=== PATIENT | female | born 1960 | race Caucasian/White ===

== ENCOUNTER → 2016-08-10 | Outpatient (CLI) | payer MEDICAID | LOC: SP 14:35 | PROVIDERS: ATTEND Physician Assistant | DX: M79.662 Pain in left lower leg (principal) | CPT/HCPCS: 93971 ==

== ENCOUNTER 2016-11-06 10:52 | Inpatient (IN) | payer MEDICAID ==
--- NOTE | 2016-11-06 11:33 | ER Document Report ---
ED Medical Screen (RME) - General Chief Complaint: Skin Problem Stated Complaint: SKIN PROBLEM Time Seen by Provider: 11/06/16 11:30 Mode of Arrival: Ambulatory Information source: Patient TRAVEL OUTSIDE OF THE [place] IN LAST 30 DAYS: No - HPI Onset: Other - 2 DAYS AGO Onset/Duration: Gradual Quality of pain: Burning, Dull Severity: Moderate Associated Symptoms: Chills, Sweating Exacerbated by: Denies Relieved by: Denies Similar symptoms previously: Yes - CELLULITIS, IN LOWER EXTREMITY Recently seen / treated by doctor: No - Related Data Allergies/Adverse Reactions: adhesive Allergy (Verified 11/06/16 10:55) Cephalosporins Allergy (Verified 11/06/16 10:55) Iodine and Iodide Containing Produc Allergy (Verified 11/06/16 10:55) Home Medications: Current Home Medications Nystatin/Triamcin [Nystatin-Triamcinolone Ointm] 15 gm TP BID 11/06/16 [History] Phentermine HCl 37.5 mg PO DAILY 11/06/16 [History] Past Medical History - General Information source: Patient - Social History Cigarette use (# per day): No Chew tobacco use (# tins/day): No Frequency of alcohol use: None Drug Abuse: None Lives with: Alone Family history: None - Past Medical History Cardiac Medical History: Reports: Hx Hypertension Denies: Hx Coronary Artery Disease, Hx Heart Attack Pulmonary Medical History: Reports: Hx Asthma, Hx Bronchitis Denies: Hx COPD, Hx Pneumonia Neurological Medical History: Denies: Hx Cerebrovascular Accident, Hx Seizures Renal/ Medical History: Denies: Hx Peritoneal Dialysis Musculoskeltal Medical History: Denies Hx Arthritis Skin Medical History: Reports Hx Cellulitis Psychiatric Medical History: Reports: Hx Depression Past Surgical History: Reports: Hx Section, Hx Cholecystectomy, Hx Orthopedic Surgery - foot, Hx Vascular Surgery - umbilical hernia - Immunizations Hx Diphtheria, Pertussis, Tetanus Vaccination: Yes Review of Systems - Review of Systems Constitutional: See HPI Skin: See HPI Physical Exam - Vital signs Vitals: Temp Pulse Resp BP Pulse Ox 98.5 F 126 H 20 144/60 H 95 11/06/16 10:54 11/06/16 10:54 11/06/16 10:54 11/06/16 10:54 11/06/16 10:54 Interpretation: Tachycardic. No: Tachypneic, Febrile Course - Vital Signs Vital signs: Temp Pulse Resp BP Pulse Ox 98.5 F 126 H 20 144/60 H 95 11/06/16 10:54 11/06/16 10:54 11/06/16 10:54 11/06/16 10:54 11/06/16 10:54
[2016-11-06 12:32] LABS: ABSOLUTE EOSINOPHILS # (AUTO) 0.1 10^3/uL (0.0-0.6); ABSOLUTE LYMPHOCYTES (AUTO) 1.9 10^3/uL (0.5-4.7); ABSOLUTE MONOCYTES (AUTO) 0.6 10^3/uL (0.1-1.4); ABSOLUTE NEUT (AUTO) 9.1 10^3/uL (1.7-8.2); BASOPHILS % (AUTO) 0.4 % (0-2); EOSINOPHILS % (AUTO) 1.1 % (0-6); HEMATOCRIT 38.3 % (36.0-47.0); HEMOGLOBIN 11.9 g/dL (12.0-15.5); HGB HCT DIFFERENCE -2.6; LYMPHOCYTES % (AUTO) 16.4 % (13-45); MEAN CORPUSCULAR HEMOGLOBIN 25.6 pg (27.0-33.4); MEAN CORPUSCULAR HGB CONC 30.9 g/dL (32.0-36.0); MEAN CORPUSCULAR VOLUME 83 fl (80-97); MONOCYTES % (AUTO) 4.9 % (3-13); RED BLOOD COUNT 4.64 10^6/uL (3.72-5.28); SEGMENTED NEUTROPHILS % (AUTO) 77.2 % (42-78); WHITE BLOOD COUNT 11.8 10^3/uL (4.0-10.5)
[2016-11-06 12:41] LABS: APPEARANCE,URINE CLOUDY; BILIRUBIN,URINE NEGATIVE (NEGATIVE); GLUCOSE, URINE NEGATIVE (NEGATIVE); KETONES,URINE NEGATIVE (NEGATIVE); LEUKOCYTE ESTERASE,URINE NEGATIVE (NEGATIVE); NITRITE,URINE NEGATIVE (NEGATIVE); PROTEIN,URINE 100 mg/dL (NEGATIVE); URINE SPECIFIC GRAVITY 1.028
[2016-11-06 12:55] LABS: ALANINE AMINOTRANSFERASE 25 U/L (9-52); ALBUMIN 3.5 g/dL (3.5-5.0); ALKALINE PHOSPHATASE 110 U/L (38-126); ANION GAP 11 (5-19); ASPARTATE AMINO TRANSFERASE 32 U/L (14-36); BILIRUBIN,DIRECT 0.4 mg/dL (0.0-0.4); BILIRUBIN,TOTAL 0.6 mg/dL (0.2-1.3); BLOOD UREA NITROGEN 12 mg/dL (7-20); CALCIUM 8.6 mg/dL (8.4-10.2); CARBON DIOXIDE 29 mmol/L (22-30); CHLORIDE 101 mmol/L (98-107); CREATININE RESULT 0.76 mg/dL (0.52-1.25); GLUCOSE 79 mg/dL (75-110); POTASSIUM 3.9 mmol/L (3.6-5.0); TOTAL PROTEIN 7.9 g/dL (6.3-8.2)
[2016-11-06] MEDS ORDERED: MORPHINE SULFATE 10 MG/ML INJ IV ONE (13:23)
[2016-11-06] MEDS ORDERED: VANCOMYCIN HCL INJ 1000 MG VIAL IV ONE (14:11)
--- NOTE | 2016-11-06 14:17 | ER Document Report ---
ED General - General Chief Complaint: Skin Problem Stated Complaint: SKIN PROBLEM Time Seen by Provider: 11/06/16 11:30 Mode of Arrival: Ambulatory Information source: Patient Notes: This is a 56-year-old female with a history of morbid obesity and VTE (on Coumadin), who presents to the emergency room with complaints of fever and chills for the past 2-3 days. Patient states that her abdominal wall started to get red, painful and warm last night. TRAVEL OUTSIDE OF THE [place] IN LAST 30 DAYS: No - HPI Onset: Last week Onset/Duration: Sudden Quality of pain: No pain Associated symptoms: Fever. denies: Chest pain, Shortness of breath Exacerbated by: Denies Relieved by: Denies Similar symptoms previously: No Recently seen / treated by doctor: Yes - Related Data Allergies/Adverse Reactions: adhesive Allergy (Verified 11/06/16 10:55) Cephalosporins Allergy (Verified 11/06/16 10:55) Iodine and Iodide Containing Produc Allergy (Verified 11/06/16 10:55) Home Medications: Current Home Medications Nystatin/Triamcin [Nystatin-Triamcinolone Ointm] 15 gm TP BID 11/06/16 [History] Phentermine HCl 37.5 mg PO DAILY 11/06/16 [History] Past Medical History - General Information source: Patient - Social History Smoking Status: Never Smoker Cigarette use (# per day): No Chew tobacco use (# tins/day): No Frequency of alcohol use: None Drug Abuse: None Lives with: Alone Family History: Reviewed & Not Pertinent Patient has suicidal ideation: No Patient has homicidal ideation: No - Past Medical History Cardiac Medical History: Reports: Hx Hypertension Denies: Hx Coronary Artery Disease, Hx Heart Attack Pulmonary Medical History: Reports: Hx Asthma, Hx Bronchitis Denies: Hx COPD, Hx Pneumonia Neurological Medical History: Denies: Hx Cerebrovascular Accident, Hx Seizures Renal/ Medical History: Denies: Hx Peritoneal Dialysis Musculoskeltal Medical History: Denies Hx Arthritis Skin Medical History: Reports Hx Cellulitis Psychiatric Medical History: Reports: Hx Depression Past Surgical History: Reports: Hx Section, Hx Cholecystectomy, Hx Orthopedic Surgery - foot, Hx Vascular Surgery - umbilical hernia - Immunizations Hx Diphtheria, Pertussis, Tetanus Vaccination: Yes Review of Systems - Review of Systems Constitutional: Chills, Fever EENT: No symptoms reported Cardiovascular: No symptoms reported Respiratory: No symptoms reported Gastrointestinal: No symptoms reported Genitourinary: No symptoms reported Female Genitourinary: No symptoms reported Musculoskeletal: No symptoms reported Skin: See HPI Hematologic/Lymphatic: No symptoms reported Neurological/Psychological: No symptoms reported Physical Exam - Vital signs Vitals: Temp Pulse Resp BP Pulse Ox 98.5 F 126 H 20 144/60 H 95 11/06/16 10:54 11/06/16 10:54 11/06/16 10:54 11/06/16 10:54 11/06/16 10:54 Notes: Physical exam: GENERAL: 56-year-old female, alert and oriented 3, no acute distress HEAD: Atraumatic, normocephalic. EYES: Pupils equal round and reactive to light, extraocular movements intact, sclera anicteric, conjunctiva are normal. ENT: TMs normal, nares patent, oropharynx clear without exudates. Moist mucous membranes. NECK: Normal range of motion, supple without lymphadenopathy or JVD. LUNGS: Breath sounds clear to auscultation bilaterally and equal. No wheezes rales or rhonchi. HEART: Regular rate and rhythm without murmurs, rubs or gallops. ABDOMEN: Soft, normoactive bowel sounds. Patient has a large abdominal wall ( morbid obesity). She does have marked erythema and warmth to the abdomen below the umbilicus on both sides. There is no palpable fluctuance and there is no drainage. EXTREMITIES: Normal range of motion, no pitting or edema. No clubbing or cyanosis. NEUROLOGICAL: Cranial nerves II through XII grossly intact. Normal speech, normal gait. PSYCH: Normal mood, normal affect. SKIN: Warm, Dry, normal turgor, no rashes or lesions noted. Course - Vital Signs Vital signs: Temp Pulse Resp BP Pulse Ox 98.3 F 107 H 18 127/81 H 93 11/06/16 23:32 11/06/16 23:32 11/06/16 23:32 11/06/16 23:32 11/06/16 23:32 - Laboratory Result Diagrams: 11/06/16 12:00 11/06/16 12:00 Laboratory results interpreted by me: 11/06/16 11/06/16 11/06/16 11:50 12:00 12:00 WBC 11.8 H Hgb 11.9 L MCH 25.6 L MCHC 30.9 L RDW 18.0 H Absolute Neutrophils 9.1 H PT 29.9 H Urine Protein 100 H Urine Blood MODERATE H Urine Urobilinogen 2.0 H Discharge - Discharge Clinical Impression: Abdominal wall cellulitis Condition: Stable Disposition: ADMITTED INPATIENT Admitting Provider: Hospitalist - Dr. Goyal Unit Admitted: Medical Floor
[2016-11-06] MEDS ORDERED: ACETAMINOPHEN 325 MG TABLET PO PRN (14:21)
[2016-11-06] MEDS ORDERED: ONDANSETRON HCL INJ/PF 4 MG/2 ML SDV IV PRN (14:21)
[2016-11-06] MEDS ORDERED: VANCOMYCIN HCL 0 MG in DEXTROSE 5%-WATER 250 ML IV NR (14:30)
[2016-11-06 14:45] LABS: PROTHROMBIN TIME 29.9 SEC (11.4-15.4)
--- NOTE | 2016-11-06 15:03 | PDOC H&P ---
History of Present Illness Admission Date/PCP: MARILY ALFONSO PA-C Patient complains of: Fever History of Present Illness: CARLYLE SINHA is a 56 year old female with morbid obesity presents with 24 hours of fever. When she went to bed last evening she felt like she was "getting the flu". She had no other symptoms at that time but when she woke up this morning she used a mirror to look at her abdominal pannus and noted that it was extremely red. She has had a history of right lower extremity cellulitis in the past. She is reportedly a diabetic prior records but states she does not take any medications for this. Past Medical History Cardiac Medical History: Denies: Coronary Artery Disease, Myocardial Infarction Pulmonary Medical History: Reports: Asthma, Bronchitis Denies: Chronic Obstructive Pulmonary Disease (COPD), Pneumonia Neurological Medical History: Denies: Seizures Endocrine Medical History: Reports: Diabetes Mellitus Type 2 - Diet controlled Musculoskeltal Medical History: Denies: Arthritis Psychiatric Medical History: Reports: Depression Hematology: Denies: Anemia Past Surgical History Past Surgical History: Reports: Section, Cholecystectomy, Orthopedic Surgery - foot, Vascular Surgery - umbilical hernia Social History Information Source: Patient Occupation: Works at [employer] Lives with: Alone Smoking Status: Never Smoker Frequency of Alcohol Use: None Hx Recreational Drug Use: No Hx Prescription Drug Abuse: No - Advance Directive Resuscitation Status: Full Code Family History Family History: None - Adopted Parental Family History Reviewed: Yes Children Family History Reviewed: Yes Sibling(s) Family History Reviewed.: Yes Medication/Allergy Home Medications: Loratadine [Claritin 10 mg Tablet] 10 mg PO DAILY 12/02/15 Warfarin Sodium 10 mg PO DAILY 12/02/15 Nystatin/Triamcin [Nystatin-Triamcinolone Ointm] 15 gm TP BID 11/06/16 Phentermine HCl 37.5 mg PO DAILY 11/06/16 Allergies/Adverse Reactions: adhesive Allergy (Verified 11/06/16 10:55) Cephalosporins Allergy (Verified 11/06/16 10:55) Iodine and Iodide Containing Produc Allergy (Verified 11/06/16 10:55) Review of Systems Constitutional: PRESENT: chills, fatigue, fever(s). ABSENT: headache(s), weight gain, weight loss Eyes: ABSENT: visual disturbances Ears: ABSENT: hearing changes Cardiovascular: ABSENT: chest pain, dyspnea on exertion, edema, orthropnea, palpitations Respiratory: ABSENT: cough, hemoptysis Gastrointestinal: PRESENT: abdominal pain. ABSENT: constipation, diarrhea, hematemesis, hematochezia, nausea, vomiting Genitourinary: ABSENT: dysuria, hematuria Musculoskeletal: ABSENT: joint swelling Integumentary: PRESENT: erythema. ABSENT: rash, wounds Neurological: ABSENT: abnormal gait, abnormal speech, confusion, dizziness, focal weakness, syncope Psychiatric: ABSENT: anxiety, depression, homidical ideation, suicidal ideation Endocrine: ABSENT: cold intolerance, heat intolerance, polydipsia, polyuria Hematologic/Lymphatic: ABSENT: easy bleeding, easy bruising Physical Exam Vital Signs: Temp Pulse Resp BP Pulse Ox 98.5 F 126 H 20 144/60 H 95 11/06/16 10:54 11/06/16 10:54 11/06/16 10:54 11/06/16 10:54 11/06/16 10:54 Intake & Output 11/05/16 11/06/16 11/07/16 06:59 06:59 06:59 Weight 189.9 kg PHYSICAL EXAM: GENERAL: Appears well, no acute distress HEENT: Normocephalic, no scleral icterus, conjunctiva clear, EOEM intact, PERRLA , moist mucous membranes NECK: trachea midline, no thyromegally RESPIRATORY: Clear to auscultation, no wheezes/rhonchi CARDIAC: Regular rate and rhythm, no murmur/sulma/rub ABDOMEN: Soft, no distension, no tenderness, no guarding, normal bowel sounds, negative Amezcua sign RECTAL: deferred : deferred EXTREMITIES: No edema, cyanosis, clubbing MUSCULOSKELETAL: No joint swelling or deformity VASCULAR: normal peripheral pulses NEUROLOGIC: Alert, oriented to person/place/time, normal speech, cranial nerves grossly intact, 5/5 strength in all extremities, tactile sensation intact in all extremities SKIN: Erythema/induration of abdominal pannus, no fluctuance noted PSYCHIATRIC: Normal mood, normal affect Results Laboratory Results: 11/06/16 12:00 11/06/16 12:00 11/06/16 11/06/16 11/06/16 11:50 12:00 12:00 WBC 11.8 H RBC 4.64 Hgb 11.9 L Hct 38.3 MCV 83 MCH 25.6 L MCHC 30.9 L RDW 18.0 H Plt Count 273 Seg Neutrophils % 77.2 Lymphocytes % 16.4 Monocytes % 4.9 Eosinophils % 1.1 Basophils % 0.4 Absolute Neutrophils 9.1 H Absolute Lymphocytes 1.9 Absolute Monocytes 0.6 Absolute Eosinophils 0.1 Absolute Basophils 0.0 Sodium 141.0 Potassium 3.9 Chloride 101 Carbon Dioxide 29 Anion Gap 11 BUN 12 Creatinine 0.76 Est GFR ( Amer) > 60 Est GFR (Non-Af Amer) > 60 Glucose 79 Calcium 8.6 Total Bilirubin 0.6 AST 32 ALT 25 Alkaline Phosphatase 110 Total Protein 7.9 Albumin 3.5 Urine Color CANDY Urine Appearance CLOUDY Urine pH 5.0 Ur Specific [place] 1.028 Urine Protein 100 H Urine Glucose (UA) NEGATIVE Urine Ketones NEGATIVE Urine Blood MODERATE H Urine Nitrite NEGATIVE Ur Leukocyte Esterase NEGATIVE Urine WBC (Auto) 10 Urine RBC (Auto) 23 Assessment & Plan - Diagnosis (1) Abdominal wall cellulitis Is this a current diagnosis for this admission?: YesPlan: Admit to the hospital. Continue IV vancomycin as initiated in the emergency department. Patient will likely be in the hospital for 2-3 days until she can transition to oral antibiotics and discharge home. (2) Diet-controlled diabetes mellitus Is this a current diagnosis for this admission?: YesPlan: Blood glucose normal. Hemoglobin A1c last year normal. (3) Morbid obesity Is this a current diagnosis for this admission?: Yes (4) History of DVT (deep vein thrombosis) Is this a current diagnosis for this admission?: YesPlan: Continue home dose of Coumadin 10 mg daily. Monitor PT/INR daily. - Time Time Spent: 50 to 70 Minutes Anticipated discharge: Home Within: within 72 hours
[2016-11-06] MEDS: OXYCODONE-ACETAMINOPHEN 5-325 MG TABLET PO PRN (22:13)
[2016-11-06] MEDS: LORATADINE 10 MG TABLET PO SCH (22:13)
[2016-11-06] MEDS: VANCOMYCIN HCL 1,250 MG in DEXTROSE 5%-WATER 250 ML IV SCH (22:13)
[2016-11-06] MEDS: WARFARIN SODIUM 5 MG TABLET PO SCH (22:13)
[2016-11-06] MEDS: NYSTATIN/TRIAMCIN OINTMENT 15 GM TP SCH (22:13)
[2016-11-07] MEDS: VANCOMYCIN HCL 1,250 MG in DEXTROSE 5%-WATER 250 ML IV SCH ×3 (06:05→21:42)
[2016-11-07] MEDS: OXYCODONE-ACETAMINOPHEN 5-325 MG TABLET PO PRN ×2 (06:16→21:42)
[2016-11-07 06:24] LABS: ABSOLUTE EOSINOPHILS # (AUTO) 0.3 10^3/uL (0.0-0.6); ABSOLUTE LYMPHOCYTES (AUTO) 1.5 10^3/uL (0.5-4.7); ABSOLUTE MONOCYTES (AUTO) 0.6 10^3/uL (0.1-1.4); ABSOLUTE NEUT (AUTO) 5.3 10^3/uL (1.7-8.2); BASOPHILS % (AUTO) 0.4 % (0-2); EOSINOPHILS % (AUTO) 3.4 % (0-6); HEMATOCRIT 33.7 % (36.0-47.0); HEMOGLOBIN 10.7 g/dL (12.0-15.5); HGB HCT DIFFERENCE -1.6; LYMPHOCYTES % (AUTO) 19.6 % (13-45); MEAN CORPUSCULAR HEMOGLOBIN 25.9 pg (27.0-33.4); MEAN CORPUSCULAR HGB CONC 31.7 g/dL (32.0-36.0); MEAN CORPUSCULAR VOLUME 82 fl (80-97); MONOCYTES % (AUTO) 8.2 % (3-13); RED BLOOD COUNT 4.13 10^6/uL (3.72-5.28); RED CELL DISTRIBUTION WIDTH 17.8 % (11.5-14.0); SEGMENTED NEUTROPHILS % (AUTO) 68.4 % (42-78); WHITE BLOOD COUNT 7.8 10^3/uL (4.0-10.5)
[2016-11-07 06:30] LABS: PROTHROMBIN TIME 33.5 SEC (11.4-15.4)
[2016-11-07 06:43] LABS: ANION GAP 8 (5-19); BLOOD UREA NITROGEN 15 mg/dL (7-20); CALCIUM 8.5 mg/dL (8.4-10.2); CARBON DIOXIDE 32 mmol/L (22-30); CHLORIDE 101 mmol/L (98-107); CREATININE RESULT 0.81 mg/dL (0.52-1.25); GLUCOSE 98 mg/dL (75-110); POTASSIUM 4.1 mmol/L (3.6-5.0); SODIUM 141.1 mmol/L (137-145)
[2016-11-07] MEDS: NYSTATIN/TRIAMCIN OINTMENT 15 GM TP SCH (09:13)
[2016-11-07] MEDS ORDERED: LORATADINE 10 MG TABLET PO SCH (10:00)
--- NOTE | 2016-11-07 11:06 | PDOC PROGRESS REPORT ---
Subjective Progress Note for:: 11/07/16 Subjective:: Patient is feeling subjectively better today in general. Abdominal discomfort has improved. She denies fevers or chills. Physical Exam Vital Signs: Temp Pulse Resp BP Pulse Ox 97.9 F 102 H 20 130/76 H 91 L 11/07/16 07:14 11/07/16 07:14 11/07/16 07:14 11/07/16 07:14 11/07/16 07:14 Intake & Output 11/06/16 11/07/16 11/08/16 06:59 06:59 06:59 Intake Total 670 Output Total 1200 Balance -530 Weight 188.3 kg GENERAL: No acute distress HEENT: Conjunctiva clear, nonicteric, moist mucous membranes, no JVD, midline trachea RESPIRATORY: Clear to auscultation bilaterally, no wheezes, no rhonchi CARDIAC: Regular rate and rhythm, no murmurs/gallops/rubs ABDOMEN: Soft, nondistended, nontender, positive bowel sounds, no rebound, no guarding EXTREMETIES: No edema, cyanosis, clubbing NEUROLOGIC: Alert, oriented to person/place/time, CN's grossly intact, no focal deficits SKIN: Erythema/induration of abdominal pannus slightly improved but still pretty extensive PSYCH: Normal mood, normal affect Results Laboratory Results: 11/07/16 05:53 11/07/16 05:53 11/06/16 11/07/16 11/07/16 15:00 05:53 05:53 WBC 7.8 RBC 4.13 Hgb 10.7 L Hct 33.7 L MCV 82 MCH 25.9 L MCHC 31.7 L RDW 17.8 H Plt Count 252 Seg Neutrophils % 68.4 Lymphocytes % 19.6 Monocytes % 8.2 Eosinophils % 3.4 Basophils % 0.4 Absolute Neutrophils 5.3 Absolute Lymphocytes 1.5 Absolute Monocytes 0.6 Absolute Eosinophils 0.3 Absolute Basophils 0.0 Sodium 141.1 Potassium 4.1 Chloride 101 Carbon Dioxide 32 H Anion Gap 8 BUN 15 Creatinine 0.81 Est GFR ( Amer) > 60 Est GFR (Non-Af Amer) > 60 Glucose 98 Lactic Acid 0.9 Calcium 8.5 Assessment & Plan - Diagnosis (1) Abdominal wall cellulitis Is this a current diagnosis for this admission?: YesPlan: Continue IV vancomycin until cellulitis clinically improved significantly. Abdominal wall cellulitis is to extensive to safely treat as an outpatient. Patient will likely be in the hospital for 2-3 days until she can transition to oral antibiotics and discharge home. (2) Diet-controlled diabetes mellitus Is this a current diagnosis for this admission?: YesPlan: Diet controlled. Hemoglobin A1c 6.1 (3) Morbid obesity Is this a current diagnosis for this admission?: Yes (4) History of DVT (deep vein thrombosis) Is this a current diagnosis for this admission?: YesPlan: Continue home dose of Coumadin 10 mg daily. Monitor PT/INR daily. - Time Time Spent with patient: 25-34 minutes Anticipated discharge: Home Within: within 72 hours
[2016-11-07] MEDS: NYSTATIN TOPICAL POWDER 15 GM TP SCH (17:59)
[2016-11-07] MEDS: LORATADINE 10 MG TABLET PO SCH (21:42)
[2016-11-07] MEDS: WARFARIN SODIUM 5 MG TABLET PO SCH (21:42)
[2016-11-08 06:45] LABS: ABSOLUTE EOSINOPHILS # (AUTO) 0.5 10^3/uL (0.0-0.6); ABSOLUTE LYMPHOCYTES (AUTO) 1.8 10^3/uL (0.5-4.7); ABSOLUTE MONOCYTES (AUTO) 0.6 10^3/uL (0.1-1.4); ABSOLUTE NEUT (AUTO) 4.5 10^3/uL (1.7-8.2); BASOPHILS % (AUTO) 0.5 % (0-2); EOSINOPHILS % (AUTO) 6.3 % (0-6); HEMATOCRIT 34.5 % (36.0-47.0); HGB HCT DIFFERENCE -1.5; LYMPHOCYTES % (AUTO) 24.2 % (13-45); MEAN CORPUSCULAR HEMOGLOBIN 26.1 pg (27.0-33.4); MEAN CORPUSCULAR HGB CONC 31.9 g/dL (32.0-36.0); MEAN CORPUSCULAR VOLUME 82 fl (80-97); MONOCYTES % (AUTO) 7.6 % (3-13); RED BLOOD COUNT 4.22 10^6/uL (3.72-5.28); RED CELL DISTRIBUTION WIDTH 17.9 % (11.5-14.0); SEGMENTED NEUTROPHILS % (AUTO) 61.4 % (42-78); WHITE BLOOD COUNT 7.3 10^3/uL (4.0-10.5)
[2016-11-08] MEDS: VANCOMYCIN HCL 1,250 MG in DEXTROSE 5%-WATER 250 ML IV SCH ×3 (06:45→23:30)
[2016-11-08] MEDS: OXYCODONE-ACETAMINOPHEN 5-325 MG TABLET PO PRN (06:50)
[2016-11-08 06:53] LABS: PROTHROMBIN TIME 34.4 SEC (11.4-15.4)
[2016-11-08 07:07] LABS: ANION GAP 7 (5-19); BLOOD UREA NITROGEN 15 mg/dL (7-20); CALCIUM 8.6 mg/dL (8.4-10.2); CARBON DIOXIDE 30 mmol/L (22-30); CHLORIDE 102 mmol/L (98-107); CREATININE RESULT 0.71 mg/dL (0.52-1.25); GLUCOSE 99 mg/dL (75-110); POTASSIUM 4.6 mmol/L (3.6-5.0); SODIUM 139.1 mmol/L (137-145)
--- NOTE | 2016-11-08 09:38 | PDOC PROGRESS REPORT ---
Subjective Progress Note for:: 11/08/16 Subjective:: Patient is feeling subjectively better today in general. She denies fevers or chills. Physical Exam Vital Signs: Temp Pulse Resp BP Pulse Ox 98.6 F 107 H 16 126/65 H 93 11/08/16 08:00 11/08/16 08:00 11/08/16 08:00 11/08/16 08:00 11/08/16 08:00 Intake & Output 11/07/16 11/08/16 11/09/16 06:59 06:59 06:59 Intake Total 670 2600 Output Total 1200 2400 Balance -530 200 Weight 188.3 kg 188.3 kg GENERAL: No acute distress HEENT: Conjunctiva clear, nonicteric, moist mucous membranes, no JVD, midline trachea RESPIRATORY: Clear to auscultation bilaterally, no wheezes, no rhonchi CARDIAC: Regular rate and rhythm, no murmurs/gallops/rubs ABDOMEN: Soft, nondistended, nontender, positive bowel sounds, no rebound, no guarding EXTREMETIES: No edema, cyanosis, clubbing NEUROLOGIC: Alert, oriented to person/place/time, CN's grossly intact, no focal deficits SKIN: Erythema/induration of abdominal pannus slightly improved but remains extensive PSYCH: Normal mood, normal affect Results Laboratory Results: 11/08/16 06:30 11/08/16 06:30 11/08/16 11/08/16 06:30 06:30 WBC 7.3 RBC 4.22 Hgb 11.0 L Hct 34.5 L MCV 82 MCH 26.1 L MCHC 31.9 L RDW 17.9 H Plt Count 265 Seg Neutrophils % 61.4 Lymphocytes % 24.2 Monocytes % 7.6 Eosinophils % 6.3 H Basophils % 0.5 Absolute Neutrophils 4.5 Absolute Lymphocytes 1.8 Absolute Monocytes 0.6 Absolute Eosinophils 0.5 Absolute Basophils 0.0 Sodium 139.1 Potassium 4.6 Chloride 102 Carbon Dioxide 30 Anion Gap 7 BUN 15 Creatinine 0.71 Est GFR ( Amer) > 60 Est GFR (Non-Af Amer) > 60 Glucose 99 Calcium 8.6 Assessment & Plan - Diagnosis (1) Abdominal wall cellulitis Is this a current diagnosis for this admission?: YesPlan: Continue IV vancomycin until cellulitis clinically improved significantly. Abdominal wall cellulitis is to extensive to safely treat as an outpatient. Patient can possibly discharge home on oral antibiotic tomorrow if improved. (2) Diet-controlled diabetes mellitus Is this a current diagnosis for this admission?: Yes (3) Morbid obesity Is this a current diagnosis for this admission?: Yes (4) History of DVT (deep vein thrombosis) Is this a current diagnosis for this admission?: YesPlan: Continue home dose of Coumadin 10 mg daily. Monitor PT/INR daily. - Time Time Spent with patient: 25-34 minutes Anticipated discharge: Home Within: within 24 hours
[2016-11-08] MEDS: NYSTATIN TOPICAL POWDER 15 GM TP SCH ×2 (10:10→17:00)
[2016-11-08] MEDS: WARFARIN SODIUM 5 MG TABLET PO SCH (21:13)
[2016-11-08] MEDS: LORATADINE 10 MG TABLET PO SCH (21:13)
[2016-11-09 05:38] LABS: PROTHROMBIN TIME 39.3 SEC (11.4-15.4)
[2016-11-09] MEDS: VANCOMYCIN HCL 1,250 MG in DEXTROSE 5%-WATER 250 ML IV SCH (07:05)
--- NOTE | 2016-11-09 09:11 | PDOC DISCHARGE SUMMARY ---
General - Admit/Disc Date/PCP Admission Date/Primary Care Provider: 11/06/16 14:21 MARILY ALFONSO PA-C Discharge Date: 11/09/16 - Discharge Diagnosis (1) Abdominal wall cellulitis Is this a current diagnosis for this admission?: Yes (2) Diet-controlled diabetes mellitus Is this a current diagnosis for this admission?: Yes (3) Morbid obesity Is this a current diagnosis for this admission?: Yes (4) History of DVT (deep vein thrombosis) Is this a current diagnosis for this admission?: Yes - Additional Information Resuscitation Status: Full Code Discharge Diet: Regular Discharge Activity: Activity As Tolerated Home Medications: Loratadine [Claritin 10 mg Tablet] 10 mg PO DAILY 12/02/15 Phentermine HCl 37.5 mg PO DAILY 11/06/16 Nystatin [Mycostatin Topical Powder 15 gm] 1 applic TP BID #1 bottle 11/09/16 Oxycodone HCl/Acetaminophen [Percocet 5-325 mg Tablet] 1 tab PO Q6HP PRN #10 tablet 11/09/16 Sulfamethoxazole/Trimethoprim [Bactrim Ds Tablet] 1 each PO BID #20 tablet 11/09 Warfarin Sodium [Coumadin 5 mg Tablet] 7.5 mg PO QHS #45 tablet 11/09/16 History of Present Illness Patient complains of: Fevers History of Present Illness: CARLYLE SINHA is a 56 year old female with morbid obesity presents with 24 hours of fever. When she went to bed last evening she felt like she was "getting the flu". She had no other symptoms at that time but when she woke up this morning she used a mirror to look at her abdominal pannus and noted that it was extremely red. She has had a history of right lower extremity cellulitis in the past. She is reportedly a diabetic prior records but states she does not take any medications for this. Hospital Course Hospital Course: Patient was admitted for abdominal wall cellulitis that was pretty extensive. She was placed on IV vancomycin and had improvement in cellulitis. White blood count was elevated on admission but normalized on IV antibiotic. Patient was afebrile at time of discharge. She will be transitioned to oral Bactrim at discharge. Patient is on chronic anticoagulation with Coumadin for history of DVT. She normally takes Coumadin 10 mg daily. Her INR has been increasing while on antibiotics and is 3.8 at time of discharge. She is advised to hold Coumadin for 2 days and then decrease Coumadin to 7.5 mg daily. Patient is advised to go to her primary care provider in 2-3 days for reevaluation of soft tissue infection and repeat PT/INR Physical Exam Vital Signs: Temp Pulse Resp BP Pulse Ox 98 F 109 H 21 H 122/43 L 92 11/09/16 04:00 11/09/16 04:00 11/09/16 04:00 11/09/16 04:00 11/09/16 04:00 Intake & Output 11/08/16 11/09/16 11/10/16 06:59 06:59 06:59 Intake Total 2600 1386 Output Total 2400 1000 Balance 200 386 Weight 188.3 kg 188.3 kg GENERAL: No acute distress HEENT: Conjunctiva clear, nonicteric, moist mucous membranes, no JVD, midline trachea RESPIRATORY: Clear to auscultation bilaterally, no wheezes, no rhonchi CARDIAC: Regular rate and rhythm, no murmurs/gallops/rubs ABDOMEN: Soft, nondistended, nontender, positive bowel sounds, no rebound, no guarding EXTREMETIES: No edema, cyanosis, clubbing NEUROLOGIC: Alert, oriented to person/place/time, CN's grossly intact, no focal deficits SKIN: Erythema/induration of abdominal pannus improved as compared to admission PSYCH: Normal mood, normal affect Results Laboratory Results: 11/08/16 06:30 11/08/16 06:30 Labs- Entire Visit 11/06/16 11/06/16 11/06/16 11:50 12:00 12:00 WBC 11.8 H RBC 4.64 Hgb 11.9 L Hct 38.3 MCV 83 MCH 25.6 L MCHC 30.9 L RDW 18.0 H Plt Count 273 Seg Neutrophils % 77.2 Lymphocytes % 16.4 Monocytes % 4.9 Eosinophils % 1.1 Basophils % 0.4 Absolute Neutrophils 9.1 H Absolute Lymphocytes 1.9 Absolute Monocytes 0.6 Absolute Eosinophils 0.1 Absolute Basophils 0.0 PT INR Sodium 141.0 Potassium 3.9 Chloride 101 Carbon Dioxide 29 Anion Gap 11 BUN 12 Creatinine 0.76 Est GFR ( Amer) > 60 Est GFR (Non-Af Amer) > 60 Glucose 79 Hemoglobin A1c % Lactic Acid Calcium 8.6 Total Bilirubin 0.6 Direct Bilirubin 0.4 Indirect Bilirubin Not Reportable Neonat Total Bilirubin Not Reportable AST 32 ALT 25 Alkaline Phosphatase 110 Total Protein 7.9 Albumin 3.5 Urine Color CANDY Urine Appearance CLOUDY Urine pH 5.0 Ur Specific [place] 1.028 Urine Protein 100 H Urine Glucose (UA) NEGATIVE Urine Ketones NEGATIVE Urine Blood MODERATE H Urine Nitrite NEGATIVE Urine Bilirubin NEGATIVE Urine Urobilinogen 2.0 H Ur Leukocyte Esterase NEGATIVE Urine WBC (Auto) 10 Urine RBC (Auto) 23 Urine Bacteria (Auto) TRACE Squamous Epi Cells Auto 14 Urine Mucus (Auto) OCC Urine Ascorbic Acid NEGATIVE Time Trough Drawn Vancomycin Trough 11/06/16 11/06/16 11/07/16 12:00 15:00 05:53 WBC 7.8 RBC 4.13 Hgb 10.7 L Hct 33.7 L MCV 82 MCH 25.9 L MCHC 31.7 L RDW 17.8 H Plt Count 252 Seg Neutrophils % 68.4 Lymphocytes % 19.6 Monocytes % 8.2 Eosinophils % 3.4 Basophils % 0.4 Absolute Neutrophils 5.3 Absolute Lymphocytes 1.5 Absolute Monocytes 0.6 Absolute Eosinophils 0.3 Absolute Basophils 0.0 PT 29.9 H INR 2.69 Sodium Potassium Chloride Carbon Dioxide Anion Gap BUN Creatinine Est GFR ( Amer) Est GFR (Non-Af Amer) Glucose Hemoglobin A1c % Lactic Acid 0.9 Calcium Total Bilirubin Direct Bilirubin Indirect Bilirubin Neonat Total Bilirubin AST ALT Alkaline Phosphatase Total Protein Albumin Urine Color Urine Appearance Urine pH Ur Specific [place] Urine Protein Urine Glucose (UA) Urine Ketones Urine Blood Urine Nitrite Urine Bilirubin Urine Urobilinogen Ur Leukocyte Esterase Urine WBC (Auto) Urine RBC (Auto) Urine Bacteria (Auto) Squamous Epi Cells Auto Urine Mucus (Auto) Urine Ascorbic Acid Time Trough Drawn Vancomycin Trough 11/07/16 11/07/16 11/07/16 05:53 05:53 05:53 WBC RBC Hgb Hct MCV MCH MCHC RDW Plt Count Seg Neutrophils % Lymphocytes % Monocytes % Eosinophils % Basophils % Absolute Neutrophils Absolute Lymphocytes Absolute Monocytes Absolute Eosinophils Absolute Basophils PT 33.5 H INR 3.11 Sodium 141.1 Potassium 4.1 Chloride 101 Carbon Dioxide 32 H Anion Gap 8 BUN 15 Creatinine 0.81 Est GFR ( Amer) > 60 Est GFR (Non-Af Amer) > 60 Glucose 98 Hemoglobin A1c % 6.1 H Lactic Acid Calcium 8.5 Total Bilirubin Direct Bilirubin Indirect Bilirubin Neonat Total Bilirubin AST ALT Alkaline Phosphatase Total Protein Albumin Urine Color Urine Appearance Urine pH Ur Specific [place] Urine Protein Urine Glucose (UA) Urine Ketones Urine Blood Urine Nitrite Urine Bilirubin Urine Urobilinogen Ur Leukocyte Esterase Urine WBC (Auto) Urine RBC (Auto) Urine Bacteria (Auto) Squamous Epi Cells Auto Urine Mucus (Auto) Urine Ascorbic Acid Time Trough Drawn Vancomycin Trough 11/08/16 11/08/16 11/08/16 06:30 06:30 06:30 WBC 7.3 RBC 4.22 Hgb 11.0 L Hct 34.5 L MCV 82 MCH 26.1 L MCHC 31.9 L RDW 17.9 H Plt Count 265 Seg Neutrophils % 61.4 Lymphocytes % 24.2 Monocytes % 7.6 Eosinophils % 6.3 H Basophils % 0.5 Absolute Neutrophils 4.5 Absolute Lymphocytes 1.8 Absolute Monocytes 0.6 Absolute Eosinophils 0.5 Absolute Basophils 0.0 PT INR Sodium 139.1 Potassium 4.6 Chloride 102 Carbon Dioxide 30 Anion Gap 7 BUN 15 Creatinine 0.71 Est GFR ( Amer) > 60 Est GFR (Non-Af Amer) > 60 Glucose 99 Hemoglobin A1c % Lactic Acid Calcium 8.6 Total Bilirubin Direct Bilirubin Indirect Bilirubin Neonat Total Bilirubin AST ALT Alkaline Phosphatase Total Protein Albumin Urine Color Urine Appearance Urine pH Ur Specific [place] Urine Protein Urine Glucose (UA) Urine Ketones Urine Blood Urine Nitrite Urine Bilirubin Urine Urobilinogen Ur Leukocyte Esterase Urine WBC (Auto) Urine RBC (Auto) Urine Bacteria (Auto) Squamous Epi Cells Auto Urine Mucus (Auto) Urine Ascorbic Acid Time Trough Drawn 0630 Vancomycin Trough 13.2 11/08/16 11/09/16 06:30 04:18 WBC RBC Hgb Hct MCV MCH MCHC RDW Plt Count Seg Neutrophils % Lymphocytes % Monocytes % Eosinophils % Basophils % Absolute Neutrophils Absolute Lymphocytes Absolute Monocytes Absolute Eosinophils Absolute Basophils PT 34.4 H 39.3 H INR 3.22 3.82 Sodium Potassium Chloride Carbon Dioxide Anion Gap BUN Creatinine Est GFR ( Amer) Est GFR (Non-Af Amer) Glucose Hemoglobin A1c % Lactic Acid Calcium Total Bilirubin Direct Bilirubin Indirect Bilirubin Neonat Total Bilirubin AST ALT Alkaline Phosphatase Total Protein Albumin Urine Color Urine Appearance Urine pH Ur Specific [place] Urine Protein Urine Glucose (UA) Urine Ketones Urine Blood Urine Nitrite Urine Bilirubin Urine Urobilinogen Ur Leukocyte Esterase Urine WBC (Auto) Urine RBC (Auto) Urine Bacteria (Auto) Squamous Epi Cells Auto Urine Mucus (Auto) Urine Ascorbic Acid Time Trough Drawn Vancomycin Trough Qualifiers PATEINT BEING DISCHARGED WITH ANY OF THE FOLLOWING DIAGNOSIS?: No Plan Time Spent: Less than 30 Minutes
--- NOTE | 2016-11-09 10:37 | Physician Advisory Note ---
Physician Advisor ProgressNote .: Pursuant to the plan for [facility], I have reviewed the medical record for this patient. Physician Advisor Statement: Status review: 56yo morbidly obese 56yo on chronic coumadin due to VTE, along w /HTN, asthma, previous cellulitis, DM-2 diet controlled, umbil hernia, depression presented 7/28 AM to ED after 2-3 days of fever/chills and then developing extensive abd wall redness/pain/heat. HR 126, RR20-22, BP 144/60, WBC 11.8, Hgb 11.9, INR 2.69 before abx, (+) induration/erythema/warmth without fluctuance/drainage. Typically, cellulitis with no prior outpt tx is most appropriate for Outpt Obs rather than Inpatient to start, changing to Inpatient if not improved enough for d/c the next day. However, attending documented in H&P that he did not expect sufficient improvement for safe d/c in less than 2 midnights of care in this particular case and therefore ordered Inpatient directly. Although leukocytosis resolved by the next day, and pt began to feel better as soon as the next day compared to on arrival, attending continued to stress the ongoing extensiveness of the cellulitis. She had nearly met SIRS criteria on arrival, and had reported systemic symptoms of fevers/chills as well. Her BMI is 69, and her abdominal size documented to be extensive, so the area involved, "below the umbilicus bilaterally" per ED physician, seen under pannus by pt using mirror, although not quantified r.e. # inches/cm, was likely tremendous given the descriptions. Clearly, there was concern for possible MRSA as cause, given the rapidity with which the cellulitis developed and the abx chosen, which further increases the need for care in not sending pt home until significantly much better, since she would have to go home on a different antibiotic than vancomycin. (If she started to fail outpt Bactrim if she was changed to this in 1 day, then she would likely be right back just as bad off as she was initially, very quickly - attending needed to be certain she was "out of the guerrero" enough to be safe to not only change abx but send home without ongoing constant monitoring.) Patient remained tachycardic, persistently 90s-100s, throughout stay of 3 nights /4 days, so she was not clearly hemodynamically stable. Additionally, she was already nicely therapeutic on her warfarin on arrival, and her INR showed consistent climb each day afterwards on the IV abx, putting her at increasing risk for excessive bleeding. An additional issue is likely underlying obesity hypoventilation syndrome, given her persistently low 90s O2 sats on RA and her BMI. Furthermore, even had she been made Obs initially, given her ongoing findings not yet improving enough for safe d/c after 1 night of IV abx, she would have been appropriate to make Inpatient the next day, 11/07. In fact, she required 4 nights of hospital care & monitoring before attending considered her sufficiently improved to safely discharge. Appropriate for Inpatient status. CK
[2016-11-09 11:20] VITALS: BP 122/43
[2016-11-09] MEDS ORDERED: ONDANSETRON HCL INJ/PF 4 MG/2 ML SDV IV PRN (12:20)
== END 2016-11-09 14:29 | disposition home or self-care (01) | DRG 603 ==
LOC: ER 10:52 → EH 14:21 → 4S 16:10 → 4N 11-07 16:17
PROVIDERS: ADMIT Family Medicine; ATTEND Family Medicine
DX: L03.311 Cellulitis of abdominal wall (principal); Z68.44 Body mass index [BMI] 60.0-69.9, adult; E66.01 Morbid (severe) obesity due to excess calories; E65 Localized adiposity; J45.909 Unspecified asthma, uncomplicated; E11.9 Type 2 diabetes mellitus without complications; I10 Essential (primary) hypertension; F32.9 Major depressive disorder, single episode, unspecified; Z86.718 Personal history of other venous thrombosis and embolism; Z90.49 Acquired absence of other specified parts of digestive tract; Z79.02 Long term (current) use of antithrombotics/antiplatelets; Z79.899 Other long term (current) drug therapy; Z88.8 Allergy status to other drugs, medicaments and biological substances; Z88.3 Allergy status to other anti-infective agents
CPT/HCPCS: 36415; 80048; 80053; 80202; 81001; 83036; 83605; 85025; 85610; 87040; 99284; J3370; J3490; J7060

== ENCOUNTER 2016-11-12 16:36 | Emergency (ER) | payer MEDICAID ==
--- NOTE | 2016-11-12 18:11 | ER Document Report ---
ED Medical Screen (RME) - General Chief Complaint: Skin Problem Stated Complaint: SKIN PROBLEM/ON STOMACH AND LEG Time Seen by Provider: 11/12/16 16:45 Mode of Arrival: Ambulatory Information source: Patient TRAVEL OUTSIDE OF THE [place] IN LAST 30 DAYS: No - HPI Patient complains to provider of: Cellulitis to abdominal wall and left lower extremity Onset: Last week Notes: 11/12/16 18:10 Patient is a 56-year-old female who presents to the emergency room complaining of cellulitis to her lower abdominal wall and left lower extremity is been going on for the past few weeks, she was admitted to this hospital on 11/09/2016 , and discharged several days later, she had a follow-up with her who sent her to the emergency room with the indication that she may need to be placed back on IV antibiotics - Related Data Allergies/Adverse Reactions: adhesive Allergy (Verified 11/12/16 16:40) Cephalosporins Allergy (Verified 11/12/16 16:40) Iodine and Iodide Containing Produc Allergy (Verified 11/12/16 16:40) Past Medical History - Social History Chew tobacco use (# tins/day): No Frequency of alcohol use: None Drug Abuse: None Family history: None - Past Medical History Cardiac Medical History: Reports: Hx Hypertension Denies: Hx Coronary Artery Disease, Hx Heart Attack Pulmonary Medical History: Reports: Hx Asthma, Hx Bronchitis Denies: Hx COPD, Hx Pneumonia Neurological Medical History: Denies: Hx Cerebrovascular Accident, Hx Seizures Endocrine Medical History: Reports: Hx Diabetes Mellitus Type 2 - Diet controlled Renal/ Medical History: Denies: Hx Peritoneal Dialysis Musculoskeltal Medical History: Denies Hx Arthritis Skin Medical History: Reports Hx Cellulitis Psychiatric Medical History: Reports: Hx Depression Past Surgical History: Reports: Hx Section, Hx Cholecystectomy, Hx Orthopedic Surgery - foot, Hx Vascular Surgery - umbilical hernia - Immunizations Hx Diphtheria, Pertussis, Tetanus Vaccination: Yes Physical Exam - Vital signs Vitals: Temp Pulse Resp BP Pulse Ox 98.8 F 115 H 22 H 168/89 H 93 11/12/16 16:40 11/12/16 16:40 11/12/16 16:40 11/12/16 16:40 11/12/16 16:40 Course - Vital Signs Vital signs: Temp Pulse Resp BP Pulse Ox 98.8 F 115 H 22 H 168/89 H 93 11/12/16 16:40 11/12/16 16:40 11/12/16 16:40 11/12/16 16:40 11/12/16 16:40
[2016-11-12 18:44] LABS: ABSOLUTE BASOPHILS # (AUTO) 0.1 10^3/uL (0.0-0.2); ABSOLUTE EOSINOPHILS # (AUTO) 0.5 10^3/uL (0.0-0.6); ABSOLUTE LYMPHOCYTES (AUTO) 2.4 10^3/uL (0.5-4.7); ABSOLUTE MONOCYTES (AUTO) 0.5 10^3/uL (0.1-1.4); ABSOLUTE NEUT (AUTO) 5.9 10^3/uL (1.7-8.2); BASOPHILS % (AUTO) 0.6 % (0-2); EOSINOPHILS % (AUTO) 5.7 % (0-6); HEMATOCRIT 36.3 % (36.0-47.0); HEMOGLOBIN 11.6 g/dL (12.0-15.5); HGB HCT DIFFERENCE -1.5; LYMPHOCYTES % (AUTO) 25.5 % (13-45); MEAN CORPUSCULAR HEMOGLOBIN 25.7 pg (27.0-33.4); MEAN CORPUSCULAR HGB CONC 31.8 g/dL (32.0-36.0); MEAN CORPUSCULAR VOLUME 81 fl (80-97); RED BLOOD COUNT 4.49 10^6/uL (3.72-5.28); RED CELL DISTRIBUTION WIDTH 17.7 % (11.5-14.0); SEGMENTED NEUTROPHILS % (AUTO) 63.2 % (42-78); WHITE BLOOD COUNT 9.4 10^3/uL (4.0-10.5)
[2016-11-12 19:02] LABS: ANION GAP 12 (5-19); BLOOD UREA NITROGEN 17 mg/dL (7-20); CALCIUM 8.9 mg/dL (8.4-10.2); CARBON DIOXIDE 31 mmol/L (22-30); CHLORIDE 99 mmol/L (98-107); CREATININE RESULT 0.97 mg/dL (0.52-1.25); GLUCOSE 96 mg/dL (75-110); POTASSIUM 4.6 mmol/L (3.6-5.0); SODIUM 141.9 mmol/L (137-145)
--- NOTE | 2016-11-12 20:43 | ER Document Report ---
ED Skin Rash/Insect Bite/Abscs - General Chief Complaint: Skin Problem Stated Complaint: SKIN PROBLEM/ON STOMACH AND LEG Time Seen by Provider: 11/12/16 16:45 Mode of Arrival: Ambulatory Notes: Patient is a 56-year-old female that comes emergency department for chief complaint of cellulitis to her lower abdominal wall and on her left lower leg. She was admitted on 11/06/2016, discharged on 11/09/2016, she states that she specifically requested to go home when she started having improvement. She states that at home she has started to develop the cellulitis on her left leg which is new. Patient has had intermittent cellulitis for years now. She denies fever or chills, nausea or vomiting. She states she has been compliant with Bactrim. She is not a diabetic. She states her tetanus is not UTD within 5 years. Only other PMH is hernia repair, cholecystetcomy, orthopedic surgery. TRAVEL OUTSIDE OF THE [place] IN LAST 30 DAYS: No - Related Data Allergies/Adverse Reactions: adhesive Allergy (Verified 11/12/16 16:40) Cephalosporins Allergy (Verified 11/12/16 16:40) Iodine and Iodide Containing Produc Allergy (Verified 11/12/16 16:40) Past Medical History - General Information source: Patient - Social History Smoking Status: Never Smoker Chew tobacco use (# tins/day): No Frequency of alcohol use: None Drug Abuse: None Lives with: Alone Family History: Reviewed & Not Pertinent - Past Medical History Cardiac Medical History: Reports: Hx Hypertension Denies: Hx Coronary Artery Disease, Hx Heart Attack Pulmonary Medical History: Reports: Hx Asthma, Hx Bronchitis Denies: Hx COPD, Hx Pneumonia Neurological Medical History: Denies: Hx Cerebrovascular Accident, Hx Seizures Endocrine Medical History: Reports: Hx Diabetes Mellitus Type 2 - Diet controlled Renal/ Medical History: Denies: Hx Peritoneal Dialysis Musculoskeltal Medical History: Denies Hx Arthritis Skin Medical History: Reports Hx Cellulitis Psychiatric Medical History: Reports: Hx Depression Past Surgical History: Reports: Hx Section, Hx Cholecystectomy, Hx Orthopedic Surgery - foot, Hx Vascular Surgery - umbilical hernia - Immunizations Hx Diphtheria, Pertussis, Tetanus Vaccination: Yes Review of Systems - Review of Systems Constitutional: No symptoms reported EENT: No symptoms reported Cardiovascular: No symptoms reported Respiratory: No symptoms reported Gastrointestinal: No symptoms reported Genitourinary: No symptoms reported Female Genitourinary: No symptoms reported Musculoskeletal: No symptoms reported Skin: See HPI Hematologic/Lymphatic: No symptoms reported Neurological/Psychological: No symptoms reported Physical Exam - Vital signs Vitals: Temp Pulse Resp BP Pulse Ox 98.8 F 115 H 22 H 168/89 H 93 11/12/16 16:40 11/12/16 16:40 11/12/16 16:40 11/12/16 16:40 11/12/16 16:40 Interpretation: Normal - General General appearance: Appears well, Alert In distress: None - HEENT Head: Normocephalic, Atraumatic Eyes: Normal Pupils: PERRL - Respiratory Respiratory status: No respiratory distress Chest status: Nontender Breath sounds: Normal Chest palpation: Normal - Cardiovascular Rhythm: Regular Heart sounds: Normal auscultation Murmur: No - Abdominal Inspection: Other - Lower abdomen with mild warmth and some erythema. No induration, fluctuance, or open wounds. No significant tenderness over the area. There are multiple areas of excoriations and scabs. Distension: No distension Bowel sounds: Normal Tenderness: Nontender Organomegaly: No organomegaly - Back Back: Normal, Nontender - Extremities General upper extremity: Other - Left anterior lower leg with mild warmth and erythema, no induration, fluctuance. There are scattered scabs over the lower extremity skin. No other abnormality noted of the lower extremity. General lower extremity: Normal inspection, Nontender, Normal color, Normal ROM , Normal temperature, Normal weight bearing. No: Beth's sign - Neurological Neuro grossly intact: Yes Cognition: Normal Orientation: AAOx4 [place] Coma Scale Eye Opening: Spontaneous Max Coma Scale Verbal: Oriented [place] Coma Scale Motor: Obeys Commands Max Coma Scale Total: 15 Speech: Normal Motor strength normal: LUE, RUE, LLE, RLE Sensory: Normal - Psychological Associated symptoms: Normal affect, Normal mood - Skin Skin Temperature: Warm Skin Moisture: Dry Skin Color: Normal Course - Re-evaluation Re-evalutation: Patient is a morbidly obese female with some warmth and erythema to the lower abdomen and also to the distal left anterior leg, there are multiple sites of excoriations and multiple picked areas with scabs in the areas of cellulitis. Patient admits that she scratches these areas all the time. She states she does not understand why she used to be able to scratch these and it would heal but now it will not. Areas that are not scratched do not show cellulitis. Patient afebrile, relaxed, talkative, well-appearing. No leukocytosis, no tachycardia on repeat of vital signs. I did discuss patient with hospitalist, Dr. Prescott. He states he does not believe patient meets admission criteria at this time, he recommends patient have altered regimen with primary care follow- up and return precautions. I discussed this with patient, she states she would be comfortable being at home. Patient will be given doxycycline in addition to her back, I recommended elevation of the foot, reexamination within 2 days, and return precautions if anything worsens in any way including spreading redness, fever, etc. Patient states understanding and agreement. - Vital Signs Vital signs: Temp Pulse Resp BP Pulse Ox 97.9 F 95 19 142/83 H 93 11/12/16 22:10 11/12/16 22:10 11/12/16 22:10 11/12/16 22:10 11/12/16 22:10 - Laboratory Result Diagrams: 11/12/16 18:30 11/12/16 18:30 Laboratory results interpreted by me: 11/12/16 11/12/16 11/12/16 18:30 18:30 18:30 Hgb 11.6 L MCH 25.7 L MCHC 31.8 L RDW 17.7 H PT 23.9 H Carbon Dioxide 31 H Discharge - Discharge Clinical Impression: Cellulitis Qualifiers: Site of cellulitis: unspecified site Qualified Code(s): L03.90 - Cellulitis, unspecified Condition: Stable Disposition: HOME, SELF-CARE Additional Instructions: Take the doxycycline antibiotic along with your Bactrim. Stop scratching, apply topical antibiotic to any areas of open skin which were previously scratched. Follow-up with your provider within the next 2 days for a recheck. Return immediately to the emergency department for any concerning or worsening symptoms including spreading redness, fever, or any other concerning symptoms. Prescriptions: Doxycycline Hyclate 100 mg PO BID #14 capsule Forms: Return to Work
[2016-11-12 21:19] LABS: PROTHROMBIN TIME 23.9 SEC (11.4-15.4)
[2016-11-12] MEDS ORDERED: VANCOMYCIN HCL INJ 1000 MG VIAL IV ONE (21:51)
[2016-11-12] MEDS ORDERED: DOXYCYCLINE HYCLATE 100 MG TABLET PO ONE (21:57)
[2016-11-12 22:16] VITALS: BP 142/83
== END 2016-11-12 22:16 | disposition home or self-care (01) ==
LOC: ER 16:36
DX: L03.90 Cellulitis, unspecified (principal); L98.9 Disorder of the skin and subcutaneous tissue, unspecified; R10.30 Lower abdominal pain, unspecified
CPT/HCPCS: 99283; 36415; 87040; 85025; 85610; 80048; J3490

== ENCOUNTER → 2017-01-22 | Outpatient (CLI) | payer MEDICAID ==
[2017-01-22 17:59] LABS: PROTHROMBIN TIME 30.5 SEC (11.4-15.4)
== END ==
LOC: OD 16:42
PROVIDERS: ATTEND Physician Assistant
DX: Z86.711 Personal history of pulmonary embolism (principal)
CPT/HCPCS: 36415; 85610

== ENCOUNTER 2017-01-29 20:23 | Emergency (ER) | payer MEDICAID ==
--- NOTE | 2017-01-29 21:29 | ER Document Report ---
ED Extremity Problem, Lower - General Chief Complaint: Wound Infection Stated Complaint: RIGHT ANKLE PAIN, FEVER Time Seen by Provider: 01/29/17 21:13 Notes: Patient is a 56-year-old female comes emergency department for chief complaint of spreading redness and drainage from her right lower extremity, she states that she had no injury but there appears to be an ulcer and there are multiple weeping areas from the leg she states that she has had cellulitis of the right lower extremity in the past, she states over the past 2 days she has been feeling like she has been running fevers as well. She denies a history of diabetes, she does have a history of DVT, she is on Coumadin for this, she states that a couple of days ago she was therapeutic. She states she is also taking doxycycline antibiotic already, has been doing so for over 2 weeks. She denies any other symptoms including shortness of breath, nausea or vomiting. TRAVEL OUTSIDE OF THE [place] IN LAST 30 DAYS: No - Related Data Allergies/Adverse Reactions: adhesive Allergy (Verified 11/12/16 16:40) Cephalosporins Allergy (Verified 11/12/16 16:40) Iodine and Iodide Containing Produc Allergy (Verified 11/12/16 16:40) Past Medical History - General Information source: Patient - Social History Smoking Status: Never Smoker Frequency of alcohol use: None Drug Abuse: None Lives with: Family Family History: Reviewed & Not Pertinent - Past Medical History Cardiac Medical History: Reports: Hx Hypertension Denies: Hx Coronary Artery Disease, Hx Heart Attack Pulmonary Medical History: Reports: Hx Asthma, Hx Bronchitis Denies: Hx COPD, Hx Pneumonia Neurological Medical History: Denies: Hx Cerebrovascular Accident, Hx Seizures Endocrine Medical History: Reports: Hx Diabetes Mellitus Type 2 - Diet controlled Renal/ Medical History: Denies: Hx Peritoneal Dialysis Musculoskeltal Medical History: Denies Hx Arthritis Skin Medical History: Reports Hx Cellulitis Psychiatric Medical History: Reports: Hx Depression Past Surgical History: Reports: Hx Section, Hx Cholecystectomy, Hx Orthopedic Surgery - foot, Hx Vascular Surgery - umbilical hernia - Immunizations Hx Diphtheria, Pertussis, Tetanus Vaccination: Yes Review of Systems - Review of Systems Constitutional: See HPI EENT: No symptoms reported Cardiovascular: No symptoms reported Respiratory: No symptoms reported Gastrointestinal: No symptoms reported Genitourinary: No symptoms reported Female Genitourinary: No symptoms reported Musculoskeletal: See HPI Skin: See HPI Hematologic/Lymphatic: No symptoms reported Neurological/Psychological: No symptoms reported Physical Exam - Vital signs Vitals: Temp Pulse Resp BP Pulse Ox 98.2 F 106 H 16 151/91 H 96 01/29/17 20:55 01/29/17 20:55 01/29/17 20:55 01/29/17 20:55 01/29/17 20:55 Interpretation: Normal - General General appearance: Appears well In distress: None - Patient is alert, smiling, talkative, well-appearing, morbidly obese - HEENT Head: Normocephalic, Atraumatic Eyes: Normal Conjunctiva: Normal Extraocular movements intact: Yes Eyelashes: Normal Pupils: PERRL Nasal: Normal Mouth/Lips: Normal Mucous membranes: Normal Pharynx: Normal Neck: Normal - Respiratory Respiratory status: No respiratory distress Chest status: Nontender Breath sounds: Normal. No: Decreased air movement, Wheezing Chest palpation: Normal - Cardiovascular Rhythm: Regular. No: Tachycardia - No tachycardia on my exam Heart sounds: Normal auscultation, S1 appreciated, S2 appreciated Murmur: No - Abdominal Inspection: Normal Distension: No distension Bowel sounds: Normal Tenderness: Nontender. No: Tender, Guarding Organomegaly: No organomegaly - Back Back: Normal, Nontender. No: Tender - Extremities General upper extremity: Normal inspection, Nontender, Normal color, Normal ROM , Normal temperature General lower extremity: Other - Bilateral lower extremity edema, right lower extremity with a small oval-shaped opening over the lateral distal leg, no purulent drainage, there is surrounding erythema extending down to the dorsal foot and up towards below the knee, there is weeping fluid from a couple of areas which is clear, there is no induration or fluctuance, good distal pulse and sensation, normal range of motion of the ankle and knee, normal lower extremity exam otherwise. - Neurological Neuro grossly intact: Yes Cognition: Normal Orientation: AAOx4 [place] Coma Scale Eye Opening: Spontaneous Max Coma Scale Verbal: Oriented Max Coma Scale Motor: Obeys Commands [place] Coma Scale Total: 15 Speech: Normal Motor strength normal: LUE, RUE, LLE, RLE Sensory: Normal - Psychological Associated symptoms: Normal affect, Normal mood - Skin Skin Temperature: Warm Skin Moisture: Dry Skin Color: Normal Course - Re-evaluation Re-evalutation: Patient afebrile, no tachycardia on repeat check, well-appearing, no fever, no leukocytosis, no purulent drainage. There is evidence of lower extremity cellulitis which patient has had many times. She actually is on clindamycin instead of doxycycline as originally reported. Patient is not a diabetic, has no evidence of sepsis, exam consistent with recurrent lower extremity cellulitis. Discussed with Dr. Armstrong, recommends outpatient management with better MRSA/ staph coverage. Borders of erythema marked. Patient will be taken off the clindamycin, placed on Augmentin and Bactrim after discussion with patient, discussed wound care, follow-up, return precautions in detail, patient states understanding and agreement. - Vital Signs Vital signs: Temp Pulse Resp BP Pulse Ox 98.6 F 99 18 141/81 H 98 01/29/17 22:21 01/29/17 22:21 01/29/17 22:21 01/29/17 22:21 01/29/17 22:21 - Laboratory Result Diagrams: 01/29/17 21:30 01/29/17 21:30 Laboratory results interpreted by me: 01/29/17 01/29/17 01/29/17 21:30 21:30 21:30 Hgb 11.0 L Hct 33.4 L MCH 26.9 L RDW 16.3 H PT 33.6 H Carbon Dioxide 31 H AST 45 H Discharge - Discharge Clinical Impression: Cellulitis of right lower extremity Condition: Stable Disposition: HOME, SELF-CARE Additional Instructions: Your examination shows lymphedema (fluid buildup) and cellulitis of the lower extremity, recommendation is to elevate your leg, stop taking the clindamycin, take the Bactrim and Augmentin antibiotics as prescribed, follow-up with your primary care provider, and return if he develop any concerning or worsening symptoms including increasing spreading of redness, discolored drainage, fever of 100.4 or greater, or any other concerning symptoms. Prescriptions: Amox Tr/Potassium Clavulanate [Augmentin 875-125 Tablet] 1 tab PO BID 7 Days tablet Sulfamethoxazole/Trimethoprim [Bactrim Ds Tablet] 1 each PO BID #14 tablet Forms: Return to Work Referrals: MARILY ALFONSO PA-C [Primary Care Provider] - Follow up as needed
[2017-01-29 21:46] LABS: ABSOLUTE BASOPHILS # (AUTO) 0.1 10^3/uL (0.0-0.2); ABSOLUTE EOSINOPHILS # (AUTO) 0.3 10^3/uL (0.0-0.6); ABSOLUTE LYMPHOCYTES (AUTO) 2.7 10^3/uL (0.5-4.7); ABSOLUTE MONOCYTES (AUTO) 0.5 10^3/uL (0.1-1.4); BASOPHILS % (AUTO) 0.7 % (0-2); EOSINOPHILS % (AUTO) 3.5 % (0-6); HEMATOCRIT 33.4 % (36.0-47.0); HGB HCT DIFFERENCE -0.4; MEAN CORPUSCULAR HEMOGLOBIN 26.9 pg (27.0-33.4); MEAN CORPUSCULAR HGB CONC 32.9 g/dL (32.0-36.0); MEAN CORPUSCULAR VOLUME 82 fl (80-97); MONOCYTES % (AUTO) 7.2 % (3-13); RED BLOOD COUNT 4.07 10^6/uL (3.72-5.28); RED CELL DISTRIBUTION WIDTH 16.3 % (11.5-14.0); SEGMENTED NEUTROPHILS % (AUTO) 52.6 % (42-78); WHITE BLOOD COUNT 7.6 10^3/uL (4.0-10.5)
[2017-01-29 21:55] LABS: PROTHROMBIN TIME 33.6 SEC (11.4-15.4)
[2017-01-29 22:02] LABS: ALANINE AMINOTRANSFERASE 38 U/L (9-52); ALBUMIN 3.7 g/dL (3.5-5.0); ALKALINE PHOSPHATASE 104 U/L (38-126); ANION GAP 12 (5-19); ASPARTATE AMINO TRANSFERASE 45 U/L (14-36); BILIRUBIN,DIRECT 0.4 mg/dL (0.0-0.4); BILIRUBIN,TOTAL 0.5 mg/dL (0.2-1.3); BLOOD UREA NITROGEN 20 mg/dL (7-20); CALCIUM 8.7 mg/dL (8.4-10.2); CARBON DIOXIDE 31 mmol/L (22-30); CHLORIDE 100 mmol/L (98-107); CREATININE RESULT 0.94 mg/dL (0.52-1.25); GLUCOSE 105 mg/dL (75-110); POTASSIUM 4.3 mmol/L (3.6-5.0); SODIUM 143.4 mmol/L (137-145); TOTAL PROTEIN 7.9 g/dL (6.3-8.2)
[2017-01-29 22:40] VITALS: BP 141/81
[2017-01-29] MEDS ORDERED: AMOXICILLIN TR/POT CLAVULANATE 500-125 MG TAB PO ONE (23:19)
[2017-01-29] MEDS ORDERED: SULFAMETHOXAZOLE/TRIMETHOPRIM 800-160 MG TABLET PO ONE (23:19)
[2017-01-29] MEDS ORDERED: HYDROCODONE/ACETAMINOPHEN 5-325 MG 6 TAB/DSPK PO PRN (23:20)
== END 2017-01-29 23:55 | disposition home or self-care (01) ==
LOC: ER 20:23
DX: L03.115 Cellulitis of right lower limb (principal); R60.0 Localized edema; I10 Essential (primary) hypertension; J45.909 Unspecified asthma, uncomplicated; E66.01 Morbid (severe) obesity due to excess calories; Z68.44 Body mass index [BMI] 60.0-69.9, adult; I82.409 Acute embolism and thrombosis of unspecified deep veins of unspecified lower extremity; Z79.01 Long term (current) use of anticoagulants; Z91.048 Other nonmedicinal substance allergy status; Z88.1 Allergy status to other antibiotic agents; Z88.3 Allergy status to other anti-infective agents
CPT/HCPCS: 99283; 36415; 85025; 85610; 80053; J3490 ×2

== ENCOUNTER → 2017-03-24 | Outpatient (CLI) | payer MEDICAID ==
[2017-03-24 18:01] LABS: PROTHROMBIN TIME 26.3 SEC (11.4-15.4)
== END ==
LOC: OD 16:36
PROVIDERS: ATTEND Physician Assistant
DX: Z86.711 Personal history of pulmonary embolism (principal)
CPT/HCPCS: 36415; 85610

== ENCOUNTER 2017-05-28 13:48 | Emergency (ER) | payer MEDICAID ==
[2017-05-28 17:13] LABS: ABSOLUTE EOSINOPHILS # (AUTO) 0.3 10^3/uL (0.0-0.6); ABSOLUTE LYMPHOCYTES (AUTO) 1.2 10^3/uL (0.5-4.7); ABSOLUTE MONOCYTES (AUTO) 0.4 10^3/uL (0.1-1.4); ABSOLUTE NEUT (AUTO) 3.4 10^3/uL (1.7-8.2); BASOPHILS % (AUTO) 0.8 % (0-2); EOSINOPHILS % (AUTO) 6.1 % (0-6); HEMATOCRIT 31.1 % (36.0-47.0); HEMOGLOBIN 9.7 g/dL (12.0-15.5); LYMPHOCYTES % (AUTO) 22.7 % (13-45); MEAN CORPUSCULAR HEMOGLOBIN 25.1 pg (27.0-33.4); MEAN CORPUSCULAR HGB CONC 31.3 g/dL (32.0-36.0); MEAN CORPUSCULAR VOLUME 80 fl (80-97); MONOCYTES % (AUTO) 7.9 % (3-13); PLATELET COUNT 323 10^3/uL (150-450); RED BLOOD COUNT 3.87 10^6/uL (3.72-5.28); RED CELL DISTRIBUTION WIDTH 16.6 % (11.5-14.0); SEGMENTED NEUTROPHILS % (AUTO) 62.5 % (42-78); TOTAL CELLS COUNTED % (AUTO) 100 %; WHITE BLOOD COUNT 5.5 10^3/uL (4.0-10.5)
[2017-05-28 17:20] LABS: APPEARANCE,URINE SLIGHTLY-CLOUDY; BILIRUBIN,URINE NEGATIVE (NEGATIVE); COLOR,URINE YELLOW; GLUCOSE, URINE NEGATIVE (NEGATIVE); KETONES,URINE NEGATIVE (NEGATIVE); LEUKOCYTE ESTERASE,URINE NEGATIVE (NEGATIVE); NITRITE,URINE NEGATIVE (NEGATIVE); PROTEIN,URINE NEGATIVE (NEGATIVE); URINE SPECIFIC GRAVITY 1.008; UROBILINOGEN,URINE NEGATIVE mg/dL (<2.0)
[2017-05-28 17:40] LABS: ALANINE AMINOTRANSFERASE 29 U/L (9-52); ALBUMIN 3.4 g/dL (3.5-5.0); ALKALINE PHOSPHATASE 80 U/L (38-126); ANION GAP 7 (5-19); ASPARTATE AMINO TRANSFERASE 21 U/L (14-36); BILIRUBIN,DIRECT 0.4 mg/dL (0.0-0.4); BILIRUBIN,TOTAL 0.5 mg/dL (0.2-1.3); BLOOD UREA NITROGEN 12 mg/dL (7-20); CALCIUM 9.3 mg/dL (8.4-10.2); CARBON DIOXIDE 34 mmol/L (22-30); CHLORIDE 99 mmol/L (98-107); GLUCOSE 88 mg/dL (75-110); POTASSIUM 4.3 mmol/L (3.6-5.0); SODIUM 140.2 mmol/L (137-145); TOTAL PROTEIN 7.3 g/dL (6.3-8.2)
--- NOTE | 2017-05-28 18:03 | ER Document Report ---
ED Skin Rash/Insect Bite/Abscs - General Chief Complaint: Skin Problem Stated Complaint: SKIN CONCERN Time Seen by Provider: 05/28/17 15:40 Mode of Arrival: Medic Information source: Patient Notes: Patient is a 57-year-old female who presents to the ER today for cellulitis to her abdomen/pannus. Patient states that she has been on clindamycin for 2 weeks and just started Bactrim 2 days ago by her primary care provider. Patient states that she came into the ER today for the same issue, and states that it is all over her abdomen. She denies any fevers or chills, nausea, vomiting, diarrhea. TRAVEL OUTSIDE OF THE [place] IN LAST 30 DAYS: No - Related Data Allergies/Adverse Reactions: adhesive Allergy (Verified 05/28/17 13:50) Cephalosporins Allergy (Verified 05/28/17 13:50) Iodine and Iodide Containing Produc Allergy (Verified 05/28/17 13:50) sulfamethoxazole [From Bactrim] Allergy (Verified 05/28/17 13:50) trimethoprim [From Bactrim] Allergy (Verified 05/28/17 13:50) Past Medical History - General Information source: Patient - Social History Smoking Status: Never Smoker Chew tobacco use (# tins/day): No Frequency of alcohol use: None Drug Abuse: None Family History: Hypertension Patient has suicidal ideation: No Patient has homicidal ideation: No - Past Medical History Cardiac Medical History: Reports: Hx Hypertension Denies: Hx Coronary Artery Disease, Hx Heart Attack Pulmonary Medical History: Reports: Hx Asthma, Hx Bronchitis Denies: Hx COPD, Hx Pneumonia Neurological Medical History: Denies: Hx Cerebrovascular Accident, Hx Seizures Endocrine Medical History: Reports: Hx Diabetes Mellitus Type 2 - Diet controlled Renal/ Medical History: Denies: Hx Peritoneal Dialysis Musculoskeltal Medical History: Denies Hx Arthritis Skin Medical History: Reports Hx Cellulitis Psychiatric Medical History: Reports: Hx Depression Past Surgical History: Reports: Hx Section, Hx Cholecystectomy, Hx Orthopedic Surgery - foot, Hx Vascular Surgery - umbilical hernia - Immunizations Hx Diphtheria, Pertussis, Tetanus Vaccination: Yes Review of Systems - Review of Systems Constitutional: No symptoms reported EENT: No symptoms reported Cardiovascular: No symptoms reported Respiratory: No symptoms reported Gastrointestinal: No symptoms reported Genitourinary: No symptoms reported Female Genitourinary: No symptoms reported Musculoskeletal: No symptoms reported Skin: See HPI Hematologic/Lymphatic: No symptoms reported Neurological/Psychological: No symptoms reported Physical Exam - Vital signs Vitals: Temp Pulse Resp BP Pulse Ox 99.5 F 109 H 18 122/61 90 L 05/28/17 13:55 05/28/17 13:55 05/28/17 13:55 05/28/17 13:55 05/28/17 13:55 - Notes Notes: PHYSICAL EXAMINATION: GENERAL: Morbidly obese, but in no acute distress. HEAD: Atraumatic, normocephalic. EYES: Pupils equal round and reactive to light, extraocular movements intact, sclera anicteric, conjunctiva are normal. NECK: Normal range of motion, supple without lymphadenopathy LUNGS: CTAB and equal. No wheezes rales or rhonchi. HEART: Regular rate and rhythm without murmurs ABDOMEN: Large pannus, soft, no tenderness. No guarding, no rebound BACK: no vertebral tenderness, normal ROM GI/: no CVA tenderness EXTREMITIES: Normal range of motion, no pitting edema. No cyanosis. NEUROLOGICAL: Cranial nerves grossly intact. Normal sensory/motor exams. PSYCH: Normal mood, normal affect. SKIN: Warm, Dry, normal turgor, minimal erythema to lower pannus Course - Re-evaluation Re-evalutation: 05/28/17 18:08 It is difficult to appreciate any erythema to the pannus, possibly see some very minimal erythema, patient got started on Bactrim 2 days ago and her white count today is completely normal. I advised that she continue the Bactrim and follow up with her primary care provider. She is afebrile with normal vital signs today. - Vital Signs Vital signs: Temp Pulse Resp BP Pulse Ox 99.5 F 109 H 18 122/61 90 L 05/28/17 13:55 05/28/17 13:55 05/28/17 13:55 05/28/17 13:55 05/28/17 13:55 - Laboratory Result Diagrams: 05/28/17 16:54 05/28/17 16:54 Laboratory results interpreted by me: 05/28/17 05/28/17 05/28/17 16:54 16:54 16:54 Hgb 9.7 L Hct 31.1 L MCH 25.1 L MCHC 31.3 L RDW 16.6 H Eosinophils % 6.1 H Carbon Dioxide 34 H Albumin 3.4 L Urine Blood SMALL H Discharge - Discharge Clinical Impression: Abdominal wall cellulitis Condition: Stable Disposition: HOME, SELF-CARE Additional Instructions: Return immediately for any new or worsening symptoms. Follow up with primary care provider, call tomorrow to make followup appointment. Referrals: MARILY ALFONSO PA-C [Primary Care Provider] - Follow up as needed
[2017-05-28 18:31] VITALS: BP 136/68
== END 2017-05-28 18:29 | disposition home or self-care (01) ==
LOC: ER 13:48
DX: L03.311 Cellulitis of abdominal wall (principal)
CPT/HCPCS: 36415; 80053; 81001; 85025; 99283

== ENCOUNTER 2017-07-06 13:27 | Inpatient (IN) | payer MEDICAID ==
[2017-07-06] MEDS ORDERED: VANCOMYCIN HCL INJ 1000 MG VIAL IV ONE (14:22)
--- NOTE | 2017-07-06 14:24 | ER Document Report ---
ED Medical Screen (RME) - General Chief Complaint: Leg Pain Stated Complaint: LEG PAIN Time Seen by Provider: 07/06/17 14:17 Notes: RME DISCLOSURE I have seen this patient as part of a Rapid Medical Evaluation and, if applicable, placed any initially appropriate orders. The patient will be seen and fully evaluated, including a full history and physical exam, by a provider ( in Main ED or Fast Track) when a room becomes available. 57-year-old female PMH chronic leg wound here with complaints of worsening cellulitis and increasing size of her right leg wound over the past 1 week. She has been taking to outpatient antibiotics which have not prevented the increase and worsening of symptoms. She states her wound clinic doctor would like her to be admitted for IV antibiotics. EXAM Tachycardic TRAVEL OUTSIDE OF THE [place] IN LAST 30 DAYS: No - Related Data Allergies/Adverse Reactions: adhesive Allergy (Verified 07/06/17 13:29) Cephalosporins Allergy (Verified 07/06/17 13:29) Iodine and Iodide Containing Produc Allergy (Verified 07/06/17 13:29) sulfamethoxazole [From Bactrim] Allergy (Verified 07/06/17 13:29) trimethoprim [From Bactrim] Allergy (Verified 07/06/17 13:29) Past Medical History - Social History Family history: None - Past Medical History Cardiac Medical History: Reports: Hx Hypertension Denies: Hx Coronary Artery Disease, Hx Heart Attack Pulmonary Medical History: Reports: Hx Asthma, Hx Bronchitis Denies: Hx COPD, Hx Pneumonia Neurological Medical History: Denies: Hx Cerebrovascular Accident, Hx Seizures Endocrine Medical History: Reports: Hx Diabetes Mellitus Type 2 - Diet controlled Renal/ Medical History: Denies: Hx Peritoneal Dialysis Musculoskeltal Medical History: Denies Hx Arthritis Skin Medical History: Reports Hx Cellulitis Psychiatric Medical History: Reports: Hx Depression Past Surgical History: Reports: Hx Section, Hx Cholecystectomy, Hx Orthopedic Surgery - foot, Hx Vascular Surgery - umbilical hernia - Immunizations Hx Diphtheria, Pertussis, Tetanus Vaccination: Yes History of Influenza Vaccine for 01/2017 - 06/2017 Season: Refused Physical Exam - Vital signs Vitals: Temp Pulse Resp BP Pulse Ox 98.3 F 117 H 26 H 157/81 H 94 07/06/17 13:35 07/06/17 13:35 07/06/17 13:35 07/06/17 13:35 07/06/17 13:35 Course - Vital Signs Vital signs: Temp Pulse Resp BP Pulse Ox 98.3 F 117 H 26 H 157/81 H 94 07/06/17 13:35 07/06/17 13:35 07/06/17 13:35 07/06/17 13:35 07/06/17 13:35
[2017-07-06 14:56] LABS: ABSOLUTE BASOPHILS # (AUTO) 0.1 10^3/uL (0.0-0.2); ABSOLUTE EOSINOPHILS # (AUTO) 0.3 10^3/uL (0.0-0.6); ABSOLUTE LYMPHOCYTES (AUTO) 1.8 10^3/uL (0.5-4.7); ABSOLUTE MONOCYTES (AUTO) 0.5 10^3/uL (0.1-1.4); ABSOLUTE NEUT (AUTO) 6.3 10^3/uL (1.7-8.2); BASOPHILS % (AUTO) 0.7 % (0-2); EOSINOPHILS % (AUTO) 3.1 % (0-6); HEMATOCRIT 32.4 % (36.0-47.0); HEMOGLOBIN 10.2 g/dL (12.0-15.5); LYMPHOCYTES % (AUTO) 19.8 % (13-45); MEAN CORPUSCULAR HEMOGLOBIN 24.9 pg (27.0-33.4); MEAN CORPUSCULAR HGB CONC 31.3 g/dL (32.0-36.0); MEAN CORPUSCULAR VOLUME 79 fl (80-97); MONOCYTES % (AUTO) 5.3 % (3-13); PLATELET COUNT 326 10^3/uL (150-450); RED BLOOD COUNT 4.09 10^6/uL (3.72-5.28); SEGMENTED NEUTROPHILS % (AUTO) 71.1 % (42-78); TOTAL CELLS COUNTED % (AUTO) 100 %; WHITE BLOOD COUNT 8.8 10^3/uL (4.0-10.5)
[2017-07-06 15:13] LABS: ANION GAP 5 (5-19); BLOOD UREA NITROGEN 14 mg/dL (7-20); CARBON DIOXIDE 38 mmol/L (22-30); CHLORIDE 100 mmol/L (98-107); GLUCOSE 85 mg/dL (75-110); POTASSIUM 4.4 mmol/L (3.6-5.0); SODIUM 143.1 mmol/L (137-145)
--- NOTE | 2017-07-06 15:18 | RADIOLOGY REPORT (SQ) ---
EXAM DESCRIPTION: TIBIA FIBULA RIGHT COMPLETED DATE/TIME: 07/06/2017 3:03 pm REASON FOR STUDY: R distal leg wound; eval gas or osteo findings COMPARISON: CT right leg 02/03/2017 NUMBER OF VIEWS: Two views. TECHNIQUE: Two radiographic images acquired of the right tibia and fibula to include the knee and an kle in at least one projection. LIMITATIONS: None. FINDINGS: MINERALIZATION: Normal. BONES: No acute fracture or obvious bony destructive changes seen. Arthritic changes seen at the kne e. SOFT TISSUES: Diffuse soft tissue swelling, with scattered calcification concerning for venous stasis . The soft tissue irregularity laterally of the distal leg concerning for ulceration. No other soft tissue air. OTHER: No other significant finding. IMPRESSION: No acute bony changes. Diffuse soft tissue swelling with scattered calcification concerning for venous stasis. TECHNICAL DOCUMENTATION: JOB ID: [id number] [employer]- All Rights Reserved Reading location - IP/workstation name: [facility]
[2017-07-06 15:32] LABS: ERYTHROCYTE SEDIMENTATION RATE 72 mm/hr (0-30)
--- NOTE | 2017-07-06 16:41 | ER Document Report ---
ED Extremity Problem, Lower - General Mode of Arrival: Wheelchair Information source: Patient TRAVEL OUTSIDE OF THE [place] IN LAST 30 DAYS: No <DEN COTTON - Last Filed: 07/06/17 18:13> <AYALA PAIGE - Last Filed: 07/12/17 07:03> - General Chief Complaint: Leg Pain Stated Complaint: LEG PAIN Time Seen by Provider: 07/06/17 14:17 Notes: Patient is a morbidly obese 57-year-old female that presents to the emergency department today with complaints of a wound to her right lower extremity. This wound is chronic in nature and has been present since January 2017. Patient states she has been followed by wound care for the last month and they advised her to come here for IV antibiotics today after measuring the surrounding erythema and having concern for the distance it has spread. Patient states she is mildly nauseated but denies any fevers, chills, cough, congestion, or vomiting. Patient denies a history of diabetes. (DEN COTTON) - Related Data Allergies/Adverse Reactions: adhesive Allergy (Verified 07/06/17 13:29) Cephalosporins Allergy (Verified 07/06/17 13:29) Iodine and Iodide Containing Produc Allergy (Verified 07/06/17 13:29) sulfamethoxazole [From Bactrim] Allergy (Verified 07/06/17 13:29) trimethoprim [From Bactrim] Allergy (Verified 07/06/17 13:29) Past Medical History - General Information source: Patient - Social History Smoking Status: Never Smoker Cigarette use (# per day): No Chew tobacco use (# tins/day): No Frequency of alcohol use: None Drug Abuse: None Lives with: Family Family History: Reviewed & Not Pertinent, Hypertension Patient has suicidal ideation: No Patient has homicidal ideation: No - Past Medical History Cardiac Medical History: Reports: Hx Hypertension Pulmonary Medical History: Reports: Hx Asthma, Hx Bronchitis Endocrine Medical History: Reports: Hx Diabetes Mellitus Type 2 - Diet controlled Skin Medical History: Reports Hx Cellulitis Psychiatric Medical History: Reports: Hx Depression Past Surgical History: Reports: Hx Section, Hx Cholecystectomy, Hx Orthopedic Surgery - foot, Hx Vascular Surgery - umbilical hernia - Immunizations Hx Diphtheria, Pertussis, Tetanus Vaccination: Yes <DEN COTTON - Last Filed: 07/06/17 18:13> Review of Systems - Review of Systems Constitutional: denies: Chills, Fever EENT: denies: Nose congestion Cardiovascular: No symptoms reported Respiratory: denies: Cough Gastrointestinal: See HPI, Nausea. denies: Vomiting Genitourinary: No symptoms reported Female Genitourinary: No symptoms reported Musculoskeletal: No symptoms reported Skin: See HPI, Other - RLE wound Hematologic/Lymphatic: No symptoms reported Neurological/Psychological: No symptoms reported -: Yes All other systems reviewed and negative <DEN COTTON - Last Filed: 07/06/17 18:13> Physical Exam <DEN COTTON - Last Filed: 07/06/17 18:13> <AYALA PAIGE - Last Filed: 07/12/17 07:03> - Vital signs Vitals: Temp Pulse Resp BP Pulse Ox 98.3 F 117 H 26 H 157/81 H 94 07/06/17 13:35 07/06/17 13:35 07/06/17 13:35 07/06/17 13:35 07/06/17 13:35 - Notes Notes: Physical Exam: General: Alert, morbidly obese. HEENT: Normocephalic. Atraumatic. PERRL. Extraocular movements intact. Oropharynx clear. Neck: Supple. Non-tender. Respiratory: No respiratory distress. Clear and equal breath sounds bilaterally. Cardiovascular: Regular rate and rhythm. Abdominal: Morbidly obese. Non-tender. No distension. Normal Bowel Sounds. Back: Non-tender. No deformity or step off. Extremities: Moves all four extremities. Upper extremities: Normal inspection. Normal ROM. Lower extremities: See skin exam. 1+ pitting edema bilaterally. Normal ROM. Neurological: Normal cognition. AAOx4. Normal speech. Psychological: Normal affect. Normal Mood. Skin: Stasis dermatitis to bilateral lower extremities. Large wound to right lower extremity with multiple centralized ulcerations with surrounding erythema consistent with cellulitis, area is hot to the touch. 2+ dorsalis pedis pulses. (DEN COTTON) Course - Laboratory Result Diagrams: 07/06/17 14:35 07/06/17 14:35 <DEN COTTON - Last Filed: 07/06/17 18:13> - Laboratory Result Diagrams: 07/10/17 06:39 07/10/17 06:39 <AYALA PAIGE - Last Filed: 07/12/17 07:03> - Re-evaluation Re-evalutation: 07/06/17 16:56 Called placed to hospitalist Lynne, waiting for call back. 07/06/17 17:01 Dr. Pink accepted admission (DEN COTTON) 07/06/17 17:43 Patient admitted by hospitalist wound and blood cultures drawn and vancomycin provided. (AYALA PAIGE) - Vital Signs Vital signs: Temp Pulse Resp BP Pulse Ox 98.1 F 97 20 122/79 90 L 07/12/17 03:58 07/12/17 03:58 07/12/17 03:58 07/12/17 05:20 07/12/17 03:58 - Laboratory Laboratory results interpreted by me: 07/06/17 07/06/17 07/06/17 14:35 14:35 14:35 Hgb 10.2 L Hct 32.4 L MCV 79 L MCH 24.9 L MCHC 31.3 L RDW 17.0 H ESR 72 H PT 16.0 H Carbon Dioxide 38 H Discharge <DEN COTTON - Last Filed: 07/06/17 18:13> - Discharge Admitting Provider: Lynne Unit Admitted: Medical Floor <AYALA PAIGE - Last Filed: 07/12/17 07:03> - Discharge Clinical Impression: Cellulitis Qualifiers: Site of cellulitis: extremity Site of cellulitis of extremity: lower extremity Laterality: right Qualified Code(s): L03.115 - Cellulitis of right lower limb Condition: Good Disposition: ADMITTED INPATIENT Scribe Attestation: 07/12/17 07:03 I personally performed the services described in the documentation, reviewed and edited the documentation which was dictated to the scribe in my presence, and it accurately records my words and actions. (AYALA PAIGE) Scribe Documentation - Scribe Written by Hilario:: Hilario Rivas, 07/06/2017 182 acting as scribe for :: Jonh <DEN COTTON - Last Filed: 07/06/17 18:13>
[2017-07-06] MEDS ORDERED: PROCHLORPERAZINE EDISYLATE INJ 10 MG/2 ML VIAL IV ONE (17:30)
[2017-07-06] MEDS ORDERED: OXYCODONE-ACETAMINOPHEN 5-325 MG TABLET PO ONE (17:31)
[2017-07-06] MEDS ORDERED: HYDROXYZINE PAMOATE 25 MG CAPSULE PO PRN (17:39)
[2017-07-06] MEDS ORDERED: MORPHINE SULFATE 10 MG/ML INJ IV ONE (17:55)
[2017-07-06] MEDS ORDERED: (PENDING PHARMACY ID) (Ammonium Lactate 1 APPLIC) TP SCH (18:00)
[2017-07-06] MEDS ORDERED: PIPERACILLIN/TAZOBACTAM 4.5 GM VIAL IV SCH (18:30)
--- NOTE | 2017-07-06 18:48 | PDOC H&P ---
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 She presented to the ER due to worsening pain, erythema and discharge of her R leg wounds despite oral outpatient antibiotics and wound care at the wound clinic. X-ray of the tibial and fibular showed diffuse soft tissue swelling with scattered calcification concerning for venous stasis no acute bony changes. The patient is complaining of a lot of right lower extremity pain. 2 mg of IV morphine was ordered by me and given in the ER. Past Medical History Cardiac Medical History: Reports: Hypertension Denies: Coronary Artery Disease, Myocardial Infarction Pulmonary Medical History: Reports: Asthma, Bronchitis Denies: Chronic Obstructive Pulmonary Disease (COPD), Pneumonia Neurological Medical History: Denies: Seizures Endocrine Medical History: Reports: None, Diabetes Mellitus Type 2 - Diet controlled Musculoskeltal Medical History: Denies: Arthritis Psychiatric Medical History: Reports: Depression Hematology: Denies: Anemia Past Surgical History Past Surgical History: Reports: Section, Cholecystectomy, Orthopedic Surgery - foot, Vascular Surgery - umbilical hernia Social History Information Source: Patient Smoking Status: Never Smoker Frequency of Alcohol Use: None Hx Recreational Drug Use: No Drugs: None Hx Prescription Drug Abuse: No Family History Family History: Hypertension Parental Family History Reviewed: Yes Children Family History Reviewed: Yes Sibling(s) Family History Reviewed.: Yes Medication/Allergy Home Medications: Ammonium Lactate [Lac-Hydrin 12% Lotion 225Gm/Bottle] 1 applic TP BID 02/02/17 Loratadine [Claritin 10 mg Tablet] 10 mg PO DAILY 02/02/17 Mupirocin [Bactroban 2% Ointment 22 gm] 1 applic TP BID 02/02/17 Nystatin [Mycostatin Topical Powder 15 gm] 1 applic TP BID 02/02/17 Hydroxyzine Pamoate [Vistaril 25 mg Capsule] 25 mg PO Q6HP PRN 30 Days #30 capsule 02/10/17 Warfarin Sodium [Coumadin 4 mg Tablet] 4 mg PO QHS #0 02/10/17 Allergies/Adverse Reactions: adhesive Allergy (Verified 07/06/17 13:29) Cephalosporins Allergy (Verified 07/06/17 13:29) Iodine and Iodide Containing Produc Allergy (Verified 07/06/17 13:29) sulfamethoxazole [From Bactrim] Allergy (Verified 07/06/17 13:29) trimethoprim [From Bactrim] Allergy (Verified 07/06/17 13:29) Review of Systems Constitutional: ABSENT: chills, fever(s) Nose, Mouth, and Throat: ABSENT: sore throat Respiratory: ABSENT: dyspnea Gastrointestinal: ABSENT: diarrhea, heartburn Genitourinary: ABSENT: dysuria Musculoskeletal: PRESENT: as per HPI Integumentary: PRESENT: other Neurological: ABSENT: focal weakness Psychiatric: ABSENT: depression Endocrine: ABSENT: heat intolerance Physical Exam Vital Signs: Temp Pulse Resp BP Pulse Ox 98.3 F 117 H 26 H 157/81 H 94 07/06/17 13:35 07/06/17 13:35 07/06/17 13:35 07/06/17 13:35 07/06/17 13:35 Intake & Output 07/05/17 07/06/17 07/07/17 06:59 06:59 06:59 Weight 198.7 kg General appearance: PRESENT: mild distress, morbidly obese Eye exam: PRESENT: EOMI Ear exam: PRESENT: normal external ear exam Respiratory exam: PRESENT: clear to auscultation tony, symmetrical, unlabored Cardiovascular exam: PRESENT: RRR GI/Abdominal exam: PRESENT: normal bowel sounds, soft Rectal exam: PRESENT: deferred Additional comments: Right lower leg erythema with an area of ulceration 5 cm x 3 cm with slough and purulence in the base. No fluctuance palpated. Results Laboratory Results: 07/06/17 14:35 07/06/17 14:35 07/06/17 07/06/17 14:35 14:35 WBC 8.8 RBC 4.09 Hgb 10.2 L Hct 32.4 L MCV 79 L MCH 24.9 L MCHC 31.3 L RDW 17.0 H Plt Count 326 Seg Neutrophils % 71.1 Lymphocytes % 19.8 Monocytes % 5.3 Eosinophils % 3.1 Basophils % 0.7 Absolute Neutrophils 6.3 Absolute Lymphocytes 1.8 Absolute Monocytes 0.5 Absolute Eosinophils 0.3 Absolute Basophils 0.1 Sodium 143.1 Potassium 4.4 Chloride 100 Carbon Dioxide 38 H Anion Gap 5 BUN 14 Creatinine 0.74 Est GFR ( Amer) > 60 Est GFR (Non-Af Amer) > 60 Glucose 85 Calcium 9.0 Impressions: Tibia/Fibula X-Ray 07/06/17 14:21 IMPRESSION: No acute bony changes. Diffuse soft tissue swelling with scattered calcification concerning for venous stasis. Assessment & Plan - Diagnosis (1) Cellulitis of right lower extremity Is this a current diagnosis for this admission?: Yes Plan: Started on clindamycin and Zosyn. Wound and blood cultures obtained. Analgesics as needed for pain. (2) History of DVT (deep vein thrombosis) Is this a current diagnosis for this admission?: No Plan: Continue Coumadin. Monitor INR. (3) Morbid obesity Is this a current diagnosis for this admission?: Yes - Time Time Spent: 50 to 70 Minutes - Inpatient Certification Medical Necessity: Failure to Improve With Outpatient Therapy, Need for Pain Control, Need for IV Antibiotics
[2017-07-06] MEDS ORDERED: INFLUENZA ADLT QUAD (36MOS+) 2017-18 VAC 0.5 ML SYR IM PRN (20:28)
[2017-07-06] MEDS ORDERED: PIPERACILLIN SODIUM/TAZOBACTAM 4.5 GM in NORMAL SALINE 100 ML IV SCH (21:00)
[2017-07-06] MEDS ORDERED: WARFARIN SODIUM 4 MG TABLET PO SCH (22:00)
[2017-07-06] MEDS ORDERED: CLINDAMYCIN 600 MG/D5W RTU 600 MG/50 ML RTUPB IV SCH (22:00)
[2017-07-06] MEDS: PIPERACILLIN SODIUM/TAZOBACTAM 4.5 GM in NORMAL SALINE 100 ML IV SCH (22:00)
[2017-07-06] MEDS ORDERED: MUPIROCIN 2% OINTMENT 22 GM TP SCH (22:00)
[2017-07-06] MEDS ORDERED: (PENDING PHARMACY ID) (Warfarin Sodium 4 MG) PO SCH (22:00)
[2017-07-06] MEDS: LACTOBACILLUS ACIDOPHILUS 250 MG TAB PO SCH (22:37)
[2017-07-06] MEDS: MORPHINE SULFATE 10 MG/ML INJ IV PRN (22:38)
[2017-07-06] MEDS: WARFARIN SODIUM 4 MG TABLET PO SCH (22:39)
[2017-07-06] MEDS ORDERED: COLLAGENASE CLOSTRIDIUM HIST. OINT 30 GM TP ONE (23:00)
[2017-07-06] MEDS ORDERED: CLINDAMYCIN 600 MG/D5W RTU 600 MG/50 ML RTUPB IV ONE (23:00)
[2017-07-06] MEDS ORDERED: COLLAGENASE CLOSTRIDIUM HIST. OINT 30 GM ONE (23:16)
[2017-07-07] MEDS: OXYCODONE-ACETAMINOPHEN 5-325 MG TABLET PO PRN ×3 (01:01→20:41)
[2017-07-07] MEDS: HEPARIN SOD (PORCINE) 5,000 UNIT/ML 1 ML SYRINGE SUBCUT SCH ×4 (01:58→22:16)
[2017-07-07] MEDS: AMMONIUM LACTATE 12% LOTION 225GM BOTTLE TP SCH ×3 (01:58→22:16)
[2017-07-07] MEDS: PIPERACILLIN SODIUM/TAZOBACTAM 4.5 GM in NORMAL SALINE 100 ML IV SCH ×4 (03:10→20:33)
[2017-07-07] MEDS: HYDROXYZINE PAMOATE 25 MG CAPSULE PO PRN ×2 (03:25→20:33)
[2017-07-07] MEDS: CLINDAMYCIN 600 MG/D5W RTU 600 MG/50 ML RTUPB IV SCH ×3 (05:40→22:10)
[2017-07-07] MEDS: MORPHINE SULFATE 10 MG/ML INJ IV PRN ×2 (05:48→16:30)
[2017-07-07 06:50] LABS: INTERNATIONAL RATION (INR) 1.21; PROTHROMBIN TIME 16.1 SEC (11.4-15.4)
[2017-07-07 07:03] LABS: ALANINE AMINOTRANSFERASE 72 U/L (9-52); ALBUMIN 3.2 g/dL (3.5-5.0); ALKALINE PHOSPHATASE 100 U/L (38-126); ANION GAP 5 (5-19); ASPARTATE AMINO TRANSFERASE 139 U/L (14-36); BILIRUBIN,DIRECT 0.5 mg/dL (0.0-0.4); BILIRUBIN,TOTAL 0.9 mg/dL (0.2-1.3); BLOOD UREA NITROGEN 13 mg/dL (7-20); CARBON DIOXIDE 36 mmol/L (22-30); CHLORIDE 99 mmol/L (98-107); GLUCOSE 106 mg/dL (75-110); POTASSIUM 4.5 mmol/L (3.6-5.0); SODIUM 139.6 mmol/L (137-145); TOTAL PROTEIN 6.9 g/dL (6.3-8.2)
[2017-07-07] MEDS ORDERED: ENOXAPARIN SODIUM INJ 40 MG/0.4 ML DISP.SYRIN SUBCUT SCH (10:00)
[2017-07-07] MEDS ORDERED: COLLAGENASE CLOSTRIDIUM HIST. OINT 30 GM TP SCH (10:00)
[2017-07-07] MEDS: LACTOBACILLUS ACIDOPHILUS 250 MG TAB PO SCH ×2 (10:11→22:10)
[2017-07-07] MEDS: LORATADINE 10 MG TABLET PO SCH (10:11)
--- NOTE | 2017-07-07 13:39 | RADIOLOGY REPORT (SQ) ---
EXAM DESCRIPTION: VENOUS UNILATERAL LOWER COMPLETED DATE/TIME: 07/07/2017 1:28 pm REASON FOR STUDY: pain and swelling of Right leg COMPARISON: None. TECHNIQUE: Dynamic and static velázquez scale and color images acquired of the right leg venous system. S elected spectral images acquired with additional compression and augmentation maneuvers. The contrala teral common femoral vein and saphenofemoral junction were also imaged. Images stored on PACS. LIMITATIONS: Body habitus. FINDINGS: COMMON FEMORAL: Normal phasicity, compression and augmentation. No visualized echogenic ma terial on velázquez scale. No defects on color images. FEMORAL: Normal compression and augmentation. No visualized echogenic material on velázquez scale. No defe cts on color images. POPLITEAL: Normal compression, augmentation. No visualized echogenic material on velázquez scale. No defec ts on color images. CALF VESSELS: Normal compression, augmentation. No visualized echogenic material on velázquez scale. No de fects on color images. GSV and SSV: Normal compression, augmentation. No visualized echogenic material on velázquez scale. No def ects on color images. ANY DEEP VENOUS INSUFFICIENCY: Not evaluated. ANY EVIDENCE OF POPLITEAL CYST: No. OTHER: No other significant finding. CONTRALATERAL COMMON FEMORAL VEIN AND SAPHENOFEMORAL JUNCTION: Normal phasicity, compression and augmentation. No visualized echogenic material on velázquez scale. No de fects on color images. IMPRESSION: NO EVIDENCE DVT OR SVT IN THE RIGHT LEG. TECHNICAL DOCUMENTATION: JOB ID: [id number] [employer]- All Rights Reserved Reading location - IP/workstation name: [email or web address]
--- NOTE | 2017-07-07 14:34 | EKG REPORT ---
SEVERITY:- BORDERLINE ECG - SINUS RHYTHM BORDERLINE PROLONGED QT INTERVAL : Confirmed by: Ervin Rubio MD 07-Jul-2017 14:34:23
[2017-07-07] MEDS: COLLAGENASE CLOSTRIDIUM HIST. OINT 30 GM TP SCH ×2 (15:49→20:08)
--- NOTE | 2017-07-07 16:05 | PDOC PROGRESS REPORT ---
Subjective Progress Note for:: 07/07/17 Subjective:: Feels better today. R leg is still swollen, but less red. Venous Doppler right lower extremity was negative for DVT. Reason For Visit: CELLULITIS FAILED OUTPATIENT ANTIBIOTICS Physical Exam Vital Signs: Temp Pulse Resp BP Pulse Ox 97.8 F 95 19 132/68 H 90 L 07/07/17 11:05 07/07/17 11:05 07/07/17 11:05 07/07/17 11:05 07/07/17 11:05 Intake & Output 07/06/17 07/07/17 07/08/17 06:59 06:59 06:59 Intake Total 300 Balance 300 Weight 198.7 kg 198.7 kg General appearance: PRESENT: no acute distress, morbidly obese Mouth exam: PRESENT: moist Neck exam: ABSENT: tracheal deviation Respiratory exam: PRESENT: clear to auscultation tony, symmetrical, unlabored. ABSENT: wheezes Cardiovascular exam: PRESENT: RRR GI/Abdominal exam: PRESENT: soft Additional comments: Right lower leg erythema improved, ulceration 5 cm x 3 cm with slough and purulence in the base. Results Laboratory Results: 07/07/17 06:23 07/07/17 07/07/17 06:23 06:23 Sodium 139.6 Potassium 4.5 Chloride 99 Carbon Dioxide 36 H Anion Gap 5 BUN 13 Creatinine 0.74 Est GFR ( Amer) > 60 Est GFR (Non-Af Amer) > 60 Glucose 106 Calcium 9.0 Magnesium 1.8 Total Bilirubin 0.9 AST 139 H ALT 72 H Alkaline Phosphatase 100 Total Protein 6.9 Albumin 3.2 L TSH 2.03 Impressions: Tibia/Fibula X-Ray 07/06/17 14:21 IMPRESSION: No acute bony changes. Diffuse soft tissue swelling with scattered calcification concerning for venous stasis. Venous Doppler Study 07/07/17 00:00 IMPRESSION: NO EVIDENCE DVT OR SVT IN THE RIGHT LEG. Assessment & Plan - Diagnosis (1) Cellulitis of right lower extremity Is this a current diagnosis for this admission?: Yes Plan: Day 2 clindamycin and Zosyn. Follow-up on wound and blood cultures. Analgesics as needed for pain. Continue wound care. (2) History of DVT (deep vein thrombosis) Is this a current diagnosis for this admission?: No Plan: Continue Coumadin. Monitor INR. (3) Morbid obesity Is this a current diagnosis for this admission?: Yes - Time Time Spent with patient: 25-34 minutes
[2017-07-07] MEDS: WARFARIN SODIUM 4 MG TABLET PO SCH (22:10)
[2017-07-08] MEDS: MORPHINE SULFATE 10 MG/ML INJ IV PRN ×3 (02:09→22:57)
[2017-07-08] MEDS: PIPERACILLIN SODIUM/TAZOBACTAM 4.5 GM in NORMAL SALINE 100 ML IV SCH ×2 (02:09→10:16)
[2017-07-08] MEDS: HYDROXYZINE PAMOATE 25 MG CAPSULE PO PRN ×3 (04:24→23:05)
[2017-07-08] MEDS: OXYCODONE-ACETAMINOPHEN 5-325 MG TABLET PO PRN ×2 (04:24→19:28)
[2017-07-08] MEDS: CLINDAMYCIN 600 MG/D5W RTU 600 MG/50 ML RTUPB IV SCH (05:59)
[2017-07-08] MEDS: HEPARIN SOD (PORCINE) 5,000 UNIT/ML 1 ML SYRINGE SUBCUT SCH ×3 (06:03→22:36)
[2017-07-08] MEDS: LORATADINE 10 MG TABLET PO SCH (10:15)
[2017-07-08] MEDS: LACTOBACILLUS ACIDOPHILUS 250 MG TAB PO SCH ×2 (10:15→22:35)
[2017-07-08] MEDS: AMMONIUM LACTATE 12% LOTION 225GM BOTTLE TP SCH ×2 (10:17→22:36)
--- NOTE | 2017-07-08 11:32 | PDOC PROGRESS REPORT ---
Subjective Progress Note for:: 07/08/17 Subjective:: Is requesting to shower. Continues to have R lower extremity swelling and discomfort. Venous Doppler was negative for DVT. Reason For Visit: CELLULITIS FAILED OUTPATIENT ANTIBIOTICS Physical Exam Vital Signs: Temp Pulse Resp BP Pulse Ox 98.1 F 95 18 139/77 H 85 L 07/08/17 08:32 07/08/17 08:32 07/08/17 08:32 07/08/17 08:32 07/08/17 08:32 Intake & Output 07/07/17 07/08/17 07/09/17 06:59 06:59 06:59 Intake Total 300 1126 Balance 300 1126 Weight 198.7 kg 198 kg General appearance: PRESENT: no acute distress, morbidly obese Eye exam: ABSENT: periorbital swelling Ear exam: PRESENT: normal external ear exam Mouth exam: PRESENT: moist, neck supple Neck exam: ABSENT: tracheal deviation Respiratory exam: PRESENT: symmetrical, unlabored Cardiovascular exam: PRESENT: RRR GI/Abdominal exam: PRESENT: normal bowel sounds, soft. ABSENT: tenderness Rectal exam: PRESENT: deferred Additional comments: Right leg ulceration with surrounding erythema, the erythema has improved. There is a lot of slough in the base of the wound. Results Laboratory Results: 07/07/17 06:23 Impressions: Tibia/Fibula X-Ray 07/06/17 14:21 IMPRESSION: No acute bony changes. Diffuse soft tissue swelling with scattered calcification concerning for venous stasis. Venous Doppler Study 07/07/17 00:00 IMPRESSION: NO EVIDENCE DVT OR SVT IN THE RIGHT LEG. Assessment & Plan - Diagnosis (1) Cellulitis of right lower extremity Is this a current diagnosis for this admission?: Yes Plan: Day 3 of antibiotics. We will switch to Vanco and meropenem. Wound culture growing E. coli and staph. Sensitivities for staph aureus pending. Analgesics as needed for pain. Continue wound care. Surgical consult for possible debridement. (2) History of DVT (deep vein thrombosis) Is this a current diagnosis for this admission?: No (3) Morbid obesity Is this a current diagnosis for this admission?: Yes
[2017-07-08] MEDS ORDERED: VANCOMYCIN HCL 0 MG in DEXTROSE 5%-WATER 250 ML IV NR (11:45)
[2017-07-08] MEDS ORDERED: MEROPENEM 1 GM in NORMAL SALINE 50 ML IV SCH (14:00)
[2017-07-08] MEDS: MEROPENEM 1 GM in NORMAL SALINE 100 ML IV SCH ×2 (14:46→22:36)
[2017-07-08] MEDS: COLLAGENASE CLOSTRIDIUM HIST. OINT 30 GM TP SCH ×3 (14:53→18:03)
--- NOTE | 2017-07-08 16:21 | PDOC CONSULTATION ---
Consultation Consult Date: 07/08/17 Consult reason:: ulcers right lower leg with cellulitis History of Present Illness Admission Date/PCP: 07/06/17 17:58 MARILY ALFONSO PA-C Patient complains of: Pains right lower leg History of Present Illness: Claims started to have ulcerations right lower leg in . She is being followed at the wound care center q Wednesday. She tried Unna Boot for 2 months but claims she is allergic to it and therefore stopped. SHE WAS SENT TO THE [facility] for antibiotic tx according to the patient. She was advised leg elevation but she claims she is not able to do it because of dyspnea whenlying flat and elevating legs. She just had a venous US which showed normal findings and no DVT/SVT Past Medical History Cardiac Medical History: Reports: Hypertension Denies: Coronary Artery Disease, Myocardial Infarction Pulmonary Medical History: Reports: Asthma, Bronchitis Denies: Chronic Obstructive Pulmonary Disease (COPD), Pneumonia Neurological Medical History: Denies: Seizures Endocrine Medical History: Reports: None, Diabetes Mellitus Type 2 - Diet controlled Musculoskeltal Medical History: Denies: Arthritis Psychiatric Medical History: Reports: Depression - from time to time pt stated Hematology: Denies: Anemia Past Surgical History Past Surgical History: Reports: Section, Cholecystectomy, Orthopedic Surgery - foot, Vascular Surgery - umbilical hernia Social History Lives with: Family Smoking Status: Never Smoker Frequency of Alcohol Use: None Hx Recreational Drug Use: No Drugs: None Hx Prescription Drug Abuse: No - Advance Directive Resuscitation Status: Full Code Family History Family History: Hypertension Parental Family History Reviewed: Yes Children Family History Reviewed: No Sibling(s) Family History Reviewed.: No Medication/Allergy Home Medications: Ammonium Lactate [Lac-Hydrin 12% Lotion 225Gm/Bottle] 1 applic TP BID 02/02/17 Loratadine [Claritin 10 mg Tablet] 10 mg PO DAILY 02/02/17 Nystatin [Mycostatin Topical Powder 15 gm] 1 applic TP BID 02/02/17 Hydroxyzine Pamoate [Vistaril 25 mg Capsule] 25 mg PO Q6HP PRN 07/06/17 Oxycodone HCl/Acetaminophen [Percocet 5-325 mg Tablet] 1 tab PO Q6HP PRN Warfarin Sodium [Coumadin 4 mg Tablet] 8 mg PO QHS 07/06/17 Collagenase Clostridium Hist. [Santyl Ointment 30 gm] 1 applic TOP DAILY Allergies/Adverse Reactions: adhesive Allergy (Verified 07/06/17 13:29) Cephalosporins Allergy (Verified 07/06/17 13:29) Iodine and Iodide Containing Produc Allergy (Verified 07/06/17 13:29) sulfamethoxazole [From Bactrim] Allergy (Verified 07/06/17 13:29) trimethoprim [From Bactrim] Allergy (Verified 07/06/17 13:29) Review of Systems Constitutional: PRESENT: other - Denies chills/fever Eyes: PRESENT: other - no visual/hearing problems Respiratory: PRESENT: other - no cough Gastrointestinal: PRESENT: other - no N/V Genitourinary: PRESENT: other - no dysuria Musculoskeletal: PRESENT: other - no joint swelling Neurological: PRESENT: other - no seizures Psychiatric: PRESENT: depression Endocrine: PRESENT: other - no polyuria Physical Exam Vital Signs: Temp Pulse Resp BP Pulse Ox 98.5 F 74 17 109/79 90 L 07/08/17 12:08 07/08/17 12:08 07/08/17 12:08 07/08/17 12:08 07/08/17 12:08 Intake & Output 07/07/17 07/08/17 07/09/17 06:59 06:59 06:59 Intake Total 300 1126 480 Balance 300 1126 480 Weight 198.7 kg 198 kg General appearance: PRESENT: mild distress, morbidly obese Head exam: PRESENT: atraumatic Eye exam: PRESENT: conjunctiva pink Mouth exam: PRESENT: moist Neck exam: PRESENT: full ROM Respiratory exam: PRESENT: clear to auscultation tony Cardiovascular exam: PRESENT: RRR Pulses: PRESENT: normal radial pulses, normal dorsalis pedis pul - difficult to palpate ankle pulses partly because of edema GI/Abdominal exam: PRESENT: soft Rectal exam: PRESENT: deferred Extremities exam: PRESENT: calf tenderness - right lateral where the 2 ulcers are, pedal edema, +1 edema Musculoskeletal exam: PRESENT: tenderness - marked tenderness along the right lateral area where there is erythema and the 2 ulcers in the middle Neurological exam: PRESENT: alert, oriented to person, oriented to place, oriented to time, oriented to situation Psychiatric exam: PRESENT: anxious Skin exam: PRESENT: erythema, warm - along rt lateral lower leg Results Laboratory Results: 07/07/17 06:23 Impressions: Tibia/Fibula X-Ray 07/06/17 14:21 IMPRESSION: No acute bony changes. Diffuse soft tissue swelling with scattered calcification concerning for venous stasis. Venous Doppler Study 07/07/17 00:00 IMPRESSION: NO EVIDENCE DVT OR SVT IN THE RIGHT LEG. Assessment & Plan - Diagnosis (2) Cellulitis Qualifiers: Site of cellulitis: extremity Site of cellulitis of extremity: lower extremity Laterality: right Qualified Code(s): L03.115 - Cellulitis of right lower limb Is this a current diagnosis for this admission?: Yes (3) Cellulitis of right lower extremity Is this a current diagnosis for this admission?: Yes (4) Morbid obesity Is this a current diagnosis for this admission?: Yes - Time Time Spent: 30 to 50 Minutes - Inpatient Certification Medical Necessity: Failure to Improve With Outpatient Therapy, Significant Comorbidiites Make Outpatient Treatment Too Risky, Need for Pain Control, Need for IV Antibiotics, Risk of Complication if Not Cared For in Hospital - Plan Summary Plan Summary: Continue with Santyl dressings over ulcers Try leg elevation since pt unable to tolerate UNNA boot placement at this time. Hopefully after a few days. Continue IV antibiotic tx
--- NOTE | 2017-07-08 18:31 | Physician Advisory Note ---
Physician Advisor ProgressNote .: Pursuant to the plan for [facility], I have reviewed the medical record for this patient. Physician Advisor Statement: QUick note for chart reviewers - no indication of sepsis in this case. CK
[2017-07-08] MEDS: WARFARIN SODIUM 4 MG TABLET PO SCH (22:35)
[2017-07-09] MEDS: OXYCODONE-ACETAMINOPHEN 5-325 MG TABLET PO PRN ×3 (02:31→21:27)
[2017-07-09] MEDS: MEROPENEM 1 GM in NORMAL SALINE 100 ML IV SCH ×3 (05:18→21:29)
[2017-07-09] MEDS: HEPARIN SOD (PORCINE) 5,000 UNIT/ML 1 ML SYRINGE SUBCUT SCH ×3 (05:19→21:29)
[2017-07-09 07:10] LABS: INTERNATIONAL RATION (INR) 1.53; PROTHROMBIN TIME 19.3 SEC (11.4-15.4)
[2017-07-09] MEDS ORDERED: WARFARIN SODIUM 4 MG TABLET PO SCH (08:17)
[2017-07-09] MEDS: LACTOBACILLUS ACIDOPHILUS 250 MG TAB PO SCH ×2 (10:14→21:27)
[2017-07-09] MEDS: LORATADINE 10 MG TABLET PO SCH (10:14)
[2017-07-09] MEDS: AMMONIUM LACTATE 12% LOTION 225GM BOTTLE TP SCH ×2 (10:14→21:29)
[2017-07-09] MEDS: COLLAGENASE CLOSTRIDIUM HIST. OINT 30 GM TP SCH ×3 (10:14→18:33)
[2017-07-09] MEDS: MORPHINE SULFATE 10 MG/ML INJ IV PRN (14:28)
--- NOTE | 2017-07-09 14:57 | PDOC PROGRESS REPORT ---
Subjective Progress Note for:: 07/09/17 Subjective:: Right lower leg still with a lot of pains Reason For Visit: CELLULITIS FAILED OUTPATIENT ANTIBIOTICS Physical Exam Vital Signs: Temp Pulse Resp BP Pulse Ox 98.1 F 87 20 149/97 H 93 07/09/17 11:42 07/09/17 11:42 07/09/17 11:42 07/09/17 11:42 07/09/17 11:42 Intake & Output 07/08/17 07/09/17 07/10/17 06:59 06:59 06:59 Intake Total 1126 680 Balance 1126 680 Weight 198 kg 198.5 kg Exam: Right lower leg still swollen and tender. Redness appears to be decreasing Results Laboratory Results: 07/07/17 06:23 Impressions: Tibia/Fibula X-Ray 07/06/17 14:21 IMPRESSION: No acute bony changes. Diffuse soft tissue swelling with scattered calcification concerning for venous stasis. Venous Doppler Study 07/07/17 00:00 IMPRESSION: NO EVIDENCE DVT OR SVT IN THE RIGHT LEG. Assessment & Plan - Diagnosis (2) Cellulitis Qualifiers: Site of cellulitis: extremity Site of cellulitis of extremity: lower extremity Laterality: right Qualified Code(s): L03.115 - Cellulitis of right lower limb Is this a current diagnosis for this admission?: Yes (3) Cellulitis of right lower extremity Is this a current diagnosis for this admission?: Yes (4) Morbid obesity Is this a current diagnosis for this admission?: Yes - Time Time Spent with patient: 15-24 minutes - Inpatient Certification Medical Necessity: Need for Pain Control, Need for IV Antibiotics - Plan Summary Plan Summary: Not ready for Unna boot yet. Need to continue elevate right leg as much as she can. Very difficult because of morbid obesity Continue IV antibiotics. Will follow Wednesday and hopefully will be ready for Unna boot tx then.
--- NOTE | 2017-07-09 17:00 | PDOC PROGRESS REPORT ---
Subjective Progress Note for:: 07/09/17 Subjective:: Continues to have R lower extremity swelling, redness has improved Venous Doppler was negative for DVT. Surgical input appreciated. Plan for unna boot once swelling improves. day 2 of Meropenem. Reason For Visit: CELLULITIS FAILED OUTPATIENT ANTIBIOTICS Physical Exam Vital Signs: Temp Pulse Resp BP Pulse Ox 98.0 F 80 20 143/79 H 96 07/09/17 15:05 07/09/17 15:05 07/09/17 15:05 07/09/17 15:05 07/09/17 15:05 Intake & Output 07/08/17 07/09/17 07/10/17 06:59 06:59 06:59 Intake Total 1126 680 Balance 1126 680 Weight 198 kg 198.5 kg General appearance: PRESENT: morbidly obese Head exam: PRESENT: atraumatic, normocephalic Eye exam: PRESENT: EOMI, PERRLA Neck exam: ABSENT: tenderness, tracheal deviation Respiratory exam: PRESENT: clear to auscultation tony, symmetrical, unlabored Cardiovascular exam: PRESENT: RRR GI/Abdominal exam: PRESENT: normal bowel sounds, soft. ABSENT: tenderness - redness on R lower extremity improving, still swollen Results Laboratory Results: 07/07/17 06:23 Impressions: Tibia/Fibula X-Ray 07/06/17 14:21 IMPRESSION: No acute bony changes. Diffuse soft tissue swelling with scattered calcification concerning for venous stasis. Venous Doppler Study 07/07/17 00:00 IMPRESSION: NO EVIDENCE DVT OR SVT IN THE RIGHT LEG. Assessment & Plan - Diagnosis (1) Cellulitis of right lower extremity Is this a current diagnosis for this admission?: Yes Plan: Day 4 of antibiotics. Now on meropenem. Wound culture growing E. coli and staph. Analgesics as needed for pain. Continue wound care. Surgical consult appreciated. (2) History of DVT (deep vein thrombosis) Is this a current diagnosis for this admission?: No Plan: Continue Coumadin. Monitor INR. (3) Morbid obesity Is this a current diagnosis for this admission?: Yes - Time Time Spent with patient: 25-34 minutes
[2017-07-09] MEDS ORDERED: HYDROXYZINE PAMOATE 25 MG CAPSULE ONE (19:21)
[2017-07-09] MEDS: WARFARIN SODIUM 5 MG TABLET PO SCH (21:28)
[2017-07-10] MEDS: MORPHINE SULFATE 10 MG/ML INJ IV PRN (00:05)
[2017-07-10] MEDS: OXYCODONE-ACETAMINOPHEN 5-325 MG TABLET PO PRN ×3 (04:20→18:08)
[2017-07-10] MEDS: HEPARIN SOD (PORCINE) 5,000 UNIT/ML 1 ML SYRINGE SUBCUT SCH ×3 (05:05→21:22)
[2017-07-10] MEDS: MEROPENEM 1 GM in NORMAL SALINE 100 ML IV SCH ×3 (05:44→21:19)
[2017-07-10 06:59] LABS: HEMOGLOBIN 9.1 g/dL (12.0-15.5); MEAN CORPUSCULAR HEMOGLOBIN 24.4 pg (27.0-33.4); MEAN CORPUSCULAR HGB CONC 30.3 g/dL (32.0-36.0); MEAN CORPUSCULAR VOLUME 80 fl (80-97); PLATELET COUNT 277 10^3/uL (150-450); RED BLOOD COUNT 3.73 10^6/uL (3.72-5.28); RED CELL DISTRIBUTION WIDTH 16.7 % (11.5-14.0); WHITE BLOOD COUNT 6.5 10^3/uL (4.0-10.5)
[2017-07-10 07:06] LABS: INTERNATIONAL RATION (INR) 1.72; PROTHROMBIN TIME 21.2 SEC (11.4-15.4)
[2017-07-10 07:20] LABS: ALANINE AMINOTRANSFERASE 53 U/L (9-52); ALBUMIN 3.3 g/dL (3.5-5.0); ALKALINE PHOSPHATASE 84 U/L (38-126); ANION GAP 5 (5-19); ASPARTATE AMINO TRANSFERASE 40 U/L (14-36); BILIRUBIN,DIRECT 0.1 mg/dL (0.0-0.4); BILIRUBIN,TOTAL 0.1 mg/dL (0.2-1.3); BLOOD UREA NITROGEN 12 mg/dL (7-20); CALCIUM 8.8 mg/dL (8.4-10.2); CARBON DIOXIDE 37 mmol/L (22-30); CHLORIDE 99 mmol/L (98-107); GLUCOSE 88 mg/dL (75-110); POTASSIUM 4.6 mmol/L (3.6-5.0); SODIUM 140.8 mmol/L (137-145); TOTAL PROTEIN 7.1 g/dL (6.3-8.2)
[2017-07-10] MEDS: LORATADINE 10 MG TABLET PO SCH (09:51)
[2017-07-10] MEDS: COLLAGENASE CLOSTRIDIUM HIST. OINT 30 GM TP SCH ×3 (09:51→17:10)
[2017-07-10] MEDS: LACTOBACILLUS ACIDOPHILUS 250 MG TAB PO SCH ×2 (09:51→21:20)
[2017-07-10] MEDS: AMMONIUM LACTATE 12% LOTION 225GM BOTTLE TP SCH ×2 (09:52→21:21)
[2017-07-10] MEDS: HYDROXYZINE PAMOATE 25 MG CAPSULE PO PRN ×2 (12:35→18:07)
--- NOTE | 2017-07-10 13:38 | PDOC PROGRESS REPORT ---
Subjective Progress Note for:: 07/10/17 Subjective:: feels better- slowly improving. Venous Doppler was negative for DVT. Surgical input appreciated. Plan for unna boot once swelling improves. Day 3 of Meropenem. Reason For Visit: CELLULITIS FAILED OUTPATIENT ANTIBIOTICS Physical Exam Vital Signs: Temp Pulse Resp BP Pulse Ox 98.5 F 92 16 134/72 H 94 07/10/17 12:00 07/10/17 12:00 07/10/17 12:00 07/10/17 12:00 07/10/17 12:00 Intake & Output 07/09/17 07/10/17 07/11/17 06:59 06:59 06:59 Intake Total 680 Balance 680 Weight 198.5 kg 199.5 kg General appearance: PRESENT: morbidly obese Head exam: PRESENT: atraumatic, normocephalic Eye exam: PRESENT: conjunctiva pink, PERRLA. ABSENT: scleral icterus Mouth exam: PRESENT: moist, neck supple, tongue midline Neck exam: ABSENT: tracheal deviation Respiratory exam: PRESENT: clear to auscultation tony, symmetrical, unlabored Cardiovascular exam: PRESENT: RRR GI/Abdominal exam: PRESENT: normal bowel sounds, soft. ABSENT: tenderness Rectal exam: PRESENT: deferred Extremities exam: PRESENT: pedal edema. ABSENT: calf tenderness Neurological exam: PRESENT: alert, awake, oriented to person, oriented to place , oriented to time - R leg swelling and erythema- much improved. 3x5 cm ulcers with central slough present Results Laboratory Results: 07/10/17 06:39 07/10/17 06:39 07/10/17 07/10/17 06:39 06:39 WBC 6.5 RBC 3.73 Hgb 9.1 L Hct 30.0 L MCV 80 MCH 24.4 L MCHC 30.3 L RDW 16.7 H Plt Count 277 Sodium 140.8 Potassium 4.6 Chloride 99 Carbon Dioxide 37 H Anion Gap 5 BUN 12 Creatinine 0.76 Est GFR ( Amer) > 60 Est GFR (Non-Af Amer) > 60 Glucose 88 Calcium 8.8 Phosphorus 4.0 Magnesium 2.0 Total Bilirubin 0.1 L AST 40 H ALT 53 H Alkaline Phosphatase 84 Total Protein 7.1 Albumin 3.3 L Impressions: Tibia/Fibula X-Ray 07/06/17 14:21 IMPRESSION: No acute bony changes. Diffuse soft tissue swelling with scattered calcification concerning for venous stasis. Venous Doppler Study 07/07/17 00:00 IMPRESSION: NO EVIDENCE DVT OR SVT IN THE RIGHT LEG. Assessment & Plan - Diagnosis (1) Cellulitis of right lower extremity Is this a current diagnosis for this admission?: Yes Plan: Day 3 of meropenem. Wound culture growing E. coli and staph. Analgesics as needed for pain. Continue wound care. Surgical consult appreciated. (2) History of DVT (deep vein thrombosis) Is this a current diagnosis for this admission?: No Plan: Continue Coumadin. Monitor INR. (3) Morbid obesity Is this a current diagnosis for this admission?: Yes - Time Time Spent with patient: 25-34 minutes
[2017-07-10] MEDS: WARFARIN SODIUM 5 MG TABLET PO SCH (21:20)
[2017-07-11] MEDS: OXYCODONE-ACETAMINOPHEN 5-325 MG TABLET PO PRN ×3 (00:56→17:16)
[2017-07-11] MEDS: HYDROXYZINE PAMOATE 25 MG CAPSULE PO PRN ×2 (00:57→11:21)
[2017-07-11] MEDS: MORPHINE SULFATE 10 MG/ML INJ IV PRN ×2 (05:16→21:16)
[2017-07-11] MEDS: MEROPENEM 1 GM in NORMAL SALINE 100 ML IV SCH ×3 (05:18→21:16)
[2017-07-11] MEDS: HEPARIN SOD (PORCINE) 5,000 UNIT/ML 1 ML SYRINGE SUBCUT SCH ×3 (05:19→21:22)
[2017-07-11 07:35] LABS: PROTHROMBIN TIME 21.9 SEC (11.4-15.4)
[2017-07-11] MEDS: LACTOBACILLUS ACIDOPHILUS 250 MG TAB PO SCH ×2 (11:21→21:15)
[2017-07-11] MEDS: LORATADINE 10 MG TABLET PO SCH (11:21)
[2017-07-11] MEDS: COLLAGENASE CLOSTRIDIUM HIST. OINT 30 GM TP SCH ×2 (12:00→17:11)
[2017-07-11] MEDS: AMMONIUM LACTATE 12% LOTION 225GM BOTTLE TP SCH ×2 (13:04→21:22)
--- NOTE | 2017-07-11 14:14 | PDOC PROGRESS REPORT ---
Subjective Progress Note for:: 07/11/17 Subjective:: The patient reports she feels better- swelling and redness R leg improved. Mobility is limited due to morbid obesity Venous Doppler was negative for DVT. Surgical input appreciated. Plan for unna boot on Wednesday, on Wednesday once swelling improves. Day 4 of Meropenem. Wound cultures- ESBL E. coli and Staph aureus both sensitive. Reason For Visit: CELLULITIS FAILED OUTPATIENT ANTIBIOTICS Physical Exam Vital Signs: Temp Pulse Resp BP Pulse Ox 98.1 F 104 H 16 164/82 H 96 07/11/17 11:01 07/11/17 11:01 07/11/17 11:01 07/11/17 11:01 07/11/17 11:01 Intake & Output 07/10/17 07/11/17 07/12/17 06:59 06:59 06:59 Weight 199.5 kg 197 kg General appearance: PRESENT: no acute distress, morbidly obese Eye exam: PRESENT: EOMI. ABSENT: scleral icterus Mouth exam: PRESENT: moist Neck exam: ABSENT: tracheal deviation Respiratory exam: PRESENT: clear to auscultation tony, symmetrical, unlabored. ABSENT: wheezes Cardiovascular exam: PRESENT: RRR GI/Abdominal exam: PRESENT: normal bowel sounds, soft. ABSENT: tenderness Rectal exam: PRESENT: deferred Neurological exam: PRESENT: alert, awake, oriented to place, oriented to time - R leg ulcers and erythema and swelling- much improved. Psychiatric exam: PRESENT: normal mood Results Laboratory Results: 07/10/17 06:39 07/10/17 06:39 Impressions: Tibia/Fibula X-Ray 07/06/17 14:21 IMPRESSION: No acute bony changes. Diffuse soft tissue swelling with scattered calcification concerning for venous stasis. Venous Doppler Study 07/07/17 00:00 IMPRESSION: NO EVIDENCE DVT OR SVT IN THE RIGHT LEG. Assessment & Plan - Diagnosis (1) Cellulitis of right lower extremity Is this a current diagnosis for this admission?: Yes Plan: Day 4 of meropenem. Wound culture growing E. coli and staph. Analgesics as needed for pain. Continue wound care. Surgical consult appreciated. (2) History of DVT (deep vein thrombosis) Is this a current diagnosis for this admission?: No Plan: Continue Coumadin. Monitor INR. (3) Morbid obesity Is this a current diagnosis for this admission?: Yes - Time Time Spent with patient: 25-34 minutes
[2017-07-11] MEDS: WARFARIN SODIUM 5 MG TABLET PO SCH (21:15)
[2017-07-12] MEDS: OXYCODONE-ACETAMINOPHEN 5-325 MG TABLET PO PRN ×4 (00:01→21:49)
[2017-07-12] MEDS: MORPHINE SULFATE 10 MG/ML INJ IV PRN (04:11)
[2017-07-12] MEDS ORDERED: HYDROXYZINE PAMOATE 25 MG CAPSULE ONE (04:54)
[2017-07-12] MEDS: HYDROXYZINE PAMOATE 25 MG CAPSULE PO PRN ×3 (04:56→21:50)
[2017-07-12] MEDS: HEPARIN SOD (PORCINE) 5,000 UNIT/ML 1 ML SYRINGE SUBCUT SCH ×3 (05:03→21:52)
[2017-07-12] MEDS: MEROPENEM 1 GM in NORMAL SALINE 100 ML IV SCH ×3 (05:05→21:51)
[2017-07-12 07:25] LABS: INTERNATIONAL RATION (INR) 1.79; PROTHROMBIN TIME 21.8 SEC (11.4-15.4)
[2017-07-12] MEDS: LACTOBACILLUS ACIDOPHILUS 250 MG TAB PO SCH ×2 (09:58→21:50)
[2017-07-12] MEDS: COLLAGENASE CLOSTRIDIUM HIST. OINT 30 GM TP SCH ×3 (10:00→18:02)
[2017-07-12] MEDS: LORATADINE 10 MG TABLET PO SCH (10:02)
[2017-07-12] MEDS: AMMONIUM LACTATE 12% LOTION 225GM BOTTLE TP SCH ×2 (10:03→21:51)
[2017-07-12] MEDS ORDERED: NYSTATIN TOPICAL POWDER 15 GM TP PRN (12:28)
--- NOTE | 2017-07-12 13:10 | PDOC PROGRESS REPORT ---
Subjective Progress Note for:: 07/12/17 Subjective:: The patient reports she feels better- swelling and redness R leg improved. Mobility is limited due to morbid obesity Venous Doppler was negative for DVT. Surgical input appreciated. Plan for unna boot once swelling improves. Day 5 of Meropenem. Wound cultures- ESBL E. coli and Staph aureus both sensitive. Feels better. No complaints. Reason For Visit: CELLULITIS FAILED OUTPATIENT ANTIBIOTICS Physical Exam Vital Signs: Temp Pulse Resp BP Pulse Ox 97.8 F 96 18 124/60 94 07/12/17 11:24 07/12/17 11:24 07/12/17 11:24 07/12/17 11:24 07/12/17 11:24 Intake & Output 07/11/17 07/12/17 07/13/17 06:59 06:59 06:59 Weight 197 kg 199.8 kg General appearance: PRESENT: morbidly obese Head exam: PRESENT: normocephalic Eye exam: PRESENT: PERRLA. ABSENT: scleral icterus Mouth exam: PRESENT: moist, neck supple Respiratory exam: PRESENT: clear to auscultation tony, symmetrical, unlabored Cardiovascular exam: PRESENT: RRR GI/Abdominal exam: PRESENT: normal bowel sounds, soft. ABSENT: tenderness Rectal exam: PRESENT: deferred Neurological exam: PRESENT: alert, awake, oriented to person, oriented to place , oriented to time - Redness andswelling R leg- improved Results Laboratory Results: 07/10/17 06:39 07/10/17 06:39 Impressions: Tibia/Fibula X-Ray 07/06/17 14:21 IMPRESSION: No acute bony changes. Diffuse soft tissue swelling with scattered calcification concerning for venous stasis. Venous Doppler Study 07/07/17 00:00 IMPRESSION: NO EVIDENCE DVT OR SVT IN THE RIGHT LEG. Assessment & Plan - Diagnosis (1) Cellulitis of right lower extremity Is this a current diagnosis for this admission?: Yes Plan: Day 45of meropenem. Wound culture growing E. coli and staph. Analgesics as needed for pain. Continue wound care. Surgical consult appreciated. (2) History of DVT (deep vein thrombosis) Is this a current diagnosis for this admission?: No Plan: Continue Coumadin. Monitor INR. (3) Morbid obesity Is this a current diagnosis for this admission?: Yes - Time Time Spent with patient: 25-34 minutes
[2017-07-12] MEDS: WARFARIN SODIUM 5 MG TABLET PO SCH (21:50)
[2017-07-13] MEDS: OXYCODONE-ACETAMINOPHEN 5-325 MG TABLET PO PRN ×2 (03:47→14:17)
[2017-07-13] MEDS: MEROPENEM 1 GM in NORMAL SALINE 100 ML IV SCH ×3 (05:23→23:21)
[2017-07-13] MEDS: HEPARIN SOD (PORCINE) 5,000 UNIT/ML 1 ML SYRINGE SUBCUT SCH ×3 (05:24→23:45)
[2017-07-13] MEDS: LACTOBACILLUS ACIDOPHILUS 250 MG TAB PO SCH ×2 (09:17→23:20)
[2017-07-13] MEDS: LORATADINE 10 MG TABLET PO SCH (09:18)
[2017-07-13] MEDS: COLLAGENASE CLOSTRIDIUM HIST. OINT 30 GM TP SCH ×3 (09:18→17:55)
[2017-07-13] MEDS: AMMONIUM LACTATE 12% LOTION 225GM BOTTLE TP SCH ×2 (09:19→23:45)
--- NOTE | 2017-07-13 17:03 | PDOC PROGRESS REPORT ---
Subjective Progress Note for:: 07/13/17 Subjective:: Feeling okay today. Eager to go home. Reason For Visit: CELLULITIS FAILED OUTPATIENT ANTIBIOTICS CARLYLE SINHA is a 57 year old female with morbid obesity (BMI greater than 70) , History of DVT and pulmonary embolism on Coumadin, and chronic stasis dermatitis and lipodermatosclerosis of the right leg. She presented to the ER due to worsening pain, erythema and discharge of her R leg wounds despite oral outpatient antibiotics and wound care at the wound clinic. X-ray of the tibial and fibular showed diffuse soft tissue swelling with scattered calcification concerning for venous stasis no acute bony changes. She was started on IV clindamycin and Zosyn. Wound and blood cultures were obtained. Warfarin was continued. Due to lack of improvement, her antibiotics were switched to vancomycin and meropenem at day 3. At the same time, her wound cultures grew ESBL E. coli and MSSA. A surgery consultation was obtained , over the ulcers. With recommendations to continue Santyl dressings leg elevation was attempted because she was unable to tolerate a Unna boot at that time. She remained on IV antibiotics until July 14. Sensitivities of the organisms from her wound culture were available. She was started on Augmentin. July 13, her leg edema had improved enough in order for a Unna boot to be placed. Physical Exam Vital Signs: Temp Pulse Resp BP Pulse Ox 98.0 F 95 16 121/56 L 97 07/13/17 11:41 07/13/17 11:41 07/13/17 11:41 07/13/17 11:41 07/13/17 11:41 Intake & Output 07/12/17 07/13/17 07/14/17 06:59 06:59 06:59 Intake Total 1506 300 Balance 1506 300 Weight 199.8 kg 195.5 kg General appearance: PRESENT: no acute distress, morbidly obese Head exam: PRESENT: atraumatic, normocephalic Respiratory exam: PRESENT: clear to auscultation tony. ABSENT: rales, rhonchi, wheezes Musculoskeletal exam: PRESENT: other - Right lower leg: Wrapped Neurological exam: PRESENT: alert, awake, oriented to person, oriented to place , oriented to time, oriented to situation, CN II-XII grossly intact. ABSENT: motor sensory deficit Results Laboratory Results: 07/10/17 06:39 07/10/17 06:39 Impressions: Tibia/Fibula X-Ray 07/06/17 14:21 IMPRESSION: No acute bony changes. Diffuse soft tissue swelling with scattered calcification concerning for venous stasis. Venous Doppler Study 07/07/17 00:00 IMPRESSION: NO EVIDENCE DVT OR SVT IN THE RIGHT LEG. Assessment & Plan - Diagnosis (1) Nonhealing ulcers rt lower leg Is this a current diagnosis for this admission?: Yes Plan: Continue Unna boot. Discontinue meropenem after last dose today, and start Augmentin tomorrow July 14. (2) Cellulitis of right lower extremity Is this a current diagnosis for this admission?: Yes Plan: See above. (3) History of DVT (deep vein thrombosis) Is this a current diagnosis for this admission?: Yes Plan: Continue warfarin. Check PT/INR daily (4) Morbid obesity Is this a current diagnosis for this admission?: Yes - Time Time Spent with patient: 15-24 minutes Medications reviewed and adjusted accordingly: Yes Anticipated discharge: Home Within: within 48 hours - Inpatient Certification Based on my medical assessment, after consideration of the patient's comorbidities, presenting symptoms, or acuity I expect that the services needed warrant INPATIENT care.: Yes I certify that my determination is in accordance with my understanding of Medicare's requirements for reasonable and necessary INPATIENT services [42 CFR 412.3e].: Yes Medical Necessity: Significant Comorbidiites Make Outpatient Treatment Too Risky , Need for IV Antibiotics
[2017-07-13] MEDS: HYDROXYZINE PAMOATE 25 MG CAPSULE PO PRN (18:48)
[2017-07-13] MEDS: WARFARIN SODIUM 5 MG TABLET PO SCH (23:19)
--- NOTE | 2017-07-13 23:34 | PDOC PROGRESS REPORT ---
Subjective Progress Note for:: 07/13/17 Subjective:: less pains right lower leg Reason For Visit: CELLULITIS FAILED OUTPATIENT ANTIBIOTICS Physical Exam Vital Signs: Temp Pulse Resp BP Pulse Ox 98.2 F 101 H 18 140/77 H 90 L 07/13/17 20:01 07/13/17 20:01 07/13/17 20:01 07/13/17 20:01 07/13/17 20:01 Intake & Output 07/12/17 07/13/17 07/14/17 06:59 06:59 06:59 Intake Total 1506 300 Balance 1506 300 Weight 199.8 kg 195.5 kg Exam: Less edema and erythema right lower leg Results Laboratory Results: 07/10/17 06:39 07/10/17 06:39 Impressions: Tibia/Fibula X-Ray 07/06/17 14:21 IMPRESSION: No acute bony changes. Diffuse soft tissue swelling with scattered calcification concerning for venous stasis. Venous Doppler Study 07/07/17 00:00 IMPRESSION: NO EVIDENCE DVT OR SVT IN THE RIGHT LEG. Assessment & Plan - Diagnosis (1) Nonhealing ulcers rt lower leg Is this a current diagnosis for this admission?: Yes (2) Cellulitis Qualifiers: Site of cellulitis: extremity Site of cellulitis of extremity: lower extremity Laterality: right Qualified Code(s): L03.115 - Cellulitis of right lower limb Is this a current diagnosis for this admission?: Yes (3) Cellulitis of right lower extremity Is this a current diagnosis for this admission?: Yes (4) Morbid obesity Is this a current diagnosis for this admission?: Yes - Time Time Spent with patient: 15-24 minutes - Plan Summary Plan Summary: Pt requesring EDWARDO bandage dressings prior to Unna boot placement. Hopefully will allow us to place unna boot tomorrow.
[2017-07-14] MEDS: OXYCODONE-ACETAMINOPHEN 5-325 MG TABLET PO PRN ×4 (00:31→21:21)
[2017-07-14 07:42] LABS: INTERNATIONAL RATION (INR) 1.99; PROTHROMBIN TIME 23.7 SEC (11.4-15.4)
[2017-07-14] MEDS: HEPARIN SOD (PORCINE) 5,000 UNIT/ML 1 ML SYRINGE SUBCUT SCH ×3 (08:16→21:23)
--- NOTE | 2017-07-14 09:43 | PDOC PROGRESS REPORT ---
Subjective Progress Note for:: 07/14/17 Subjective:: CARLYLE SINHA is a 57 year old female with morbid obesity (BMI greater than 70) , History of DVT and pulmonary embolism on Coumadin, and chronic stasis dermatitis and lipodermatosclerosis of the right leg. She presented to the ER due to worsening pain, erythema and discharge of her R leg wounds despite oral outpatient antibiotics and wound care at the wound clinic. X-ray of the tibial and fibular showed diffuse soft tissue swelling with scattered calcification concerning for venous stasis no acute bony changes. She was started on IV clindamycin and Zosyn. Wound and blood cultures were obtained. Warfarin was continued. Due to lack of improvement, her antibiotics were switched to vancomycin and meropenem at day 3. At the same time, her wound cultures grew ESBL E. coli and MSSA. A surgery consultation was obtained , over the ulcers. With recommendations to continue Santyl dressings leg elevation was attempted because she was unable to tolerate a Unna boot at that time. She remained on IV antibiotics until July 14. Sensitivities of the organisms from her wound culture were available. She was started on Augmentin. July 13, her leg edema had improved enough in order for a Unna boot to be placed. 07/13 Feeling okay today. Eager to go home. 07/14 No problems overnight. Oral antibiotics started today. Reason For Visit: CELLULITIS FAILED OUTPATIENT ANTIBIOTICS Physical Exam Vital Signs: Temp Pulse Resp BP Pulse Ox 98.0 F 102 H 20 149/81 H 90 L 07/14/17 08:16 07/14/17 08:16 07/14/17 08:16 07/14/17 08:16 07/14/17 08:16 Intake & Output 07/13/17 07/14/17 07/15/17 06:59 06:59 06:59 Intake Total 1506 300 Balance 1506 300 Weight 195.5 kg 195.5 kg General appearance: PRESENT: no acute distress Head exam: PRESENT: atraumatic, normocephalic Eye exam: PRESENT: EOMI, PERRLA Respiratory exam: PRESENT: clear to auscultation tony. ABSENT: rales, rhonchi, wheezes Neurological exam: PRESENT: alert, awake, oriented to person, oriented to place , oriented to time, oriented to situation, CN II-XII grossly intact. ABSENT: motor sensory deficit Skin exam: PRESENT: other - three ulcerations over right lateral malleolus. with zone of erythema surround each. the largest is the size of a half-dollar, the other two about the size of a nickel Results Laboratory Results: 07/10/17 06:39 07/10/17 06:39 Impressions: Tibia/Fibula X-Ray 07/06/17 14:21 IMPRESSION: No acute bony changes. Diffuse soft tissue swelling with scattered calcification concerning for venous stasis. Venous Doppler Study 07/07/17 00:00 IMPRESSION: NO EVIDENCE DVT OR SVT IN THE RIGHT LEG. Assessment & Plan - Diagnosis (1) Nonhealing ulcers rt lower leg Is this a current diagnosis for this admission?: Yes Plan: Continue Unna boot. Start Augmentin today. (2) Cellulitis of right lower extremity Is this a current diagnosis for this admission?: Yes Plan: See above. (3) History of DVT (deep vein thrombosis) Is this a current diagnosis for this admission?: Yes Plan: Continue warfarin. Check PT/INR daily (4) Morbid obesity Is this a current diagnosis for this admission?: Yes - Time Time Spent with patient: 15-24 minutes Medications reviewed and adjusted accordingly: Yes Anticipated discharge: Home with Homehealth - Inpatient Certification Based on my medical assessment, after consideration of the patient's comorbidities, presenting symptoms, or acuity I expect that the services needed warrant INPATIENT care.: Yes I certify that my determination is in accordance with my understanding of Medicare's requirements for reasonable and necessary INPATIENT services [42 CFR 412.3e].: Yes Medical Necessity: Need for IV Antibiotics
[2017-07-14] MEDS: AMOXICILLIN TR/POT CLAVULANATE 500-125 MG TAB PO SCH ×3 (09:47→21:22)
[2017-07-14] MEDS: LORATADINE 10 MG TABLET PO SCH (09:47)
[2017-07-14] MEDS: LACTOBACILLUS ACIDOPHILUS 250 MG TAB PO SCH ×2 (09:48→21:21)
[2017-07-14] MEDS ORDERED: MORPHINE SULFATE 10 MG/ML INJ IV ONE (11:30)
[2017-07-14] MEDS: COLLAGENASE CLOSTRIDIUM HIST. OINT 30 GM TP SCH ×3 (12:15→17:09)
[2017-07-14] MEDS: AMMONIUM LACTATE 12% LOTION 225GM BOTTLE TP SCH ×2 (15:28→21:23)
--- NOTE | 2017-07-14 19:06 | PDOC PROGRESS REPORT ---
Subjective Progress Note for:: 07/14/17 Subjective:: Still with pains lright lower leg but continues to improve I was able to place an Unna boot. This should be changed daily until ulcers heal Arrange for daily visiting nurse to change Unna boot at home daily Arrange follow up with [facility] in 1-2 weeks May be placed on po antibiotics for another 5-7 days Reason For Visit: CELLULITIS FAILED OUTPATIENT ANTIBIOTICS Physical Exam Vital Signs: Temp Pulse Resp BP Pulse Ox 98.0 F 88 18 147/84 H 91 L 07/14/17 15:40 07/14/17 15:40 07/14/17 15:40 07/14/17 15:40 07/14/17 15:40 Intake & Output 07/13/17 07/14/17 07/15/17 06:59 06:59 06:59 Intake Total 9041 917 3406 Balance 1686 642 9462 Weight 195.5 kg 195.5 kg Results Laboratory Results: 07/10/17 06:39 07/10/17 06:39 Impressions: Tibia/Fibula X-Ray 07/06/17 14:21 IMPRESSION: No acute bony changes. Diffuse soft tissue swelling with scattered calcification concerning for venous stasis. Venous Doppler Study 07/07/17 00:00 IMPRESSION: NO EVIDENCE DVT OR SVT IN THE RIGHT LEG. Assessment & Plan - Diagnosis (1) Nonhealing ulcers rt lower leg Is this a current diagnosis for this admission?: Yes (2) Cellulitis Qualifiers: Site of cellulitis: extremity Site of cellulitis of extremity: lower extremity Laterality: right Qualified Code(s): L03.115 - Cellulitis of right lower limb Is this a current diagnosis for this admission?: Yes (3) Cellulitis of right lower extremity Is this a current diagnosis for this admission?: Yes (4) Morbid obesity Is this a current diagnosis for this admission?: Yes
[2017-07-14] MEDS: WARFARIN SODIUM 5 MG TABLET PO SCH (21:21)
[2017-07-14] MEDS: HYDROXYZINE PAMOATE 25 MG CAPSULE PO PRN (21:38)
[2017-07-15] MEDS: AMOXICILLIN TR/POT CLAVULANATE 500-125 MG TAB PO SCH (05:17)
[2017-07-15] MEDS: HEPARIN SOD (PORCINE) 5,000 UNIT/ML 1 ML SYRINGE SUBCUT SCH (05:18)
[2017-07-15 06:46] LABS: INTERNATIONAL RATION (INR) 2.12; PROTHROMBIN TIME 24.9 SEC (11.4-15.4)
[2017-07-15] MEDS: OXYCODONE-ACETAMINOPHEN 5-325 MG TABLET PO PRN (07:56)
[2017-07-15] MEDS: LACTOBACILLUS ACIDOPHILUS 250 MG TAB PO SCH (10:07)
[2017-07-15] MEDS: COLLAGENASE CLOSTRIDIUM HIST. OINT 30 GM TP SCH (10:07)
[2017-07-15] MEDS: LORATADINE 10 MG TABLET PO SCH (10:08)
[2017-07-15] MEDS: AMMONIUM LACTATE 12% LOTION 225GM BOTTLE TP SCH (10:08)
[2017-07-15 13:46] VITALS: BP 122/79
--- NOTE | 2017-07-15 14:10 | PDOC DISCHARGE SUMMARY ---
General - Admit/Disc Date/PCP Admission Date/Primary Care Provider: 07/06/17 17:58 MARILY ALFONSO PA-C Discharge Date: 07/15/17 - Discharge Diagnosis (1) Nonhealing ulcers rt lower leg Is this a current diagnosis for this admission?: Yes (2) Cellulitis of right lower extremity Is this a current diagnosis for this admission?: Yes (3) History of DVT (deep vein thrombosis) Is this a current diagnosis for this admission?: Yes (4) Morbid obesity Is this a current diagnosis for this admission?: Yes - Additional Information Resuscitation Status: Full Code Discharge Diet: As Tolerated Discharge Activity: Activity As Tolerated, Keep Legs Elevated Prescriptions: Amox Tr/Potassium Clavulanate [Augmentin "500" Tablet] 1 tab PO Q8 #21 tablet Lactobacillus Acidophilus [Bacid 250 mg Tablet] 500 mg PO Q12 #60 tab Home Medications: Ammonium Lactate [Lac-Hydrin 12% Lotion 225Gm/Bottle] 1 applic TP BID 02/02/17 Loratadine [Claritin 10 mg Tablet] 10 mg PO DAILY 02/02/17 Nystatin [Mycostatin Topical Powder 15 gm] 1 applic TP BID 02/02/17 Hydroxyzine Pamoate [Vistaril 25 mg Capsule] 25 mg PO Q6HP PRN 07/06/17 Oxycodone HCl/Acetaminophen [Percocet 5-325 mg Tablet] 1 tab PO Q6HP PRN Warfarin Sodium [Coumadin 4 mg Tablet] 8 mg PO QHS 07/06/17 Collagenase Clostridium Hist. [Santyl Ointment 30 gm] 1 applic TOP DAILY Amox Tr/Potassium Clavulanate [Augmentin "500" Tablet] 1 tab PO Q8 #21 tablet 07/15/17 Lactobacillus Acidophilus [Bacid 250 mg Tablet] 500 mg PO Q12 #60 tab 07/15/17 History of Present Illness History of Present Illness: CARLYLE SINHA is a 57 year old female with morbid obesity (BMI greater than 70) , History of DVT and pulmonary embolism on Coumadin, and chronic stasis dermatitis and lipodermatosclerosis of the right leg. She presented to the ER due to worsening pain, erythema and discharge of her R leg wounds despite oral outpatient antibiotics and wound care at the wound clinic. Hospital Course Hospital Course: X-ray of the tibial and fibular showed diffuse soft tissue swelling with scattered calcification concerning for venous stasis no acute bony changes. She was started on IV clindamycin and Zosyn. Wound and blood cultures were obtained. Warfarin was continued. Due to lack of improvement, her antibiotics were switched to vancomycin and meropenem at day 3. At the same time, her wound cultures grew ESBL E. coli and MSSA. A surgery consultation was obtained , over the ulcers. With recommendations to continue Santyl dressings leg elevation was attempted because she was unable to tolerate a Unna boot at that time. She remained on IV antibiotics until July 14. Sensitivities of the organisms from her wound culture were available. She was started on Augmentin. July 13, her leg edema had improved enough in order for a Unna boot to be placed. However, the zinc paste caused excruciating pain, so the boot was removed. Her leg was re-wrapped using EDWARDO bandage as before. Physical Exam Vital Signs: Temp Pulse Resp BP Pulse Ox 97.6 F 99 18 122/79 90 L 07/15/17 13:41 07/15/17 13:41 07/15/17 13:41 07/15/17 13:41 07/15/17 13:41 Intake & Output 07/14/17 07/15/17 07/16/17 06:59 06:59 06:59 Intake Total 300 1600 Balance 300 1600 Weight 195.5 kg 199.3 kg General appearance: PRESENT: morbidly obese Head exam: PRESENT: atraumatic, normocephalic Eye exam: PRESENT: EOMI, PERRLA Respiratory exam: PRESENT: clear to auscultation tony. ABSENT: rales, rhonchi, wheezes Cardiovascular exam: PRESENT: RRR. ABSENT: diastolic murmur, rubs, systolic murmur Musculoskeletal exam: PRESENT: ambulatory Neurological exam: PRESENT: alert, awake, oriented to person, oriented to place , oriented to time, oriented to situation, CN II-XII grossly intact. ABSENT: motor sensory deficit Psychiatric exam: PRESENT: appropriate affect, normal mood. ABSENT: homicidal ideation, suicidal ideation Skin exam: PRESENT: other - Right lower leg just above the lateral malleolus is erythematous. There are 3 ulcerations. The largest is about 2 cm. The other two are 1 cm each. Results Laboratory Results: 07/10/17 06:39 07/10/17 06:39 Impressions: Tibia/Fibula X-Ray 07/06/17 14:21 IMPRESSION: No acute bony changes. Diffuse soft tissue swelling with scattered calcification concerning for venous stasis. Venous Doppler Study 07/07/17 00:00 IMPRESSION: NO EVIDENCE DVT OR SVT IN THE RIGHT LEG. Qualifiers - * PATEINT BEING DISCHARGED WITH ANY OF THE FOLLOWING DIAGNOSIS?: No Plan Discharge Plan: Home health every other day for dressing change and leg wrap. Follow up with wound clinic next week July 23 Time Spent: Greater than 30 Minutes - 40 minutes
== END 2017-07-15 15:07 | disposition home or self-care (01) | DRG 603 ==
LOC: ER 13:27 → EH 17:58 → 2N 19:05
PROVIDERS: ADMIT Internal Medicine; ATTEND Internal Medicine
DX: L03.115 Cellulitis of right lower limb (principal); L97.819 Non-pressure chronic ulcer of other part of right lower leg with unspecified severity; Z68.45 Body mass index [BMI] 70 or greater, adult; I83.218 Varicose veins of right lower extremity with both ulcer of other part of lower extremity and inflammation; E66.01 Morbid (severe) obesity due to excess calories; I10 Essential (primary) hypertension; B96.20 Unspecified Escherichia coli [E. coli] as the cause of diseases classified elsewhere; B95.61 Methicillin susceptible Staphylococcus aureus infection as the cause of diseases classified elsewhere; Z86.711 Personal history of pulmonary embolism; Z86.718 Personal history of other venous thrombosis and embolism; Z79.01 Long term (current) use of anticoagulants
CPT/HCPCS: 36415; 80048; 80053; 83036; 83735; 84100; 84443; 85025; 85027; 85610; 85652; 87040; 87070; 87077; 87186; 87205; 93005; 93010; 93971; 96365; 96375; 99284; J0780; J2185; J2270; J2543; J3370; J3490

== ENCOUNTER → 2017-08-17 | Outpatient (CLI) | payer MEDICAID ==
--- NOTE | 2017-08-17 19:50 | XCELERA REPORT ---
[address] [address] Lower Extremity Arterial Evaluation Name: CARLYLE SINHA Age: 57 yrs Gender: Female : 1960 Patient Status: Outpatient Patient Location: Study Date: 08/17/2017 03:07 PM Procedure: A color flow and duplex scan of the lower extremity arteries was performed bilaterally with velocity and waveform anaylsis. Ankle brachial indicies performed. Reason For Study: ULCER Ordering Physician: LISE MCCOY Performed By: Nuno Barillas Measurements and Calculations Right Left S[employer]ING [employer]ACH[employer] PSV 139.7 119.4 cm/sec Prox PFA PSV -76.1 -40.1 cm/sec Prox SFA PSV 113.1 127.8 cm/sec Mid SFA PSV -125.7 -132.0 cm/sec Dist SFA PSV -92.2 -97.1 cm/sec Prox Pop A PSV 89.3 66.4 cm/sec Mid JOAN PSV 33.2 73.1 cm/sec Mid ICEBOX MAN PSV 0.22 cm/sec Ge Pedis PSV -111.7 -108.7 cm/sec Right Side Arterial Evaluation Normal velocity and triphasic waveforms noted from the Common Femoral artery to the Anterior Tibial artery. Technically unable to visualize the Posterior Tibial artery, due to body habitus. 0 % stenosis. Ankle Brachial index not obtained due to ulcer.. Left Side Arterial Evaluation Normal velocity and triphasic waveforms noted from the Common Femoral artery to the Anterior Tibial artery. Technically unable to visualize the Posterior Tibial artery, due to body habitus. 0 % stenosis. Ankle Brachial index 1.06.. Interpretation Summary No hemodynamically significant lesions in the bilateral lower extremities, on duplex imaging, at rest. Study slightly incomplete as noted. : LISE MCCOY > Lise Mccoy
== END ==
LOC: SP 14:41
PROVIDERS: ATTEND Surgery
DX: L97.212 Non-pressure chronic ulcer of right calf with fat layer exposed (principal)
CPT/HCPCS: 93922; 93925

== ENCOUNTER 2017-11-08 14:59 | Emergency (ER) | payer MEDICAID ==
[2017-11-08 15:11] VITALS: BP 140/79
--- NOTE | 2017-11-08 15:22 | ER Document Report ---
ED General - General Chief Complaint: Skin Problem Stated Complaint: RIGHT ANKLE PAIN Time Seen by Provider: 11/08/17 15:16 Notes: Chief complaint: Right leg wound History of complain:( obtained from----patient) 57 years old female from wound clinic presents today with pain over the right lower leg, and ran out of her antibiotic. No fever chills or other constitutional symptoms. Onset: As above long-standing Duration: Chronic Severity: Moderate Quality: Sharp Context: Chronic wound infection Exacerbating factor and relieving factors: Gently touch increases the pain REVIEW OF SYSTEMS: CONSTITUTIONAL : Denies fever, chills, or sweats. Denies recent illness. EENT: Denies eye, ear, throat, or mouth pain or symptoms. Denies nasal or sinus congestion or discharge. Denies throat, tongue, or mouth swelling or difficulty swallowing. CARDIOVASCULAR: Denies chest pain. Denies palpitations or racing or irregular heart beat. Denies ankle edema. RESPIRATORY: Denies cough, cold, or chest congestion. Denies shortness of breath, difficulty breathing, or wheezing. GASTROINTESTINAL: Denies distention. Denies nausea, vomiting, or diarrhea. Denies blood in vomitus, stools, or per rectum. Denies black, tarry stools. Denies constipation. GENITOURINARY: Denies difficulty urinating, painful urination, burning, frequency, blood in urine, or discharge. FEMALE GENITOURINARY: Denies vaginal bleeding, heavy or abnormal periods, irregular periods. Denies vaginal discharge or odor. MUSCULOSKELETAL: Denies back or neck pain or stiffness. Denies joint pain or swelling. SKIN: Denies rash, lesions or sores. HEMATOLOGIC : Denies easy bruising or bleeding. LYMPHATIC: Denies swollen, enlarged glands. NEUROLOGICAL: Denies confusion or altered mental status. Denies passing out or loss of consciousness. Denies dizziness or lightheadedness. Denies headache. Denies weakness or paralysis or loss of use of either side. Denies problems with gait or speech. Denies sensory loss, numbness, or tingling. Denies seizures. PSYCHIATRIC: Denies anxiety or stress. Denies depression, suicidal ideation, or homicidal ideation. ALL OTHER SYSTEMS REVIEWED AND NEGATIVE. PHYSICAL EXAMINATION: GENERAL: Well-appearing, well-nourished and in no acute distress. Morbid obesity HEAD: Atraumatic, normocephalic. EYES: Pupils equal round and reactive to light, extraocular movements intact, conjunctiva are normal. ENT: Nares patent, oropharynx clear without exudates. Moist mucous membranes. NECK: Normal range of motion, supple without lymphadenopathy LUNGS: Breath sounds clear to auscultation bilaterally and equal. No wheezes rales or rhonchi. HEART: Regular rate and rhythm without murmurs ABDOMEN: Soft, nontender, nondistended abdomen. No guarding, no rebound. No masses appreciated. Examination of genitals-deferred Musculoskeletal: Normal range of motion, no pitting or edema. No cyanosis. Chronic wound on the right lower lateral leg. NEUROLOGICAL: Cranial nerves grossly intact. Normal speech, normal gait. Normal sensory, motor exams PSYCH: Normal mood, normal affect. SKIN: Warm, Dry, normal turgor, no rashes or lesions noted. Dictation was performed using [employer] voice recognition software TRAVEL OUTSIDE OF THE [place] IN LAST 30 DAYS: No - HPI Notes: Dictated - Related Data Allergies/Adverse Reactions: adhesive Allergy (Verified 11/08/17 15:00) Cephalosporins Allergy (Verified 11/08/17 15:00) Iodine and Iodide Containing Produc Allergy (Verified 11/08/17 15:00) sulfamethoxazole [From Bactrim] Allergy (Verified 11/08/17 15:00) trimethoprim [From Bactrim] Allergy (Verified 11/08/17 15:00) Past Medical History - Social History Smoking Status: Never Smoker Cigarette use (# per day): No Chew tobacco use (# tins/day): No Smoking Education Provided: No Frequency of alcohol use: Rare Drug Abuse: None Lives with: Family Family History: Reviewed & Not Pertinent, Hypertension - Past Medical History Cardiac Medical History: Reports: Hx Hypertension Denies: Hx Coronary Artery Disease, Hx Heart Attack Pulmonary Medical History: Reports: Hx Asthma, Hx Bronchitis Denies: Hx COPD, Hx Pneumonia Neurological Medical History: Denies: Hx Cerebrovascular Accident, Hx Seizures Endocrine Medical History: Reports: Hx Diabetes Mellitus Type 2 - Diet controlled Renal/ Medical History: Denies: Hx Peritoneal Dialysis Musculoskeletal Medical History: Denies Hx Arthritis Skin Medical History: Reports Hx Cellulitis Psychiatric Medical History: Reports: Hx Depression - from time to time pt stated Past Surgical History: Reports: Hx Section, Hx Cholecystectomy, Hx Orthopedic Surgery - foot, Hx Vascular Surgery - umbilical hernia - Immunizations Hx Diphtheria, Pertussis, Tetanus Vaccination: Yes Review of Systems - Review of Systems Notes: Dictated Physical Exam - Vital signs Vitals: Temp Pulse Resp BP Pulse Ox 98.3 F 110 H 16 140/79 H 94 11/08/17 15:08 11/08/17 15:08 11/08/17 15:08 11/08/17 15:08 11/08/17 15:08 - Notes Notes: Dictated Course - Vital Signs Vital signs: Temp Pulse Resp BP Pulse Ox 98.3 F 110 H 16 140/79 H 94 11/08/17 15:08 11/08/17 15:08 11/08/17 15:08 11/08/17 15:08 11/08/17 15:08 Discharge - Discharge Clinical Impression: Cellulitis of right lower extremity, Wound check, abscess Condition: Fair Disposition: HOME, SELF-CARE Instructions: Wound Infection ([facility]) Prescriptions: Cephalexin [Keflex] 500 mg PO TID #45 capsule Clindamycin HCl 150 mg PO Q6 #40 capsule Hydrocodone/Acetaminophen [Lorcet Hd 10-325 mg Tablet] 1 each PO TID PRN #20 tablet PRN Reason: Referrals: MARILY ALFONSO PA-C [Primary Care Provider] - Follow up as needed
== END 2017-11-08 15:28 | disposition home or self-care (01) ==
LOC: ER 14:59
DX: L03.115 Cellulitis of right lower limb (principal); L02.91 Cutaneous abscess, unspecified; I10 Essential (primary) hypertension; J45.909 Unspecified asthma, uncomplicated; E66.01 Morbid (severe) obesity due to excess calories; Z68.44 Body mass index [BMI] 60.0-69.9, adult; Z91.048 Other nonmedicinal substance allergy status; Z88.1 Allergy status to other antibiotic agents
CPT/HCPCS: 99282

== ENCOUNTER 2017-11-15 13:30 | Inpatient (IN) | payer MEDICAID ==
[2017-11-15 15:59] LABS: ABSOLUTE BASOPHILS # (AUTO) 0.1 10^3/uL (0.0-0.2); ABSOLUTE EOSINOPHILS # (AUTO) 0.2 10^3/uL (0.0-0.6); ABSOLUTE LYMPHOCYTES (AUTO) 1.9 10^3/uL (0.5-4.7); ABSOLUTE MONOCYTES (AUTO) 0.4 10^3/uL (0.1-1.4); ABSOLUTE NEUT (AUTO) 3.5 10^3/uL (1.7-8.2); BASOPHILS % (AUTO) 0.8 % (0-2); EOSINOPHILS % (AUTO) 3.8 % (0-6); HEMATOCRIT 31.4 % (36.0-47.0); HEMOGLOBIN 9.6 g/dL (12.0-15.5); LYMPHOCYTES % (AUTO) 31.2 % (13-45); MEAN CORPUSCULAR HEMOGLOBIN 22.8 pg (27.0-33.4); MEAN CORPUSCULAR HGB CONC 30.6 g/dL (32.0-36.0); MEAN CORPUSCULAR VOLUME 75 fl (80-97); MONOCYTES % (AUTO) 7.4 % (3-13); PLATELET COUNT 366 10^3/uL (150-450); RED CELL DISTRIBUTION WIDTH 19.2 % (11.5-14.0); SEGMENTED NEUTROPHILS % (AUTO) 56.8 % (42-78); TOTAL CELLS COUNTED % (AUTO) 100 %; WHITE BLOOD COUNT 6.1 10^3/uL (4.0-10.5)
[2017-11-15] MEDS ORDERED: AMPICILLIN SODIUM/SULBACTAM NA 3 GM in NORMAL SALINE 100 ML IV ONE (16:00)
[2017-11-15] MEDS: OXYCODONE-ACETAMINOPHEN 5-325 MG TABLET PO PRN (16:09)
[2017-11-15] MEDS: DEXTROSE 5%-1/2 NORMAL SALINE 1,000 ML IV PRN (16:10)
[2017-11-15 16:19] LABS: INTERNATIONAL RATION (INR) 2.41; PROTHROMBIN TIME 27.3 SEC (11.4-15.4)
[2017-11-15 16:20] LABS: PARTIAL THROMBOPLASTIN TIME 48.4 SEC (23.5-35.8)
[2017-11-15 16:23] LABS: ALANINE AMINOTRANSFERASE 21 U/L (9-52); ALBUMIN 3.3 g/dL (3.5-5.0); ALKALINE PHOSPHATASE 81 U/L (38-126); ANION GAP 8 (5-19); ASPARTATE AMINO TRANSFERASE 29 U/L (14-36); BILIRUBIN,DIRECT 0.3 mg/dL (0.0-0.4); BILIRUBIN,TOTAL 0.4 mg/dL (0.2-1.3); BLOOD UREA NITROGEN 11 mg/dL (7-20); CALCIUM 8.5 mg/dL (8.4-10.2); CARBON DIOXIDE 34 mmol/L (22-30); CHLORIDE 103 mmol/L (98-107); GLUCOSE 79 mg/dL (75-110); POTASSIUM 4.3 mmol/L (3.6-5.0); SODIUM 144.5 mmol/L (137-145); TOTAL PROTEIN 7.7 g/dL (6.3-8.2)
[2017-11-15 16:55] LABS: APPEARANCE,URINE SLIGHTLY-CLOUDY; BILIRUBIN,URINE NEGATIVE (NEGATIVE); COLOR,URINE YELLOW; GLUCOSE, URINE NEGATIVE (NEGATIVE); KETONES,URINE NEGATIVE (NEGATIVE); LEUKOCYTE ESTERASE,URINE NEGATIVE (NEGATIVE); NITRITE,URINE NEGATIVE (NEGATIVE); PROTEIN,URINE 30 mg/dL (NEGATIVE); URINE SPECIFIC GRAVITY 1.027
[2017-11-15] MEDS ORDERED: HYDROCODONE/ACETAMINOPHEN 10-325 MG TABLET PO PRN (21:47)
[2017-11-15] MEDS ORDERED: TRAMADOL HCL 50 MG TABLET PO PRN (21:47)
[2017-11-15] MEDS: AMPICILLIN SODIUM/SULBACTAM NA 3 GM in NORMAL SALINE 100 ML IV SCH (22:45)
[2017-11-16] MEDS ORDERED: HYDROXYZINE PAMOATE 25 MG CAPSULE PO ONE (00:15)
[2017-11-16] MEDS: OXYCODONE-ACETAMINOPHEN 5-325 MG TABLET PO PRN ×4 (02:13→20:51)
[2017-11-16] MEDS: AMPICILLIN SODIUM/SULBACTAM NA 3 GM in NORMAL SALINE 100 ML IV SCH ×4 (02:20→20:52)
[2017-11-16] MEDS ORDERED: ENOXAPARIN SODIUM INJ 40 MG/0.4 ML DISP.SYRIN SUBCUT SCH (10:00)
[2017-11-16] MEDS: SERTRALINE HCL 50 MG TABLET PO SCH (10:17)
[2017-11-16] MEDS: LORATADINE 10 MG TABLET PO SCH (10:17)
[2017-11-16] MEDS: SILVER SULFADIAZINE 1% CREAM 50 GM TP SCH (10:23)
[2017-11-16] MEDS: NYSTATIN TOPICAL POWDER 15 GM TOP SCH ×2 (11:07→17:42)
--- NOTE | 2017-11-16 16:59 | PDOC PROGRESS REPORT ---
Subjective Progress Note for:: 11/16/17 Subjective:: The patient is resting comfortably. Dressings are freshly changed. Reason For Visit: CELLULITIS,VENOUS ULCER Follow-up of present presenting right leg cellulitis and open ulceration. Physical Exam Vital Signs: Temp Pulse Resp BP Pulse Ox 98.1 F 97 18 124/71 99 11/16/17 16:00 11/16/17 16:00 11/16/17 16:00 11/16/17 16:00 11/16/17 16:00 Intake & Output 11/15/17 11/16/17 11/17/17 06:59 06:59 06:59 Intake Total 1752 100 Output Total 450 Balance 1302 100 Weight 188.5 kg Additional comments: Constitutional: Well-developed well-nourished lady, morbidly obese body habitus. No apparent acute distress. Respiratory: Normal respiratory effort. Lower extremities show normal range of movement. Pulses present noted to the dorsalis pedis artery. Capillary refill normal. No cyanosis noted. No muscle wasting noted. Ulcer in right leg as described previously, covered currently, freshly dressed. Results Laboratory Results: 11/15/17 15:50 11/15/17 15:50 11/15/17 16:19 Urine Color YELLOW Urine Appearance SLIGHTLY-CLOUDY Urine pH 6.0 Ur Specific [place] 1.027 Urine Protein 30 H Urine Glucose (UA) NEGATIVE Urine Ketones NEGATIVE Urine Blood MODERATE H Urine Nitrite NEGATIVE Ur Leukocyte Esterase NEGATIVE Urine WBC (Auto) 10 Urine RBC (Auto) 92 Assessment & Plan - Plan Summary Plan Summary: The patient appears to be responding to IV antibiotic and in care wound management. Progress is such that anticipate discharge in 24-48 hours if the progress continues.
[2017-11-16] MEDS: WARFARIN SODIUM 4 MG TABLET PO SCH (17:39)
[2017-11-16] MEDS ORDERED: (PENDING PHARMACY ID) (Warfarin Sodium 8 MG) PO SCH (18:00)
[2017-11-16] MEDS: HYDROXYZINE PAMOATE 25 MG CAPSULE PO SCH (20:51)
[2017-11-17] MEDS: OXYCODONE-ACETAMINOPHEN 5-325 MG TABLET PO PRN ×2 (02:46→23:30)
[2017-11-17] MEDS: AMPICILLIN SODIUM/SULBACTAM NA 3 GM in NORMAL SALINE 100 ML IV SCH ×4 (02:47→20:09)
[2017-11-17] MEDS: SERTRALINE HCL 50 MG TABLET PO SCH (09:01)
[2017-11-17] MEDS: LORATADINE 10 MG TABLET PO SCH (09:01)
[2017-11-17] MEDS: DEXTROSE 5%-1/2 NORMAL SALINE 1,000 ML IV PRN (09:02)
[2017-11-17] MEDS: NYSTATIN TOPICAL POWDER 15 GM TOP SCH ×2 (11:15→18:35)
[2017-11-17] MEDS: SILVER SULFADIAZINE 1% CREAM 50 GM TP SCH (11:16)
[2017-11-17] MEDS: WARFARIN SODIUM 4 MG TABLET PO SCH (18:35)
[2017-11-17] MEDS: HYDROXYZINE PAMOATE 25 MG CAPSULE PO SCH (20:09)
[2017-11-18] MEDS: AMPICILLIN SODIUM/SULBACTAM NA 3 GM in NORMAL SALINE 100 ML IV SCH ×4 (03:14→21:41)
[2017-11-18] MEDS: LORATADINE 10 MG TABLET PO SCH (09:12)
[2017-11-18] MEDS: SERTRALINE HCL 50 MG TABLET PO SCH (09:12)
[2017-11-18] MEDS: OXYCODONE-ACETAMINOPHEN 5-325 MG TABLET PO PRN ×2 (09:12→16:55)
[2017-11-18] MEDS: SILVER SULFADIAZINE 1% CREAM 50 GM TP SCH (09:21)
[2017-11-18] MEDS: NYSTATIN TOPICAL POWDER 15 GM TOP SCH ×2 (09:22→18:05)
[2017-11-18] MEDS: WARFARIN SODIUM 4 MG TABLET PO SCH (18:04)
[2017-11-18] MEDS: HYDROXYZINE PAMOATE 25 MG CAPSULE PO SCH (21:42)
[2017-11-19] MEDS: DEXTROSE 5%-1/2 NORMAL SALINE 1,000 ML IV PRN (00:31)
[2017-11-19] MEDS: AMPICILLIN SODIUM/SULBACTAM NA 3 GM in NORMAL SALINE 100 ML IV SCH ×3 (02:59→16:25)
[2017-11-19] MEDS: SERTRALINE HCL 50 MG TABLET PO SCH (09:05)
[2017-11-19] MEDS: OXYCODONE-ACETAMINOPHEN 5-325 MG TABLET PO PRN ×2 (09:05→13:03)
[2017-11-19] MEDS: LORATADINE 10 MG TABLET PO SCH (09:05)
[2017-11-19] MEDS: NYSTATIN TOPICAL POWDER 15 GM TOP SCH (10:18)
[2017-11-19] MEDS: SILVER SULFADIAZINE 1% CREAM 50 GM TP SCH (13:03)
[2017-11-19 13:28] VITALS: BP 126/73
--- NOTE | 2017-11-21 15:07 | PDOC H&P ---
General Chief Complaint: This patient is well known to me. She has been treated in the wound clinic for right lower extremity venous stasis ulceration with cellulitis on numerous occasions. Advancement in healing of proved remarkably difficult partially because of her comorbidities, particularly morbid obesity makes it very difficult for her to care for her wounds. 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 - Current Medications/Allergies Home Medications: Hydrocodone/Acetaminophen [Hydrocodone-Acetamin 10-325 mg] 1 tab PO Q12HP PRN Hydroxyzine Pamoate [Vistaril 25 mg Capsule] 25 mg PO QPM 11/15/17 Loratadine [Claritin 10 mg Tablet] 10 mg PO DAILY 11/15/17 Nystatin [Mycostatin Topical Powder 15 gm] 1 applic TOP BID 11/15/17 Sertraline HCl [Zoloft 50 mg Tablet] 50 mg PO DAILY 11/15/17 Tramadol HCl [Ultram 50 mg Tablet] 50 mg PO DAILYP PRN 11/15/17 Warfarin Sodium [Coumadin 4 mg Tablet] 8 mg PO QPM 11/15/17 Allergies/Adverse Reactions: adhesive Allergy (Verified 11/08/17 15:00) Cephalosporins Allergy (Verified 11/08/17 15:00) Iodine and Iodide Containing Produc Allergy (Verified 11/08/17 15:00) sulfamethoxazole [From Bactrim] Allergy (Verified 11/08/17 15:00) trimethoprim [From Bactrim] Allergy (Verified 11/08/17 15:00) Past Medical History Cardiac Medical History: Reports: Hypertension Denies: Coronary Artery Disease, Myocardial Infarction Pulmonary Medical History: Reports: Asthma, Bronchitis Denies: Chronic Obstructive Pulmonary Disease (COPD), Pneumonia Neurological Medical History: Denies: Seizures Endocrine Medical History: Reports: Diabetes Mellitus Type 2 - Diet controlled Musculoskeltal Medical History: Denies: Arthritis Psychiatric Medical History: Reports: Depression Hematology: Denies: Anemia Past Surgical History Past Surgical History: Reports: Section, Cholecystectomy, Orthopedic Surgery - foot, Vascular Surgery - umbilical hernia Family History Family History: Reviewed & Not Pertinent, Hypertension Parental Family History Reviewed: No Children Family History Reviewed: No Sibling(s) Family History Reviewed.: No Social History Smoking Status: Never Smoker Frequency of Alcohol Use: None Hx Recreational Drug Use: No Drugs: None Hx Prescription Drug Abuse: No Physical Exam Vital Signs: Temp Pulse Resp BP Pulse Ox 98.5 F 97 18 109/73 99 11/15/17 13:41 11/15/17 13:41 11/15/17 13:41 11/15/17 13:41 11/15/17 13:41 Intake & Output 11/14/17 11/15/17 11/16/17 06:59 06:59 06:59 Weight 188.694 kg Additional comments: Constitutional: Well-developed well-nourished lady, severe morbidly obese body habitus. No apparent acute distress. Eyes: Mucous membranes pink and moist, pupils equal and reactive to light. Conjunctiva normal. Cornea normal. ENT: Hearing grossly normal. External pinna normal to inspection. Teeth intact. Tongue normal to inspection. Chest: Normal to inspection. Respiratory breath sounds are present bilaterally, normal. Normal respiratory effort. Skin: Thickened, fragile, ulcerated skin of the right leg, laterally. Abdomen: Soft, nontender. Liver and spleen are not palpably enlarged. Bowel sounds are normal. No hernia noted. Surgical scars absent. Psychiatric: Judgment, memory, insight seem normal. Mood is pleasant and appropriate. Extremities: Upper extremities show normal range of movement. Pulses present noted to the radial arteries. Capillary refill normal. No cyanosis noted. No muscle wasting noted. Lower extremities show normal range of movement. Pulses present noted to the dorsalis pedis artery. Capillary refill normal. No cyanosis noted. No muscle wasting noted.Thickened, fragile, ulcerated skin of the right leg, laterally. Impression/Plan Plan: The patient is admitted for IV antibiotic and more intensive wound care. The hope is to advance treatment of the wound sufficiently that he can be taken over as an outpatient. Also to get rid of the present cellulitis. The latter has failed oral antibiotic as an outpatient. An expectation of 2-3 days hospitalization.
--- NOTE | 2017-11-21 15:09 | PDOC PROGRESS REPORT ---
Subjective Progress Note for:: 11/17/17 Subjective:: The patient is resting comfortably. Still has quite a bit of pain and in the ulcer. Dressing changes and IV antibiotic continue. Reason For Visit: CELLULITIS,CECELIA ULCER Physical Exam Vital Signs: Temp Pulse Resp BP Pulse Ox 98.3 F 96 20 120/62 93 11/17/17 16:14 11/17/17 16:14 11/17/17 16:14 11/17/17 16:14 11/17/17 16:14 Intake & Output 11/16/17 11/17/17 11/18/17 06:59 06:59 06:59 Intake Total 1752 1720 580 Output Total 450 Balance 1302 1720 580 Weight 188.5 kg 187.9 kg Additional comments: Constitutional: Well-developed well-nourished lady, morbidly obese body habitus. No apparent acute distress. Eyes: Mucous membranes pink and moist, pupils equal and reactive to light. Conjunctiva normal. Cornea normal. ENT: Hearing grossly normal. External pinna normal to inspection. Teeth intact. Tongue normal to inspection. Respiratory: Normal respiratory effort. Skin: Right leg ulcers noted Psychiatric: Judgment, memory, insight seem normal. Mood is pleasant and appropriate. Extremities: Upper extremities show normal range of movement. Pulses present noted to the radial arteries. Capillary refill normal. No cyanosis noted. No muscle wasting noted. Lower extremities show normal range of movement. Pulses present noted to the dorsalis pedis artery. Capillary refill normal. No cyanosis noted. No muscle wasting noted. Erythema and exudate around chronic ulcers in the right leg, extending to the subcutaneous tissue. Results Laboratory Results: 11/15/17 15:50 11/15/17 15:50 Assessment & Plan - Plan Summary Plan Summary: Continued need for inpatient IV antibiotic and wound care continue. The hope is to achieve sufficient results to discharge the patient in 24-48 hours.
--- NOTE | 2017-11-21 15:14 | PDOC DISCHARGE SUMMARY ---
General - Admit/Disc Date/PCP Admission Date/Primary Care Provider: 11/15/17 13:30 SHARAN HUSSEIN The patient has been hospitalized since 15 November cellulitis of the right leg surrounding chronic ulceration. She has been treated with IV antibiotic and daily wound care. Discharge Date: 11/19/17 - Additional Information Discharge Diet: As Tolerated Discharge Activity: Activity As Tolerated Home Medications: Hydrocodone/Acetaminophen [Hydrocodone-Acetamin 10-325 mg] 1 tab PO Q12HP PRN Hydroxyzine Pamoate [Vistaril 25 mg Capsule] 25 mg PO QPM 11/15/17 Loratadine [Claritin 10 mg Tablet] 10 mg PO DAILY 11/15/17 Nystatin [Mycostatin Topical Powder 15 gm] 1 applic TOP BID 11/15/17 Sertraline HCl [Zoloft 50 mg Tablet] 50 mg PO DAILY 11/15/17 Tramadol HCl [Ultram 50 mg Tablet] 50 mg PO DAILYP PRN 11/15/17 Warfarin Sodium [Coumadin 4 mg Tablet] 8 mg PO QPM 11/15/17 History of Present Illness History of Present Illness: CARLYLE SINHA is a 57 year old female Hospital Course Hospital Course: The patient was admitted and placed on IV antibiotic as well as daily wound care cleaning and application of topical medication. She has improved with less pain and less erythema and less drainage from the wound. At this point the patient has achieved maximal hospital benefit and will be discharged. She is to follow-up in the wound clinic on 22 November. Subsequently on Wednesday. She is to continue established wound care with daily showers, application of Silvadene and gauze and use of compression stockings. Her medications are to continue as per medication reconciliation sheet. No new medications are added. Physical Exam Vital Signs: Temp Pulse Resp BP Pulse Ox 98.7 F 95 20 126/73 H 99 11/19/17 13:24 11/19/17 13:24 11/19/17 13:24 11/19/17 13:24 11/19/17 13:24 Additional comments: Constitutional: Well-developed well-nourished lady, morbidly obese body habitus. No apparent acute distress. Eyes: Mucous membranes pink and moist, pupils equal and reactive to light. Conjunctiva normal. Cornea normal. ENT: Hearing grossly normal. External pinna normal to inspection. Teeth intact. Tongue normal to inspection. Respiratory: Normal respiratory effort. Skin: Right leg ulcer, geographic about 10 x 8 cm aggregate. Less erythema and drainage than previously. Psychiatric: Judgment, memory, insight seem normal. Mood is pleasant and appropriate. Extremities: Upper extremities show normal range of movement. Pulses present noted to the radial arteries. Capillary refill normal. No cyanosis noted. No muscle wasting noted. Lower extremities show normal range of movement. Pulses present noted to the dorsalis pedis artery. Capillary refill normal. No cyanosis noted. No muscle wasting noted.Right leg ulcer, geographic about 10 x 8 cm aggregate. Less erythema and drainage than previously. Results Laboratory Results: 11/15/17 15:50 11/15/17 15:50 Qualifiers - * PATIENT BEING DISCHARGED WITH ANY OF THE FOLLOWING DIAGNOSIS: No VTE patient discharged on overlapping Therapy?: Yes
== END 2017-11-19 18:00 | disposition home or self-care (01) | DRG 603 ==
LOC: 5 13:30 → 2N 11-16 04:45
PROVIDERS: ADMIT Surgery; ATTEND Surgery
DX: L03.115 Cellulitis of right lower limb (principal); L97.919 Non-pressure chronic ulcer of unspecified part of right lower leg with unspecified severity; Z68.45 Body mass index [BMI] 70 or greater, adult; E11.622 Type 2 diabetes mellitus with other skin ulcer; I87.2 Venous insufficiency (chronic) (peripheral); I10 Essential (primary) hypertension; J45.909 Unspecified asthma, uncomplicated; F32.9 Major depressive disorder, single episode, unspecified; E66.01 Morbid (severe) obesity due to excess calories
CPT/HCPCS: 36415; 80048; 80076; 81001; 85025; 85610; 85730; 87070; 87077; 87186; 87205; J0295; J3490

== ENCOUNTER 2018-02-09 16:01 | Emergency (ER) | payer MEDICAID ==
[2018-02-09 16:14] VITALS: BP 117/69
--- NOTE | 2018-02-09 17:14 | ER Document Report ---
ED Extremity Problem, Lower - General Chief Complaint: Leg Pain Stated Complaint: RIGHT LEG PAIN Time Seen by Provider: 02/09/18 17:10 Mode of Arrival: Ambulatory Notes: Chief complaint: Right lower leg wound History of complain:( obtained from----patient) 61 years old female with obesity and global right leg wound which is chronic, taken care of wound clinic presents today with pain. Taking hydrocodone twice daily as well as Ultram. No fever chills or other constitutional symptoms. She had a appointment with wound clinic last Wednesday. Onset: As above Duration: Long-standing Severity: Mild to moderate Quality: Wound infection Context: As above Exacerbating factor and relieving factors: As above REVIEW OF SYSTEMS: CONSTITUTIONAL : Denies fever, chills, or sweats. Denies recent illness. EENT: Denies eye, ear, throat, or mouth pain or symptoms. Denies nasal or sinus congestion or discharge. Denies throat, tongue, or mouth swelling or difficulty swallowing. CARDIOVASCULAR: Denies chest pain. Denies palpitations or racing or irregular heart beat. Denies ankle edema. RESPIRATORY: Denies cough, cold, or chest congestion. Denies shortness of breath, difficulty breathing, or wheezing. GASTROINTESTINAL: Denies distention. Denies nausea, vomiting, or diarrhea. Denies blood in vomitus, stools, or per rectum. Denies black, tarry stools. Denies constipation. GENITOURINARY: Denies difficulty urinating, painful urination, burning, frequency, blood in urine, or discharge. FEMALE GENITOURINARY: Denies vaginal bleeding, heavy or abnormal periods, irregular periods. Denies vaginal discharge or odor. MUSCULOSKELETAL: Denies back or neck pain or stiffness. Denies joint pain or swelling. SKIN: Denies rash, lesions or sores. HEMATOLOGIC : Denies easy bruising or bleeding. LYMPHATIC: Denies swollen, enlarged glands. NEUROLOGICAL: Denies confusion or altered mental status. Denies passing out or loss of consciousness. Denies dizziness or lightheadedness. Denies headache. Denies weakness or paralysis or loss of use of either side. Denies problems with gait or speech. Denies sensory loss, numbness, or tingling. Denies seizures. PSYCHIATRIC: Denies anxiety or stress. Denies depression, suicidal ideation, or homicidal ideation. ALL OTHER SYSTEMS REVIEWED AND NEGATIVE. PHYSICAL EXAMINATION: GENERAL: Well-appearing, well-nourished and in no acute distress. Morbid obesity HEAD: Atraumatic, normocephalic. EYES: Pupils equal round and reactive to light, extraocular movements intact, conjunctiva are normal. ENT: Nares patent, oropharynx clear without exudates. Moist mucous membranes. NECK: Normal range of motion, supple without lymphadenopathy LUNGS: Breath sounds clear to auscultation bilaterally and equal. No wheezes rales or rhonchi. HEART: Regular rate and rhythm without murmurs ABDOMEN: Soft, nontender, nondistended abdomen. No guarding, no rebound. No masses appreciated. Examination of genitals-deferred Musculoskeletal: Right lower lateral part of the leg has a chronic old wound. No surrounding erythema is not warm or tender to touch. NEUROLOGICAL: Cranial nerves grossly intact. Normal speech, normal gait. Normal sensory, motor exams PSYCH: Normal mood, normal affect. SKIN: Warm, Dry, normal turgor, no rashes or lesions noted. Dictation was performed using [employer] voice recognition software TRAVEL OUTSIDE OF THE [place] IN LAST 30 DAYS: No - HPI Notes: Dictated - Related Data Allergies/Adverse Reactions: adhesive Allergy (Verified 02/09/18 17:02) Cephalosporins Allergy (Verified 02/09/18 17:02) Iodine and Iodide Containing Produc Allergy (Verified 02/09/18 17:02) sulfamethoxazole [From Bactrim] Allergy (Verified 02/09/18 17:02) trimethoprim [From Bactrim] Allergy (Verified 02/09/18 17:02) Past Medical History - Social History Smoking Status: Never Smoker Chew tobacco use (# tins/day): No Frequency of alcohol use: None Lives with: Family Family History: Reviewed & Not Pertinent, Hypertension Patient has suicidal ideation: No Patient has homicidal ideation: No - Past Medical History Cardiac Medical History: Reports: Hx Hypertension Denies: Hx Coronary Artery Disease, Hx Heart Attack Pulmonary Medical History: Reports: Hx Asthma, Hx Bronchitis Denies: Hx COPD, Hx Pneumonia Neurological Medical History: Denies: Hx Cerebrovascular Accident, Hx Seizures Endocrine Medical History: Reports: Hx Diabetes Mellitus Type 2 - Diet controlled Renal/ Medical History: Denies: Hx Peritoneal Dialysis Musculoskeletal Medical History: Denies Hx Arthritis Skin Medical History: Reports Hx Cellulitis Psychiatric Medical History: Reports: Hx Depression Past Surgical History: Reports: Hx Section, Hx Cholecystectomy, Hx Orthopedic Surgery - foot, Hx Vascular Surgery - umbilical hernia - Immunizations Hx Diphtheria, Pertussis, Tetanus Vaccination: Yes Review of Systems - Review of Systems Notes: Dictated Physical Exam - Vital signs Vitals: Temp Pulse Resp BP Pulse Ox 98.1 F 100 20 117/69 95 02/09/18 16:12 02/09/18 16:12 02/09/18 16:12 02/09/18 16:12 02/09/18 16:12 - Notes Notes: Dictated Course - Vital Signs Vital signs: Temp Pulse Resp BP Pulse Ox 98.1 F 100 20 117/69 95 02/09/18 16:12 02/09/18 16:12 02/09/18 16:12 02/09/18 16:12 02/09/18 16:12 Discharge - Discharge Clinical Impression: Nonhealing ulcers rt lower leg Condition: Fair Disposition: HOME, SELF-CARE Instructions: Wound Infection ([facility]), Dressing Instructions for Open Wounds ([facility] ) Prescriptions: Hydrocodone/Acetaminophen [Hydrocodon-Acetaminophen 5-325] 1 each PO BID #10 tablet Referrals: TRISTIN JON FNP-C [Primary Care Provider] - Follow up as needed
== END 2018-02-09 17:15 | disposition home or self-care (01) ==
LOC: ER 16:01
DX: E11.622 Type 2 diabetes mellitus with other skin ulcer (principal); L97.919 Non-pressure chronic ulcer of unspecified part of right lower leg with unspecified severity; Z79.891 Long term (current) use of opiate analgesic; E66.01 Morbid (severe) obesity due to excess calories; I10 Essential (primary) hypertension; J45.909 Unspecified asthma, uncomplicated; Z91.048 Other nonmedicinal substance allergy status; Z88.1 Allergy status to other antibiotic agents
CPT/HCPCS: 99283

== ENCOUNTER 2018-06-29 12:53 | Inpatient (IN) | payer MEDICAID ==
--- NOTE | 2018-06-29 13:17 | ER Document Report ---
ED Medical Screen (RME) - General Chief Complaint: Abnormal Lab Results Stated Complaint: ABNORMAL LABS Time Seen by Provider: 06/29/18 13:11 Primary Care Provider: TRISTIN JON FNP-C [Primary Care Provider] - Follow up as needed Notes: 58-year-old female patient sent to the emergency room for transfusion. She had blood work done 2 days ago and showed a hemoglobin of 6. She states she has been feeling tired all the time and sleepy with insomnia. She is on Coumadin. She denies dark colored stool. She does have a chronic venous stasis ulcer. I have greeted and performed a rapid initial assessment of this patient. A comprehensive ED assessment and evaluation of the patient, analysis of test results and completion of the medical decision making process will be conducted by additional ED providers. TRAVEL OUTSIDE OF THE [place] IN LAST 30 DAYS: No - Related Data Allergies/Adverse Reactions: adhesive Allergy (Verified 06/29/18 12:55) Cephalosporins Allergy (Verified 06/29/18 12:55) Iodine and Iodide Containing Produc Allergy (Verified 06/29/18 12:55) sulfamethoxazole [From Bactrim] Allergy (Verified 06/29/18 12:55) trimethoprim [From Bactrim] Allergy (Verified 06/29/18 12:55) Past Medical History - Social History Chew tobacco use (# tins/day): No Frequency of alcohol use: None Drug Abuse: None Family history: None - Past Medical History Cardiac Medical History: Reports: Hx Hypertension Denies: Hx Coronary Artery Disease, Hx Heart Attack Pulmonary Medical History: Reports: Hx Asthma, Hx Bronchitis Denies: Hx COPD, Hx Pneumonia Neurological Medical History: Denies: Hx Cerebrovascular Accident, Hx Seizures Endocrine Medical History: Reports: Hx Diabetes Mellitus Type 2 - Diet controlled Renal/ Medical History: Denies: Hx Peritoneal Dialysis Musculoskeltal Medical History: Denies Hx Arthritis Skin Medical History: Reports Hx Cellulitis Psychiatric Medical History: Reports: Hx Depression Past Surgical History: Reports: Hx Section, Hx Cholecystectomy, Hx Orthopedic Surgery - foot, Hx Vascular Surgery - umbilical hernia - Immunizations Hx Diphtheria, Pertussis, Tetanus Vaccination: Yes History of Influenza Vaccine for 01/2017 - 06/2017 Season: No Physical Exam - Vital signs Vitals: Temp Pulse Resp BP Pulse Ox 98.3 F 105 H 24 H 163/58 H 85 L 06/29/18 13:07 03/20/19 13:07 06/29/18 13:07 06/29/18 13:07 06/29/18 13:07 Course - Vital Signs Vital signs: Temp Pulse Resp BP Pulse Ox 98.3 F 105 H 24 H 163/58 H 85 L 06/29/18 13:07 06/29/18 13:07 06/29/18 13:07 06/29/18 13:07 06/29/18 13:07 Doctor's Discharge - Discharge Referrals: TRISTIN JON, CONTACT OFFICER-C [Primary Care Provider] - Follow up as needed
[2018-06-29 14:44] LABS: ABSOLUTE EOSINOPHILS # (AUTO) 0.5 10^3/uL (0.0-0.6); ABSOLUTE MONOCYTES (AUTO) 0.4 10^3/uL (0.1-1.4); ABSOLUTE NEUT (AUTO) 5.4 10^3/uL (1.7-8.2); BASOPHILS % (AUTO) 0.2 % (0-2); EOSINOPHILS % (AUTO) 6.6 % (0-6); HEMATOCRIT 22.5 % (36.0-47.0); LYMPHOCYTES % (AUTO) 23.9 % (13-45); MEAN CORPUSCULAR HEMOGLOBIN 19.1 pg (27.0-33.4); MEAN CORPUSCULAR HGB CONC 28.4 g/dL (32.0-36.0); MEAN CORPUSCULAR VOLUME 67 fl (80-97); MONOCYTES % (AUTO) 4.4 % (3-13); PLATELET COUNT 365 10^3/uL (150-450); RED BLOOD COUNT 3.34 10^6/uL (3.72-5.28); RED CELL DISTRIBUTION WIDTH 20.5 % (11.5-14.0); SEGMENTED NEUTROPHILS % (AUTO) 64.9 % (42-78); TOTAL CELLS COUNTED % (AUTO) 100 %; WHITE BLOOD COUNT 8.3 10^3/uL (4.0-10.5)
[2018-06-29 14:45] LABS: INTERNATIONAL RATION (INR) 1.79; PROTHROMBIN TIME 21.7 SEC (11.4-15.4)
[2018-06-29 14:58] LABS: ALANINE AMINOTRANSFERASE 19 U/L (9-52); ALBUMIN 3.4 g/dL (3.5-5.0); ALKALINE PHOSPHATASE 103 U/L (38-126); ANION GAP 10 (5-19); ASPARTATE AMINO TRANSFERASE 22 U/L (14-36); BILIRUBIN,DIRECT 0.4 mg/dL (0.0-0.4); BILIRUBIN,TOTAL 0.4 mg/dL (0.2-1.3); BLOOD UREA NITROGEN 14 mg/dL (7-20); CALCIUM 8.5 mg/dL (8.4-10.2); CARBON DIOXIDE 33 mmol/L (22-30); CHLORIDE 96 mmol/L (98-107); CREATINE KINASE 29 U/L (30-135); GLUCOSE 120 mg/dL (75-110); POTASSIUM 4.1 mmol/L (3.6-5.0); SODIUM 139.1 mmol/L (137-145); TOTAL PROTEIN 7.6 g/dL (6.3-8.2)
[2018-06-29 15:05] LABS: APPEARANCE,URINE SLIGHTLY-CLOUDY; BILIRUBIN,URINE NEGATIVE (NEGATIVE); COLOR,URINE YELLOW; GLUCOSE, URINE NEGATIVE (NEGATIVE); KETONES,URINE NEGATIVE (NEGATIVE); LEUKOCYTE ESTERASE,URINE NEGATIVE (NEGATIVE); NITRITE,URINE NEGATIVE (NEGATIVE); PROTEIN,URINE NEGATIVE (NEGATIVE); UROBILINOGEN,URINE NEGATIVE mg/dL (<2.0)
[2018-06-29 15:12] LABS: HEMOGLOBIN 6.4 g/dL (12.0-15.5)
[2018-06-29 15:16] LABS: ANISOCYTOSIS 2+; HYPOCHROMASIA 2+; OVALOCYTES SLIGHT; PLATELET COMMENT ADEQUATE; POIKILOCYTOSIS SLIGHT; POLYCHROMASIA 1+; TARGET CELLS SLIGHT; TEAR DROP CELLS SLIGHT
[2018-06-29] MEDS ORDERED: NORMAL SALINE 250 ML IV PRN (15:37)
--- NOTE | 2018-06-29 15:44 | ER Document Report ---
ED General - General Chief Complaint: Abnormal Lab Results Stated Complaint: ABNORMAL LABS Time Seen by Provider: 06/29/18 13:11 Mode of Arrival: Ambulatory Information source: Patient Notes: Patient was advised to come here for a blood transfusion as her hemoglobin was around 6 per her primary doctor. Patient states that her doctor told her that she has iron deficiency anemia. Patient does report feeling tired, cold and having shortness of breath. Patient denies any active bleeding. Patient denies any blood in her stool or heavy menstrual bleeding. Patient denies any abnormal bruising. Patient does take Coumadin daily given a history of previous DVT and PE in the past. TRAVEL OUTSIDE OF THE [place] IN LAST 30 DAYS: No - HPI Onset: Yesterday Onset/Duration: Gradual Quality of pain: No pain Associated symptoms: Shortness of breath, Weakness. denies: Chest pain, Nonproductive cough, Productive cough, Fever, Headache, Nausea, Vomiting Exacerbated by: Denies Relieved by: Denies Similar symptoms previously: No Recently seen / treated by doctor: Yes - Related Data Allergies/Adverse Reactions: adhesive Allergy (Verified 06/29/18 12:55) Cephalosporins Allergy (Verified 06/29/18 12:55) Iodine and Iodide Containing Produc Allergy (Verified 06/29/18 12:55) sulfamethoxazole [From Bactrim] Allergy (Verified 06/29/18 12:55) trimethoprim [From Bactrim] Allergy (Verified 06/29/18 12:55) Past Medical History - General Information source: Patient - Social History Smoking Status: Never Smoker Chew tobacco use (# tins/day): No Frequency of alcohol use: None Drug Abuse: None Occupation: None Lives with: Alone Family History: Reviewed & Not Pertinent, Hypertension Patient has suicidal ideation: No Patient has homicidal ideation: No - Past Medical History Cardiac Medical History: Reports: Hx DVT, Hx Hypertension, Hx Pulmonary Embolism Denies: Hx Coronary Artery Disease, Hx Heart Attack Pulmonary Medical History: Reports: Hx Asthma, Hx Bronchitis Endocrine Medical History: Reports: Hx Diabetes Mellitus Type 2 - Diet controlled Renal/ Medical History: Denies: Hx Peritoneal Dialysis Musculoskeletal Medical History: Denies Hx Arthritis Skin Medical History: Reports Hx Cellulitis Psychiatric Medical History: Reports: Hx Depression Past Surgical History: Reports: Hx Section, Hx Cholecystectomy, Hx Orthopedic Surgery - foot, Hx Vascular Surgery - umbilical hernia - Immunizations Hx Diphtheria, Pertussis, Tetanus Vaccination: Yes Review of Systems - Review of Systems Constitutional: No symptoms reported. denies: Fever, Recent illness EENT: No symptoms reported Cardiovascular: No symptoms reported. denies: Chest pain, Palpitations Respiratory: Short of breath. denies: Cough Gastrointestinal: No symptoms reported. denies: Abdominal pain, Nausea, Vomiting Genitourinary: No symptoms reported Female Genitourinary: No symptoms reported Musculoskeletal: No symptoms reported. denies: Back pain Skin: Other - Chronic venous stasis ulcer to right leg Hematologic/Lymphatic: No symptoms reported Neurological/Psychological: No symptoms reported Physical Exam - Vital signs Vitals: Temp Pulse Resp BP Pulse Ox 98.3 F 105 H 24 H 163/58 H 85 L 06/29/18 13:07 06/29/18 13:07 06/29/18 13:07 06/29/18 13:07 06/29/18 13:07 - General General appearance: Appears well, Alert In distress: None - HEENT Head: Normocephalic Eyes: Normal Conjunctiva: Normal Nasal: Normal Pharynx: Normal Neck: Normal, Supple. No: Lymphadenopathy - Respiratory Respiratory status: Other - Patient with exertional dyspnea Chest status: Nontender Breath sounds: Normal. No: Rales, Rhonchi, Stridor, Wheezing Chest palpation: Normal - Cardiovascular Rhythm: Regular - Heart rate of 100 Heart sounds: S1 appreciated, S2 appreciated Murmur: No - Abdominal Inspection: Morbidly Obese Distension: No distension Bowel sounds: Normal Tenderness: Nontender - Back Back: Normal, Nontender - Extremities General upper extremity: Normal inspection, Normal ROM General lower extremity: Tender - Patient with dressing to right lower extremity, Edema - 2+ bilateral, Normal ROM - Neurological Neuro grossly intact: Yes Cognition: Normal Max Coma Scale Eye Opening: Spontaneous Max Coma Scale Verbal: Oriented Cle[place] Coma Scale Motor: Obeys Commands Cleves Coma Scale Total: 15 - Psychological Associated symptoms: Normal affect, Normal mood - Skin Skin Temperature: Warm Skin Moisture: Dry Skin Color: Pale Course - Re-evaluation Re-evalutation: 06/29/18 15:[address] Mcmanus regarding patient presentation and diagnostic evaluation, recommends transfusing patient 2 units in calling hospitalist for admission. Discussed plan of care with patient. Patient is agreeable with admission as well as transfusion at this time. Discussed risk with patient. Patient accepts these risks and is agreeable with a blood transfusion at this time. Consulted with hospitalist Dr. Carlson regarding need for admission, advises having patient admitted to the services of Lawanda High NP. Consulted with Lawanda High regarding patient presentation, agrees to accept patient to a medical telemetry floor for admission. - Vital Signs Vital signs: Temp Pulse Resp BP Pulse Ox 98.3 F 105 H 20 135/62 H 97 06/29/18 13:07 06/29/18 13:07 06/29/18 16:04 06/29/18 16:04 06/29/18 16:04 - Laboratory Result Diagrams: 06/29/18 14:15 06/29/18 14:15 Laboratory results interpreted by me: 06/29/18 06/29/18 06/29/18 14:15 14:15 14:15 RBC 3.34 L Hgb 6.4 L Hct 22.5 L MCV 67 L MCH 19.1 L MCHC 28.4 L RDW 20.5 H Eosinophils % 6.6 H PT 21.7 H Chloride 96 L Carbon Dioxide 33 H Glucose 120 H Creatine Kinase 29 L Albumin 3.4 L Crossmatch 06/29/18 14:15 RBC Hgb Hct MCV MCH MCHC RDW Eosinophils % PT Chloride Carbon Dioxide Glucose Creatine Kinase Albumin Crossmatch See Detail 06/29/18 16:45 Labs- Entire Visit 06/29/18 06/29/18 06/29/18 13:40 14:15 14:15 WBC 8.3 RBC 3.34 L Hgb 6.4 L Hct 22.5 L MCV 67 L MCH 19.1 L MCHC 28.4 L RDW 20.5 H Plt Count 365 Seg Neutrophils % 64.9 Lymphocytes % 23.9 Monocytes % 4.4 Eosinophils % 6.6 H Basophils % 0.2 Absolute Neutrophils 5.4 Absolute Lymphocytes 2.0 Absolute Monocytes 0.4 Absolute Eosinophils 0.5 Absolute Basophils 0.0 Platelet Comment ADEQUATE Polychromasia 1+ Hypochromasia 2+ Poikilocytosis SLIGHT Anisocytosis 2+ Microcytosis 2+ Target Cells SLIGHT Tear Drop Cells SLIGHT Ovalocytes SLIGHT PT INR Sodium 139.1 Potassium 4.1 Chloride 96 L Carbon Dioxide 33 H Anion Gap 10 BUN 14 Creatinine 0.68 Est GFR ( Amer) > 60 Est GFR (Non-Af Amer) > 60 Glucose 120 H Calcium 8.5 Magnesium 2.1 Total Bilirubin 0.4 Direct Bilirubin 0.4 Neonat Total Bilirubin Not Reportable Neonat Direct Bilirubin Not Reportable Neonat Indirect Bili Not Reportable AST 22 ALT 19 Alkaline Phosphatase 103 Creatine Kinase 29 L Total Protein 7.6 Albumin 3.4 L Urine Color YELLOW Urine Appearance SLIGHTLY-CLOUDY Urine pH 5.0 Ur Specific [place] 1.020 Urine Protein NEGATIVE Urine Glucose (UA) NEGATIVE Urine Ketones NEGATIVE Urine Blood NEGATIVE Urine Nitrite NEGATIVE Urine Bilirubin NEGATIVE Urine Urobilinogen NEGATIVE Ur Leukocyte Esterase NEGATIVE Urine WBC (Auto) 3 Urine RBC (Auto) 2 Urine Bacteria (Auto) TRACE Squamous Epi Cells Auto 6 Urine Mucus (Auto) RARE Urine Ascorbic Acid NEGATIVE POC Stool Occult Blood Blood Type Antibody Screen Crossmatch 06/29/18 06/29/18 06/29/18 14:15 14:15 14:43 WBC RBC Hgb Hct MCV MCH MCHC RDW Plt Count Seg Neutrophils % Lymphocytes % Monocytes % Eosinophils % Basophils % Absolute Neutrophils Absolute Lymphocytes Absolute Monocytes Absolute Eosinophils Absolute Basophils Platelet Comment Polychromasia Hypochromasia Poikilocytosis Anisocytosis Microcytosis Target Cells Tear Drop Cells Ovalocytes PT 21.7 H INR 1.79 Sodium Potassium Chloride Carbon Dioxide Anion Gap BUN Creatinine Est GFR ( Amer) Est GFR (Non-Af Amer) Glucose Calcium Magnesium Total Bilirubin Direct Bilirubin Neonat Total Bilirubin Neonat Direct Bilirubin Neonat Indirect Bili AST ALT Alkaline Phosphatase Creatine Kinase Total Protein Albumin Urine Color Urine Appearance Urine pH Ur Specific [place] Urine Protein Urine Glucose (UA) Urine Ketones Urine Blood Urine Nitrite Urine Bilirubin Urine Urobilinogen Ur Leukocyte Esterase Urine WBC (Auto) Urine RBC (Auto) Urine Bacteria (Auto) Squamous Epi Cells Auto Urine Mucus (Auto) Urine Ascorbic Acid POC Stool Occult Blood NEGATIVE Blood Type A NEGATIVE Antibody Screen NEGATIVE Crossmatch See Detail Discharge - Discharge Clinical Impression: Morbid obesity, History of DVT (deep vein thrombosis), Nonhealing ulcers rt lower leg Anemia Qualifiers: Anemia type: unspecified type Qualified Code(s): D64.9 - Anemia, unspecified Condition: Fair Disposition: ADMITTED OBSERVATION Admitting Provider: Hospitalist Unit Admitted: Telemetry
[2018-06-29] MEDS ORDERED: ACETAMINOPHEN 325 MG TABLET PO PRN (16:14)
[2018-06-29] MEDS ORDERED: ONDANSETRON 4 MG TAB.RAPDIS PO PRN (16:14)
[2018-06-29] MEDS: ENOXAPARIN SODIUM INJ 40 MG/0.4 ML DISP.SYRIN SUBCUT SCH (18:57)
[2018-06-29] MEDS: DOCUSATE SODIUM 100 MG CAPSULE PO SCH (19:35)
[2018-06-29] MEDS ORDERED: TRAMADOL HCL 50 MG TABLET PO PRN (22:30)
[2018-06-30 05:20] LABS: ABSOLUTE BASOPHILS # (AUTO) 0.1 10^3/uL (0.0-0.2); ABSOLUTE EOSINOPHILS # (AUTO) 0.5 10^3/uL (0.0-0.6); ABSOLUTE LYMPHOCYTES (AUTO) 2.5 10^3/uL (0.5-4.7); ABSOLUTE MONOCYTES (AUTO) 0.5 10^3/uL (0.1-1.4); ABSOLUTE NEUT (AUTO) 5.4 10^3/uL (1.7-8.2); ABSOLUTE RETICS # 0.057 10^6/uL (0.028-0.122); BASOPHILS % (AUTO) 0.7 % (0-2); EOSINOPHILS % (AUTO) 5.5 % (0-6); HEMATOCRIT 24.1 % (36.0-47.0); LYMPHOCYTES % (AUTO) 28.4 % (13-45); MEAN CORPUSCULAR HEMOGLOBIN 20.6 pg (27.0-33.4); MEAN CORPUSCULAR HGB CONC 30.2 g/dL (32.0-36.0); MEAN CORPUSCULAR VOLUME 68 fl (80-97); MONOCYTES % (AUTO) 5.5 % (3-13); PLATELET COUNT 313 10^3/uL (150-450); RED BLOOD COUNT 3.52 10^6/uL (3.72-5.28); RED CELL DISTRIBUTION WIDTH 21.2 % (11.5-14.0); SEGMENTED NEUTROPHILS % (AUTO) 59.9 % (42-78); TOTAL CELLS COUNTED % (AUTO) 100 %; WHITE BLOOD COUNT 8.9 10^3/uL (4.0-10.5)
[2018-06-30 05:22] LABS: INTERNATIONAL RATION (INR) 1.88; PARTIAL THROMBOPLASTIN TIME 38.5 SEC (23.5-35.8); PROTHROMBIN TIME 22.5 SEC (11.4-15.4)
[2018-06-30 05:28] LABS: HEMOGLOBIN 7.3 g/dL (12.0-15.5)
[2018-06-30 05:41] LABS: ALANINE AMINOTRANSFERASE 21 U/L (9-52); ALBUMIN 3.2 g/dL (3.5-5.0); ALKALINE PHOSPHATASE 98 U/L (38-126); ANION GAP 7 (5-19); ASPARTATE AMINO TRANSFERASE 20 U/L (14-36); BILIRUBIN,DIRECT 0.4 mg/dL (0.0-0.4); BILIRUBIN,TOTAL 0.6 mg/dL (0.2-1.3); BLOOD UREA NITROGEN 15 mg/dL (7-20); CALCIUM 8.6 mg/dL (8.4-10.2); CARBON DIOXIDE 33 mmol/L (22-30); CHLORIDE 98 mmol/L (98-107); GLUCOSE 95 mg/dL (75-110); IRON(TIBC) 38.2 ug/dL (37-170); PHOSPHORUS 3.7 mg/dL (2.5-4.5); POTASSIUM 4.4 mmol/L (3.6-5.0); TOTAL PROTEIN 7.6 g/dL (6.3-8.2); TRIGLYCERIDES 62 mg/dL (<150)
[2018-06-30 05:46] LABS: DIRECT LDL 73 mg/dL (<100)
[2018-06-30 06:41] LABS: FOLATE 5.87 ng/mL (>2.76)
[2018-06-30] MEDS: PANTOPRAZOLE SODIUM 20 MG TABLET.DR PO SCH (07:08)
--- NOTE | 2018-06-30 08:03 | PDOC H&P ---
History of Present Illness Admission Date/PCP: 06/29/18 16:14 SHARAN HUSSEIN Patient complains of: ANEMIA History of Present Illness: CARLYLE SINHA is a 58 year old female with a history of PE/DVT (on Coumadin), venous stasis ulcer, super morbid obesity. She presents to [facility] by direction of her PCP for low hemoglobin. The patient visited her PCP for a chief complaint of weakness and dizziness, getting progressively worse over the last few months. Laboratory studies reveal Hgb 6.3. The patient denies N/V/D or abdominal pain. No hematemasis or melena. The patient reports she takes approximately 6 naproxen tablets per day for 'aches and pains.' Upon arrival to ED, Laboratory studies reveal microcytic anemia. INR is only 1.79. Other laboratory studies relatively benign. EKG shows Sinus tachycardia, no ischemia or infarction. Upon assessment, the patient is pale, mucosa and conjunctiva are pale. The patient endorses chronic weakness and fatigue, as well as dizziness upon standing. Lungs CTA. S1S2. Chronic venous stasis ulcer to RLE, bandaged and wrapped. Plan to admit to hospitalist service for anemia workup. Transfuse 2 U PRBC. Anemia studies in AM. Serial CBCs. Patient may warrant an EGD. Past Medical History Cardiac Medical History: Reports: DVT, Hypertension, Pulmonary Embolism - COUMAD IN Denies: Coronary Artery Disease, Myocardial Infarction Pulmonary Medical History: Reports: Asthma, Bronchitis Denies: Chronic Obstructive Pulmonary Disease (COPD), Pneumonia Neurological Medical History: Denies: Seizures Endocrine Medical History: Reports: Diabetes Mellitus Type 2 - Diet controlled Musculoskeltal Medical History: Denies: Arthritis Psychiatric Medical History: Reports: Depression Hematology: Denies: Anemia Past Surgical History Past Surgical History: Reports: Section, Cholecystectomy, Orthopedic Surgery - foot, Vascular Surgery - umbilical hernia Social History Information Source: Patient Lives with: Alone Smoking Status: Never Smoker Frequency of Alcohol Use: None Hx Recreational Drug Use: No Drugs: None Hx Prescription Drug Abuse: No - Advance Directive Resuscitation Status: Full Code Family History Family History: Hypertension Parental Family History Reviewed: Yes Children Family History Reviewed: No Sibling(s) Family History Reviewed.: Unknown Medication/Allergy Home Medications: Loratadine [Claritin 10 mg Tablet] 10 mg PO DAILY 11/15/17 Nystatin [Mycostatin Topical Powder 15 gm] 1 applic TOP BID 11/15/17 Tramadol HCl [Ultram 50 mg Tablet] 50 mg PO DAILYP PRN 11/15/17 Warfarin Sodium [Coumadin 4 mg Tablet] 8 mg PO QPM 11/15/17 Hydrocodone/Acetaminophen [[place] 5-325 mg Tablet] 1 tab PO PRN PRN 06/29/18 Hydroxyzine HCl [Atarax 50 mg Tablet] 50 mg PO DAILY 06/29/18 Naproxen Sodium 3 cap PO BID 06/29/18 Sertraline HCl [Zoloft] 100 mg PO DAILY 06/29/18 Allergies/Adverse Reactions: adhesive Allergy (Verified 06/29/18 12:55) Cephalosporins Allergy (Verified 06/29/18 12:55) Iodine and Iodide Containing Produc Allergy (Verified 06/29/18 12:55) sulfamethoxazole [From Bactrim] Allergy (Verified 06/29/18 12:55) trimethoprim [From Bactrim] Allergy (Verified 06/29/18 12:55) Review of Systems All systems: reviewed and no additional remarkable complaints except as stated Physical Exam Vital Signs: Temp Pulse Resp BP Pulse Ox 97.8 F 100 19 140/60 H 94 06/30/18 01:30 06/30/18 02:00 06/30/18 01:30 06/30/18 01:30 06/30/18 01:30 Intake & Output 06/29/18 06/30/18 07/01/18 06:59 06:59 06:59 Intake Total 1700 Balance 1700 Weight 179 kg General appearance: PRESENT: morbidly obese Eye exam: PRESENT: conjunctiva pale, PERRLA Mouth exam: PRESENT: moist, tongue midline Respiratory exam: PRESENT: clear to auscultation tony, symmetrical, unlabored Cardiovascular exam: PRESENT: RRR Vascular exam: PRESENT: normal capillary refill GI/Abdominal exam: PRESENT: soft. ABSENT: distended, tenderness Rectal exam: PRESENT: deferred Extremities exam: PRESENT: full ROM Musculoskeletal exam: PRESENT: ambulatory - WITH CANE, full ROM Neurological exam: PRESENT: alert, awake, oriented to person, oriented to place, oriented to time, oriented to situation Psychiatric exam: PRESENT: appropriate affect Skin exam: PRESENT: dry, intact, pallor Results Laboratory Results: 06/30/18 04:35 06/30/18 04:35 06/29/18 06/29/18 06/29/18 13:40 14:15 14:15 WBC 8.3 RBC 3.34 L Hgb 6.4 L Hct 22.5 L MCV 67 L MCH 19.1 L MCHC 28.4 L RDW 20.5 H Plt Count 365 Seg Neutrophils % 64.9 Lymphocytes % 23.9 Monocytes % 4.4 Eosinophils % 6.6 H Basophils % 0.2 Absolute Neutrophils 5.4 Absolute Lymphocytes 2.0 Absolute Monocytes 0.4 Absolute Eosinophils 0.5 Absolute Basophils 0.0 Retic Count (auto) Absolute Retic Sodium 139.1 Potassium 4.1 Chloride 96 L Carbon Dioxide 33 H Anion Gap 10 BUN 14 Creatinine 0.68 Est GFR ( Amer) > 60 Est GFR (Non-Af Amer) > 60 Glucose 120 H Calcium 8.5 Phosphorus Magnesium 2.1 Iron TIBC % Saturation Ferritin Total Bilirubin 0.4 AST 22 ALT 19 Alkaline Phosphatase 103 Total Protein 7.6 Albumin 3.4 L Triglycerides Cholesterol LDL Cholesterol Direct VLDL Cholesterol HDL Cholesterol Vitamin B12 Folate TSH Urine Color YELLOW Urine Appearance SLIGHTLY-CLOUDY Urine pH 5.0 Ur Specific [place] 1.020 Urine Protein NEGATIVE Urine Glucose (UA) NEGATIVE Urine Ketones NEGATIVE Urine Blood NEGATIVE Urine Nitrite NEGATIVE Ur Leukocyte Esterase NEGATIVE Urine WBC (Auto) 3 Urine RBC (Auto) 2 Blood Type Antibody Screen 06/29/18 06/30/18 06/30/18 14:15 04:35 04:35 WBC 8.9 RBC 3.52 L Hgb 7.3 L Hct 24.1 L MCV 68 L MCH 20.6 L MCHC 30.2 L RDW 21.2 H Plt Count 313 Seg Neutrophils % 59.9 Lymphocytes % 28.4 Monocytes % 5.5 Eosinophils % 5.5 Basophils % 0.7 Absolute Neutrophils 5.4 Absolute Lymphocytes 2.5 Absolute Monocytes 0.5 Absolute Eosinophils 0.5 Absolute Basophils 0.1 Retic Count (auto) 1.60 Absolute Retic 0.057 Sodium 138.0 Potassium 4.4 Chloride 98 Carbon Dioxide 33 H Anion Gap 7 BUN 15 Creatinine 0.80 Est GFR ( Amer) > 60 Est GFR (Non-Af Amer) > 60 Glucose 95 Calcium 8.6 Phosphorus 3.7 Magnesium 2.2 Iron 38.2 TIBC 471 H % Saturation 8 Ferritin 12.80 Total Bilirubin 0.6 AST 20 ALT 21 Alkaline Phosphatase 98 Total Protein 7.6 Albumin 3.2 L Triglycerides 62 Cholesterol 129.20 LDL Cholesterol Direct 73 VLDL Cholesterol 12.0 HDL Cholesterol 40 Vitamin B12 351.0 Folate 5.87 TSH Urine Color Urine Appearance Urine pH Ur Specific [place] Urine Protein Urine Glucose (UA) Urine Ketones Urine Blood Urine Nitrite Ur Leukocyte Esterase Urine WBC (Auto) Urine RBC (Auto) Blood Type A NEGATIVE Antibody Screen NEGATIVE 06/30/18 04:35 WBC RBC Hgb Hct MCV MCH MCHC RDW Plt Count Seg Neutrophils % Lymphocytes % Monocytes % Eosinophils % Basophils % Absolute Neutrophils Absolute Lymphocytes Absolute Monocytes Absolute Eosinophils Absolute Basophils Retic Count (auto) Absolute Retic Sodium Potassium Chloride Carbon Dioxide Anion Gap BUN Creatinine Est GFR ( Amer) Est GFR (Non-Af Amer) Glucose Calcium Phosphorus Magnesium Iron TIBC % Saturation Ferritin Total Bilirubin AST ALT Alkaline Phosphatase Total Protein Albumin Triglycerides Cholesterol LDL Cholesterol Direct VLDL Cholesterol HDL Cholesterol Vitamin B12 Folate TSH 1.83 Urine Color Urine Appearance Urine pH Ur Specific [place] Urine Protein Urine Glucose (UA) Urine Ketones Urine Blood Urine Nitrite Ur Leukocyte Esterase Urine WBC (Auto) Urine RBC (Auto) Blood Type Antibody Screen 06/29/18 06/30/18 14:15 04:35 Creatine Kinase 29 L NT-Pro-B Natriuret Pep 137 Status: Imported from PACS Assessment and Plan - Diagnosis (1) Anemia Qualifiers: Anemia type: unspecified type Qualified Code(s): D64.9 - Anemia, unspecified Is this a current diagnosis for this admission?: Yes Plan: Unclear etiology Possible upper GI bleed Patient is on coumadin and takes naproxen everyday Hgb 6.3 upon admission - 2UPRBC in ED Serial CBCs Protonix IV BID If patient remains anemic, may need to consult surgery for EGD (2) Morbid obesity Is this a current diagnosis for this admission?: Yes Plan: weight management via diet (3) Chronic anticoagulation Is this a current diagnosis for this admission?: Yes Plan: History of DVT and PE On daily coumadin No evidence of bleeding Patient denies complications/recent med changes Check INR Coumadin on hold for now during anemia workup - Time Time Spent with patient: 15-24 minutes Medications reviewed and adjusted accordingly: Yes Anticipated discharge: Home - Inpatient Certification Based on my medical assessment, after consideration of the patient's comorbidities, presenting symptoms, or acuity I expect that the services needed warrant INPATIENT care.: Yes I certify that my determination is in accordance with my understanding of Medicare's requirements for reasonable and necessary INPATIENT services [42 CFR 412.3e].: Yes Medical Necessity: Risk of Complication if Not Cared For in Hospital - Plan Summary Plan Summary: TRANSFUSE PRBC. SERIAL CBC. ADMIT TO TELEMETRY. POSSIBLE EGD
[2018-06-30] MEDS: SERTRALINE HCL 50 MG TABLET PO SCH (09:58)
[2018-06-30] MEDS: LORATADINE 10 MG TABLET PO SCH (09:58)
[2018-06-30] MEDS: NYSTATIN TOPICAL POWDER 15 GM TOP SCH ×2 (09:58→17:57)
[2018-06-30] MEDS ORDERED: ENOXAPARIN SODIUM INJ 30 MG/0.3 ML DISP.SYRIN SUBCUT SCH (10:00)
[2018-06-30] MEDS: ENOXAPARIN SODIUM INJ 40 MG/0.4 ML DISP.SYRIN SUBCUT SCH (10:08)
[2018-06-30] MEDS: DOCUSATE SODIUM 100 MG CAPSULE PO SCH ×2 (10:09→17:56)
[2018-06-30] MEDS: TRAMADOL HCL 50 MG TABLET PO PRN ×2 (14:22→21:52)
[2018-06-30 20:49] LABS: HEMATOCRIT 28.4 % (36.0-47.0); HEMOGLOBIN 8.5 g/dL (12.0-15.5); MEAN CORPUSCULAR HEMOGLOBIN 20.9 pg (27.0-33.4); MEAN CORPUSCULAR VOLUME 70 fl (80-97); PLATELET COUNT 293 10^3/uL (150-450); RED BLOOD COUNT 4.07 10^6/uL (3.72-5.28); RED CELL DISTRIBUTION WIDTH 22.2 % (11.5-14.0); WHITE BLOOD COUNT 7.8 10^3/uL (4.0-10.5)
[2018-07-01] MEDS: PANTOPRAZOLE SODIUM 20 MG TABLET.DR PO SCH (06:02)
[2018-07-01 06:06] LABS: ABSOLUTE BASOPHILS # (AUTO) 0.1 10^3/uL (0.0-0.2); ABSOLUTE EOSINOPHILS # (AUTO) 0.5 10^3/uL (0.0-0.6); ABSOLUTE LYMPHOCYTES (AUTO) 2.6 10^3/uL (0.5-4.7); ABSOLUTE MONOCYTES (AUTO) 0.4 10^3/uL (0.1-1.4); ABSOLUTE NEUT (AUTO) 4.1 10^3/uL (1.7-8.2); BASOPHILS % (AUTO) 1.3 % (0-2); EOSINOPHILS % (AUTO) 6.4 % (0-6); HEMOGLOBIN 8.4 g/dL (12.0-15.5); LYMPHOCYTES % (AUTO) 33.4 % (13-45); MEAN CORPUSCULAR HEMOGLOBIN 21.2 pg (27.0-33.4); MEAN CORPUSCULAR HGB CONC 29.9 g/dL (32.0-36.0); MEAN CORPUSCULAR VOLUME 71 fl (80-97); MONOCYTES % (AUTO) 5.8 % (3-13); RED BLOOD COUNT 3.95 10^6/uL (3.72-5.28); RED CELL DISTRIBUTION WIDTH 22.7 % (11.5-14.0); SEGMENTED NEUTROPHILS % (AUTO) 53.1 % (42-78); TOTAL CELLS COUNTED % (AUTO) 100 %; WHITE BLOOD COUNT 7.7 10^3/uL (4.0-10.5)
[2018-07-01 06:54] LABS: ANION GAP 7 (5-19); BLOOD UREA NITROGEN 14 mg/dL (7-20); CALCIUM 8.7 mg/dL (8.4-10.2); CARBON DIOXIDE 33 mmol/L (22-30); CHLORIDE 99 mmol/L (98-107); GLUCOSE 92 mg/dL (75-110); POTASSIUM 4.5 mmol/L (3.6-5.0); SODIUM 139.1 mmol/L (137-145)
[2018-07-01 07:48] LABS: ANISOCYTOSIS 3+; HYPOCHROMASIA 2+; OVALOCYTES SLIGHT; PLATELET CLUMPS PRESENT; PLATELET COMMENT ADEQUATE; PLATELET COUNT 305 10^3/uL (150-450); PLATELET LARGE PRESENT; POIKILOCYTOSIS SLIGHT; POLYCHROMASIA 1+; SMUDGE CELLS PRESENT; TEAR DROP CELLS 1+
--- NOTE | 2018-07-01 08:45 | PDOC CONSULTATION ---
Consultation Consult Date: 07/01/18 Attending physician:: VILMA DIXON Consult reason:: Iron deficiency anemia History of Present Illness Admission Date/PCP: 06/29/18 16:14 SHARAN HUSSEIN Patient complains of: Fatigue, anemia History of Present Illness: CARLYLE SINHA is a 58 year old female with recent history of iron deficiency anemia, she came in with severe fatigue, anemia, she notes that she had bleeding about 2 months ago from a cut on her leg, she felt like she bled profusely, she impacted her self and then did not seek any medical attention, she denies any hematochezia, black tarry stool, hematemesis. Not having menorrhagia. Hemoglobin was in the 5-6 range, ferritin is only 12, patient was given 4 units of packed red blood cell with improvement to the 8 range. Feels much better today. Of note, she remembers of the last 5-6 years to have had colonoscopy, also EGD, not for anemia, and she was told that her colon was clear and she needs another colonoscopy in 10 years. She does not feel she was due for that yet. Past Medical History Cardiac Medical History: Reports: DVT, Hypertension, Pulmonary Embolism - COUMADIN Denies: Coronary Artery Disease, Myocardial Infarction Pulmonary Medical History: Reports: Asthma, Bronchitis Denies: Chronic Obstructive Pulmonary Disease (COPD), Pneumonia Neurological Medical History: Denies: Seizures Endocrine Medical History: Reports: Diabetes Mellitus Type 2 - Diet controlled Musculoskeltal Medical History: Denies: Arthritis Psychiatric Medical History: Reports: Depression Hematology: Denies: Anemia Past Surgical History Past Surgical History: Reports: Section, Cholecystectomy, Orthopedic Surgery - foot, Vascular Surgery - umbilical hernia, Other - Colonoscopy, EGD Social History Information Source: Patient Lives with: Alone Smoking Status: Never Smoker Frequency of Alcohol Use: None Hx Recreational Drug Use: No Drugs: None Hx Prescription Drug Abuse: No - Advance Directive Resuscitation Status: Full Code Family History Family History: Hypertension Parental Family History Reviewed: Yes Children Family History Reviewed: Yes Sibling(s) Family History Reviewed.: Yes Medication/Allergy Home Medications: Loratadine [Claritin 10 mg Tablet] 10 mg PO DAILY 11/15/17 Nystatin [Mycostatin Topical Powder 15 gm] 1 applic TOP BID 11/15/17 Tramadol HCl [Ultram 50 mg Tablet] 50 mg PO Q6HP PRN 11/15/17 Warfarin Sodium [Coumadin 4 mg Tablet] 8 mg PO QPM 11/15/17 Hydrocodone/Acetaminophen [[place] 5-325 mg Tablet] 1 tab PO PRN PRN 06/29/18 Hydroxyzine HCl [Atarax 50 mg Tablet] 50 mg PO PRN PRN 06/29/18 Naproxen Sodium 660 mg PO BID 06/29/18 Sertraline HCl [Zoloft] 100 mg PO DAILY 06/29/18 Allergies/Adverse Reactions: adhesive Allergy (Verified 06/29/18 12:55) Cephalosporins Allergy (Verified 06/29/18 12:55) Iodine and Iodide Containing Produc Allergy (Verified 06/29/18 12:55) sulfamethoxazole [From Bactrim] Allergy (Verified 06/29/18 12:55) trimethoprim [From Bactrim] Allergy (Verified 06/29/18 12:55) Review of Systems Constitutional: ABSENT: chills, fever(s), headache(s), weight gain, weight loss Eyes: ABSENT: visual disturbances Ears: ABSENT: hearing changes Cardiovascular: ABSENT: chest pain, dyspnea on exertion, edema, orthropnea, palpitations Respiratory: ABSENT: cough, hemoptysis Gastrointestinal: ABSENT: abdominal pain, constipation, diarrhea, hematemesis, hematochezia, nausea, vomiting Genitourinary: ABSENT: dysuria, hematuria Musculoskeletal: ABSENT: joint swelling Integumentary: ABSENT: rash, wounds Neurological: ABSENT: abnormal gait, abnormal speech, confusion, dizziness, focal weakness, syncope Psychiatric: ABSENT: anxiety, depression, homidical ideation, suicidal ideation Endocrine: ABSENT: cold intolerance, heat intolerance, polydipsia, polyuria Hematologic/Lymphatic: ABSENT: easy bleeding, easy bruising Physical Exam Vital Signs: Temp Pulse Resp BP Pulse Ox 98.3 F 101 H 16 125/58 L 95 06/30/18 23:39 06/30/18 23:39 06/30/18 23:39 06/30/18 23:39 06/30/18 23:39 Intake & Output 06/30/18 07/01/18 07/02/18 06:59 06:59 06:59 Intake Total 1700 1512 Output Total 300 Balance 1700 1212 Weight 179 kg 178.4 kg General appearance: PRESENT: no acute distress, well-developed, well-nourished Head exam: PRESENT: atraumatic, normocephalic Eye exam: PRESENT: conjunctiva pink, EOMI, PERRLA. ABSENT: scleral icterus Ear exam: PRESENT: normal external ear exam Mouth exam: PRESENT: moist, tongue midline Neck exam: ABSENT: carotid bruit, JVD, lymphadenopathy, thyromegaly Respiratory exam: PRESENT: clear to auscultation tony. ABSENT: rales, rhonchi, wheezes Cardiovascular exam: PRESENT: RRR. ABSENT: diastolic murmur, rubs, systolic murmur Pulses: PRESENT: normal dorsalis pedis pul Vascular exam: PRESENT: normal capillary refill GI/Abdominal exam: PRESENT: normal bowel sounds, soft. ABSENT: distended, guarding, mass, organolmegaly, rebound, tenderness Rectal exam: PRESENT: deferred Extremities exam: PRESENT: full ROM. ABSENT: calf tenderness, clubbing, pedal edema Neurological exam: PRESENT: alert, awake, oriented to person, oriented to place, oriented to time, oriented to situation, CN II-XII grossly intact. ABSENT: motor sensory deficit Psychiatric exam: PRESENT: appropriate affect, normal mood. ABSENT: homicidal ideation, suicidal ideation Skin exam: PRESENT: dry, intact, warm. ABSENT: cyanosis, rash Results Laboratory Results: 07/01/18 05:30 07/01/18 05:30 06/29/18 06/30/18 07/01/18 14:15 20:40 05:30 WBC 7.8 7.7 RBC 4.07 3.95 Hgb 8.5 L 8.4 L Hct 28.4 L 28.0 L MCV 70 L 71 L MCH 20.9 L 21.2 L MCHC 30.0 L 29.9 L RDW 22.2 H 22.7 H Plt Count 293 305 Seg Neutrophils % 53.1 Lymphocytes % 33.4 Monocytes % 5.8 Eosinophils % 6.4 H Basophils % 1.3 Absolute Neutrophils 4.1 Absolute Lymphocytes 2.6 Absolute Monocytes 0.4 Absolute Eosinophils 0.5 Absolute Basophils 0.1 Sodium Potassium Chloride Carbon Dioxide Anion Gap BUN Creatinine Est GFR ( Amer) Est GFR (Non-Af Amer) Glucose Calcium Magnesium Blood Type A NEGATIVE Antibody Screen NEGATIVE 07/01/18 05:30 WBC RBC Hgb Hct MCV MCH MCHC RDW Plt Count Seg Neutrophils % Lymphocytes % Monocytes % Eosinophils % Basophils % Absolute Neutrophils Absolute Lymphocytes Absolute Monocytes Absolute Eosinophils Absolute Basophils Sodium 139.1 Potassium 4.5 Chloride 99 Carbon Dioxide 33 H Anion Gap 7 BUN 14 Creatinine 0.73 Est GFR ( Amer) > 60 Est GFR (Non-Af Amer) > 60 Glucose 92 Calcium 8.7 Magnesium 2.2 Blood Type Antibody Screen 06/29/18 06/30/18 14:15 04:35 Creatine Kinase 29 L NT-Pro-B Natriuret Pep 137 Status: Image reviewed by me Assessment & Plan - Diagnosis (1) Anemia Qualifiers: Anemia type: iron deficiency Iron deficiency anemia type: other iron deficiency Qualified Code(s): D50.8 - Other iron deficiency anemias Is this a current diagnosis for this admission?: Yes Plan: Iron deficiency anemia, unknown cause. We do not usually see acute blood loss to that degree from a minor cut on the leg, but hard to say. We will see her back in 2 weeks time. She can discharge home today. We will set up endoscopies as an outpatient. We will plan for IV iron as an outpatient as well. - Time Time Spent: Greater than 70 Minutes
[2018-07-01] MEDS: SERTRALINE HCL 50 MG TABLET PO SCH (11:15)
[2018-07-01] MEDS: LORATADINE 10 MG TABLET PO SCH (11:15)
[2018-07-01] MEDS: ENOXAPARIN SODIUM INJ 40 MG/0.4 ML DISP.SYRIN SUBCUT SCH (11:16)
[2018-07-01] MEDS: DOCUSATE SODIUM 100 MG CAPSULE PO SCH (11:16)
[2018-07-01] MEDS: NYSTATIN TOPICAL POWDER 15 GM TOP SCH (11:17)
[2018-07-01 13:12] VITALS: BP 140/60
--- NOTE | 2018-07-02 15:12 | PDOC PROGRESS REPORT ---
Subjective Progress Note for:: 06/30/18 Subjective:: The patient is receiving 2 additional units of packed red blood cells today. I have asked hematology to assess the patient as well. She does report feeling better. Reason For Visit: ANEMIA Physical Exam Vital Signs: Temp Pulse Resp BP Pulse Ox 98.2 F 92 16 122/61 96 06/30/18 16:45 06/30/18 16:45 06/30/18 16:45 06/30/18 16:45 06/30/18 16:45 Intake & Output 06/29/18 06/30/18 07/01/18 06:59 06:59 06:59 Intake Total 1700 655 Output Total 300 Balance 1700 355 Weight 179 kg 179 kg General appearance: PRESENT: no acute distress, cooperative, morbidly obese - BMI 67.5, well-developed Head exam: PRESENT: atraumatic, normocephalic Eye exam: PRESENT: conjunctiva pale. ABSENT: scleral icterus Ear exam: PRESENT: normal external ear exam Mouth exam: PRESENT: moist, tongue midline Teeth exam: ABSENT: edentulous Neck exam: PRESENT: other - Extremely large neck. Respiratory exam: PRESENT: clear to auscultation tony, decreased breath sounds, symmetrical. ABSENT: rales, rhonchi, wheezes Cardiovascular exam: PRESENT: RRR, +S1, +S2, systolic murmur - 2/6 GI/Abdominal exam: PRESENT: normal bowel sounds, soft, other - Markedly pendulous abdomen. ABSENT: tenderness Rectal exam: PRESENT: deferred Extremities exam: PRESENT: +1 edema, other - Right leg in a multilayer compression wrap. Left leg with an absorbent dressing covering stasis ulcers. Neurological exam: PRESENT: alert, awake, oriented to person, oriented to place, oriented to time, oriented to situation, CN II-XII grossly intact Psychiatric exam: PRESENT: appropriate affect, normal mood. ABSENT: agitated, anxious Focused psych exam: ABSENT: delusional, restlessness Skin exam: PRESENT: other - There is a fairly healed and dry exposed stasis ulcer on the medial aspect just above the right malleolus. There is no active weeping. There is a circumferential absorbent dressing over the right calf. I did not take the dressing down. The patient reports ongoing drainage from stasis ulcers. Results Laboratory Results: 06/30/18 04:35 06/30/18 04:35 06/29/18 06/30/18 06/30/18 14:15 04:35 04:35 WBC 8.9 RBC 3.52 L Hgb 7.3 L Hct 24.1 L MCV 68 L MCH 20.6 L MCHC 30.2 L RDW 21.2 H Plt Count 313 Seg Neutrophils % 59.9 Lymphocytes % 28.4 Monocytes % 5.5 Eosinophils % 5.5 Basophils % 0.7 Absolute Neutrophils 5.4 Absolute Lymphocytes 2.5 Absolute Monocytes 0.5 Absolute Eosinophils 0.5 Absolute Basophils 0.1 Retic Count (auto) 1.60 Absolute Retic 0.057 Sodium 138.0 Potassium 4.4 Chloride 98 Carbon Dioxide 33 H Anion Gap 7 BUN 15 Creatinine 0.80 Est GFR ( Amer) > 60 Est GFR (Non-Af Amer) > 60 Glucose 95 Calcium 8.6 Phosphorus 3.7 Magnesium 2.2 Iron 38.2 TIBC 471 H % Saturation 8 Ferritin 12.80 Total Bilirubin 0.6 AST 20 ALT 21 Alkaline Phosphatase 98 Total Protein 7.6 Albumin 3.2 L Triglycerides 62 Cholesterol 129.20 LDL Cholesterol Direct 73 VLDL Cholesterol 12.0 HDL Cholesterol 40 Vitamin B12 351.0 Folate 5.87 TSH Blood Type A NEGATIVE Antibody Screen NEGATIVE 06/30/18 04:35 WBC RBC Hgb Hct MCV MCH MCHC RDW Plt Count Seg Neutrophils % Lymphocytes % Monocytes % Eosinophils % Basophils % Absolute Neutrophils Absolute Lymphocytes Absolute Monocytes Absolute Eosinophils Absolute Basophils Retic Count (auto) Absolute Retic Sodium Potassium Chloride Carbon Dioxide Anion Gap BUN Creatinine Est GFR ( Amer) Est GFR (Non-Af Amer) Glucose Calcium Phosphorus Magnesium Iron TIBC % Saturation Ferritin Total Bilirubin AST ALT Alkaline Phosphatase Total Protein Albumin Triglycerides Cholesterol LDL Cholesterol Direct VLDL Cholesterol HDL Cholesterol Vitamin B12 Folate TSH 1.83 Blood Type Antibody Screen 06/29/18 06/30/18 14:15 04:35 Creatine Kinase 29 L NT-Pro-B Natriuret Pep 137 Assessment and Plan - Diagnosis (1) Anemia Qualifiers: Anemia type: iron deficiency Iron deficiency anemia type: other iron deficiency Qualified Code(s): D50.8 - Other iron deficiency anemias Is this a current diagnosis for this admission?: Yes Plan: Patient will be seen by hematology today. She received 2 units of packed red blood cells yesterday but her hemoglobin was still below 8.3. It had risen above 7 with 2 units of packed cells. I would have expected a larger increase. I have ordered 2 more units of packed red blood cells for today. I have asked hematology to see the patient as well. Her primary care provider checks her hemoglobin monthly. Further investigation as an outpatient. A follow-up appointment with hematology was scheduled prior to discharge. (2) Chronic anticoagulation Is this a current diagnosis for this admission?: Yes Plan: As noted below the patient will resume outpatient monitoring with her primary care provider. There is been no overt evidence of bleeding. She is at risk utilizing NSAIDs and warfarin at the same time. (3) Edema, lower extremity Is this a current diagnosis for this admission?: Yes Plan: The patient is being seen at the wound clinic weekly and has home health to help manage her wounds. Because of her morbid obesity and venous insufficiency the patient has chronic lower extremity edema with venous stasis ulcers. There is a multilayer compression wrap in place on the right leg. This dressing was not changed during her brief hospitalization. There is an absorptive dressing on the left leg for a weeping area. If it is saturated or if the patient reports a missing scheduled dressing change we will accommodate as best as possible. (4) Nonhealing ulcers rt lower leg Is this a current diagnosis for this admission?: Yes Plan: Multiple ulcers on lower extremities. Multilayer compression wrap on the right. There is a fairly well-healed ulceration just above the left medial malleolus. The patient reports that a vein was at the base of the ulcer and was injured. She reports profuse bleeding. She states her slipper filled with blood and she was tracking blood all over the house. A marked blood loss like that certainly could reduce her hemoglobin below 7. She will continue to follow-up with the wound clinic and receive home health for wound care as well. (5) History of DVT (deep vein thrombosis) Is this a current diagnosis for this admission?: Yes Plan: I believe she has a history of DVT and pulmonary embolus. She is on warfarin therapy. She will return to the warfarin clinic for scheduled testing. I did not adjust her dose. As noted there is risk involved with warfarin and nonsteroidal anti-inflammatory use. I will defer to her primary care provider for any counseling. (6) Morbid obesity Is this a current diagnosis for this admission?: Yes Plan: Body mass index of 67.5. At this stage of obesity there are serious health implications. It certainly is a major cause of her chronic lower extremity edema with recurrent stasis ulcers and stasis dermatitis. It is also a significant cardiac risk factor. I asked the patient if she had ever been assessed for sleep apnea. Unfortunately she has not. I will defer to her primary care physician but it is likely that the patient has obstructive sleep apnea as well. Encourage they specifically directed diet program for weight loss. She could also consider bariatric surgery. (7) Depression Qualifiers: Depression Type: unspecified Qualified Code(s): F32.9 - Major depressive disorder, single episode, unspecified Is this a current diagnosis for this admission?: Yes Plan: Continue sertraline to avoid abrupt cessation with resultant adverse effect. (8) Morbid obesity with body mass index (BMI) greater than or equal to 50 Is this a current diagnosis for this admission?: Yes Plan: Encourage diet and weight loss (9) BMI 60.0-69.9, adult Is this a current diagnosis for this admission?: Yes Plan: As above - Time Time Spent with patient: 25-34 minutes Medications reviewed and adjusted accordingly: Yes Anticipated discharge: Home Within: within 48 hours
--- NOTE | 2018-07-02 15:26 | PDOC DISCHARGE SUMMARY ---
General - Admit/Disc Date/PCP Admission Date/Primary Care Provider: 06/29/18 16:14 TRISTIN JON, [employer] Discharge Date: 07/01/18 - Discharge Diagnosis (1) Anemia Is this a current diagnosis for this admission?: Yes Summary: The patient's hemoglobin is above 8.0. Again I would have expected a more significant increase in hemoglobin after 2 units of packed red blood cells. She was seen by hematology. She will have a clinic appointment scheduled in several weeks. Her primary care provider will continue to monitor her hemoglobin. The current working therapy is iron deficiency. Additional information to be determined as an outpatient. (2) History of DVT (deep vein thrombosis) Is this a current diagnosis for this admission?: Yes Summary: Patient has a history of DVT. She remains on warfarin therapy. (3) Chronic anticoagulation Is this a current diagnosis for this admission?: Yes Summary: The warfarin was held for 2 days. Being that there is no obvious source of blood loss her warfarin was resumed. She is at high risk for recurrent thrombus formation if not anticoagulated. There is a risk of complication with nonsteroidal anti-inflammatory medications and warfarin causing a higher risk of bleeding. I will defer to hematology and her primary care provider to address risk benefits scenarios and any changes in the treatment plan. (4) BMI 60.0-69.9, adult Is this a current diagnosis for this admission?: Yes Summary: As below (5) Morbid obesity with body mass index (BMI) greater than or equal to 50 Is this a current diagnosis for this admission?: Yes Summary: Her level of obesity poses markedly increased risk for health issues. It certainly contributes to venous insufficiency and chronic lower extremity edema with stasis dermatitis and nonhealing ulcers. I asked her if she had ever been tested for obstructive sleep apnea. She has not. I suggested she discuss this with her primary care provider. It also poses significant cardiac risk. Consider a specifically directed weight loss program or possibly bariatric surgery. (6) Depression Is this a current diagnosis for this admission?: Yes Summary: The patient was maintained on her sertraline to avoid symptoms of abrupt cessation. (7) Edema, lower extremity Is this a current diagnosis for this admission?: Yes Summary: This is a chronic and long-standing problem. It has direct correlation with her obesity as well. She does have a multilayer compression wrap on her right leg. There was an absorptive dressing on the left to trap serous drainage. She will return to her weekly visits at the wound care center and home health services have been ordered to resume after discharge. (8) Nonhealing ulcers rt lower leg Is this a current diagnosis for this admission?: Yes Summary: Continue weekly visits at the wound care center as well as home health visits for wound care. - Additional Information Resuscitation Status: Full Code Discharge Diet: Regular Discharge Activity: Activity As Tolerated Home Medications: Loratadine [Claritin 10 mg Tablet] 10 mg PO DAILY 11/15/17 Nystatin [Mycostatin Topical Powder 15 gm] 1 applic TOP BID 11/15/17 Tramadol HCl [Ultram 50 mg Tablet] 50 mg PO Q6HP PRN 11/15/17 Warfarin Sodium [Coumadin 4 mg Tablet] 8 mg PO QPM 11/15/17 Hydrocodone/Acetaminophen [[place] 5-325 mg Tablet] 1 tab PO PRN PRN 06/29/18 Hydroxyzine HCl [Atarax 50 mg Tablet] 50 mg PO PRN PRN 06/29/18 Naproxen Sodium 660 mg PO BID 06/29/18 Sertraline HCl [Zoloft] 100 mg PO DAILY 06/29/18 Acetaminophen [Tylenol 325 mg Tablet] 650 mg PO Q4HP PRN tablet 07/01/18 History of Present Illness Patient complains of: Anemia History of Present Illness: CARLYLE SINHA is a 58 year old female with a history of severe anemia. Her primary care provider checks her hemoglobin monthly. The most recent test revealed hemoglobin less than 7.0. The patient was instructed to go to the emergency department. Her hemoglobin was confirmed. She was referred to the hospitalist service for transfusion therapy. Hospital Course Hospital Course: The patient had an unremarkable hospital course. Surprisingly the first 2 units of packed red blood cells only raised her hemoglobin by 0.9 mg/dL. 2 additional units were ordered. These raised her hemoglobin by 1.2 g/dL. Her hemoglobin remained above 8.0 on 2 consecutive tests. The patient was seen by hematology as well. Physical Exam Vital Signs: Temp Pulse Resp BP Pulse Ox 98.1 F 96 16 145/70 H 90 L 07/01/18 08:00 07/01/18 08:00 07/01/18 08:00 07/01/18 08:00 07/01/18 08:00 Intake & Output 06/30/18 07/01/18 07/02/18 06:59 06:59 06:59 Intake Total 1700 1512 Output Total 300 Balance 1700 1212 Weight 179 kg 178.4 kg General appearance: PRESENT: no acute distress, cooperative, morbidly obese, well-developed Head exam: PRESENT: atraumatic, normocephalic Eye exam: PRESENT: conjunctiva pale. ABSENT: scleral icterus Ear exam: PRESENT: normal external ear exam Mouth exam: PRESENT: neck supple - Very large neck Respiratory exam: PRESENT: clear to auscultation tony, decreased breath sounds - Due to body habitus., symmetrical. ABSENT: rales, rhonchi, wheezes Cardiovascular exam: PRESENT: RRR, +S1, +S2, systolic murmur - 2/6 Vascular exam: PRESENT: pallor GI/Abdominal exam: PRESENT: normal bowel sounds, soft, other - Markedly pendulous abdomen. ABSENT: tenderness Rectal exam: PRESENT: deferred Gentrourinary exam: ABSENT: indwelling catheter Extremities exam: PRESENT: pedal edema Neurological exam: PRESENT: alert, awake, oriented to person, oriented to place, oriented to time, oriented to situation, CN II-XII grossly intact Psychiatric exam: PRESENT: appropriate affect, normal mood. ABSENT: agitated, anxious Focused psych exam: ABSENT: delusional, restlessness Skin exam: PRESENT: other - Multilayer compression wrap on right leg. Absorptive ramp circumferentially applied on left lower leg. Almost completely healed stasis ulcer proximal to the left medial malleolus. Results Laboratory Results: 07/01/18 05:30 07/01/18 05:30 06/29/18 06/30/18 07/01/18 14:15 20:40 05:30 WBC 7.8 7.7 RBC 4.07 3.95 Hgb 8.5 L 8.4 L Hct 28.4 L 28.0 L MCV 70 L 71 L MCH 20.9 L 21.2 L MCHC 30.0 L 29.9 L RDW 22.2 H 22.7 H Plt Count 293 305 Seg Neutrophils % 53.1 Lymphocytes % 33.4 Monocytes % 5.8 Eosinophils % 6.4 H Basophils % 1.3 Absolute Neutrophils 4.1 Absolute Lymphocytes 2.6 Absolute Monocytes 0.4 Absolute Eosinophils 0.5 Absolute Basophils 0.1 Sodium Potassium Chloride Carbon Dioxide Anion Gap BUN Creatinine Est GFR ( Amer) Est GFR (Non-Af Amer) Glucose Calcium Magnesium Blood Type A NEGATIVE Antibody Screen NEGATIVE 07/01/18 05:30 WBC RBC Hgb Hct MCV MCH MCHC RDW Plt Count Seg Neutrophils % Lymphocytes % Monocytes % Eosinophils % Basophils % Absolute Neutrophils Absolute Lymphocytes Absolute Monocytes Absolute Eosinophils Absolute Basophils Sodium 139.1 Potassium 4.5 Chloride 99 Carbon Dioxide 33 H Anion Gap 7 BUN 14 Creatinine 0.73 Est GFR ( Amer) > 60 Est GFR (Non-Af Amer) > 60 Glucose 92 Calcium 8.7 Magnesium 2.2 Blood Type Antibody Screen 06/29/18 06/30/18 14:15 04:35 Creatine Kinase 29 L NT-Pro-B Natriuret Pep 137 Qualifiers - * PATIENT BEING DISCHARGED WITH ANY OF THE FOLLOWING DIAGNOSIS: No Plan Discharge Plan: Follow-up with primary care provider and hematology. Resume warfarin monitoring by primary care provider. Time Spent: Greater than 30 Minutes
== END 2018-07-01 14:48 | disposition home health service (06) | DRG 812 ==
LOC: ER 12:53 → EH 15:58 → OBSVTOIN 16:14 → 5 18:47
PROVIDERS: ADMIT Internal Medicine; ATTEND Internal Medicine
PROC: 30233N1 Transfusion of Nonautologous Red Blood Cells into Peripheral Vein, Percutaneous Approach (ICD-10-PCS; principal; 2018-06-29)
PROC: 30233N1 Transfusion of Nonautologous Red Blood Cells into Peripheral Vein, Percutaneous Approach (ICD-10-PCS; 2018-06-30)
DX: D50.8 Other iron deficiency anemias (principal); Z68.44 Body mass index [BMI] 60.0-69.9, adult; I83.218 Varicose veins of right lower extremity with both ulcer of other part of lower extremity and inflammation; L97.819 Non-pressure chronic ulcer of other part of right lower leg with unspecified severity; E66.01 Morbid (severe) obesity due to excess calories; Z86.718 Personal history of other venous thrombosis and embolism; Z79.01 Long term (current) use of anticoagulants; L98.499 Non-pressure chronic ulcer of skin of other sites with unspecified severity; Z86.711 Personal history of pulmonary embolism; E11.9 Type 2 diabetes mellitus without complications; F32.9 Major depressive disorder, single episode, unspecified; Z90.49 Acquired absence of other specified parts of digestive tract; Z82.49 Family history of ischemic heart disease and other diseases of the circulatory system; Z88.2 Allergy status to sulfonamides; Z88.1 Allergy status to other antibiotic agents; Z88.8 Allergy status to other drugs, medicaments and biological substances
CPT/HCPCS: 36415; 36430; 80048; 80053; 80061; 81001; 82550; 82607; 82728; 82746; 83010; 83036; 83540; 83550; 83615; 83735; 83880; 84100; 84443; 85025; 85027; 85045; 85610; 85730; 86850; 86900; 86901; 86920; 99284; J3490; P9016

== ENCOUNTER 2019-06-21 15:22 | Observation (INO) | payer SELFPAY ==
--- NOTE | 2019-06-21 16:19 | ER Document Report ---
ED Medical Screen (RME) - General Stated Complaint: RIGHT LEG POSSIBLE INFECTION Time Seen by Provider: 06/21/19 16:06 Primary Care Provider: TRISTIN JON FNP-C [Primary Care Provider] - Follow up as needed Mode of Arrival: Ambulatory Notes: This 59-year-old female morbidly obese presents with cellulitis and wounds to bilateral legs. She reports she has had the wounds for the past 2 years. She is treated by cardiac wound care. She reports that the wounds are getting worse smelling worse more drainage. She was instructed to come here by her primary care provider for IV antibiotics. She denies fever vomiting diarrhea. Patient O2 sat 89%. She reports she is always low. She denies history of COPD. Reports history of bronchitis. Patient speaking in a clear voice no shortness of breath. I have greeted and performed a rapid initial assessment of this patient. A comprehensive ED assessment and evaluation of the patient, analysis of test results and completion of the medical decision making process will be conducted by additional ED providers. TRAVEL OUTSIDE OF THE [place] IN LAST 30 DAYS: No - Related Data Allergies/Adverse Reactions: adhesive Allergy (Verified 06/21/19 16:04) Cephalosporins Allergy (Verified 06/21/19 16:04) Iodine and Iodide Containing Produc Allergy (Verified 06/21/19 16:04) sulfamethoxazole [From Bactrim] Allergy (Verified 06/21/19 16:04) trimethoprim [From Bactrim] Allergy (Verified 06/21/19 16:04) Past Medical History - Social History Family history: None - Past Medical History Cardiac Medical History: Reports: Hx DVT, Hx Hypertension, Hx Pulmonary Embolism - COUMADIN Denies: Hx Coronary Artery Disease, Hx Heart Attack Pulmonary Medical History: Reports: Hx Asthma, Hx Bronchitis Denies: Hx COPD, Hx Pneumonia Neurological Medical History: Denies: Hx Cerebrovascular Accident, Hx Seizures Endocrine Medical History: Reports: Hx Diabetes Mellitus Type 2 - Diet controlled Renal/ Medical History: Denies: Hx Peritoneal Dialysis Musculoskeltal Medical History: Denies Hx Arthritis Skin Medical History: Reports Hx Cellulitis Psychiatric Medical History: Reports: Hx Depression Past Surgical History: Reports: Hx Section, Hx Cholecystectomy, Hx Orthopedic Surgery - foot, Hx Vascular Surgery - umbilical hernia, Other - Colonoscopy, EGD - Immunizations Hx Diphtheria, Pertussis, Tetanus Vaccination: Yes Physical Exam - Vital signs Vitals: Temp Pulse Resp BP Pulse Ox 97.9 F 97 24 H 129/60 H 89 L 06/21/19 15:48 06/21/19 15:48 06/21/19 15:48 06/21/19 15:48 06/21/19 15:48 Course - Vital Signs Vital signs: Temp Pulse Resp BP Pulse Ox 97.9 F 97 24 H 129/60 H 89 L 06/21/19 15:48 06/21/19 15:48 06/21/19 15:48 06/21/19 15:48 06/21/19 15:48 Doctor's Discharge - Discharge Referrals: TRISTIN JON, BALDO-C [Primary Care Provider] - Follow up as needed
[2019-06-21 16:38] LABS: ABSOLUTE BASOPHILS # (AUTO) 0.1 10^3/uL (0.0-0.2); ABSOLUTE EOSINOPHILS # (AUTO) 0.3 10^3/uL (0.0-0.6); ABSOLUTE LYMPHOCYTES (AUTO) 1.1 10^3/uL (0.5-4.7); ABSOLUTE MONOCYTES (AUTO) 0.4 10^3/uL (0.1-1.4); BASOPHILS % (AUTO) 0.9 % (0-2); HEMOGLOBIN 10.9 g/dL (12.0-15.5); LYMPHOCYTES % (AUTO) 16.4 % (13-45); MEAN CORPUSCULAR HEMOGLOBIN 25.9 pg (27.0-33.4); MEAN CORPUSCULAR HGB CONC 31.1 g/dL (32.0-36.0); MEAN CORPUSCULAR VOLUME 83 fl (80-97); MONOCYTES % (AUTO) 6.1 % (3-13); PLATELET COUNT 282 10^3/uL (150-450); RED BLOOD COUNT 4.21 10^6/uL (3.72-5.28); RED CELL DISTRIBUTION WIDTH 16.6 % (11.5-14.0); SEGMENTED NEUTROPHILS % (AUTO) 72.6 % (42-78); TOTAL CELLS COUNTED % (AUTO) 100 %; WHITE BLOOD COUNT 6.9 10^3/uL (4.0-10.5)
[2019-06-21 16:51] LABS: ALBUMIN 3.6 g/dL (3.5-5.0); ALKALINE PHOSPHATASE 85 U/L (38-126); ANION GAP 6 (5-19); ASPARTATE AMINO TRANSFERASE 31 U/L (14-36); BILIRUBIN,DIRECT 0.3 mg/dL (0.0-0.4); BILIRUBIN,TOTAL 0.4 mg/dL (0.2-1.3); BLOOD UREA NITROGEN 16 mg/dL (7-20); CALCIUM 8.6 mg/dL (8.4-10.2); CARBON DIOXIDE 37 mmol/L (22-30); CHLORIDE 96 mmol/L (98-107); GLUCOSE 83 mg/dL (75-110); POTASSIUM 4.4 mmol/L (3.6-5.0); TOTAL PROTEIN 8.6 g/dL (6.3-8.2)
[2019-06-21 20:50] LABS: ARTERIAL BLOOD BASE EXCESS 8.1 mmol/L; ARTERIAL BLOOD H2CO3 1.88 mmol/L (1.05-1.35); ARTERIAL BLOOD HCO3 35.3 mmol/L (20-24); ARTERIAL BLOOD O2 SATURATION 86.8 % (94-98); ARTERIAL BLOOD PCO2 62.6 mmHg (35-45); ARTERIAL BLOOD PH 7.37 (7.35-7.45); ARTERIAL BLOOD PO2 55.1 mmHg (80-100); ARTERIAL BLOOD TOTAL CO2 37.2 mmol/L (21-25)
[2019-06-21 20:51] LABS: ARTERIAL BLOOD FIO2 ROOM AIR
--- NOTE | 2019-06-21 21:27 | ER Document Report ---
ED Extremity Problem, Lower - General Chief Complaint: Leg Pain Stated Complaint: RIGHT LEG POSSIBLE INFECTION Time Seen by Provider: 06/21/19 16:06 Mode of Arrival: Ambulatory Notes: 59-year-old woman presents to the emergency department with a complaint of cellulitis of the lower extremities. She had been going to the wound care clinic and [place]. Apparently the physician saw her today and directed her to come to the emergency department because of the infection involving the right leg. She notes foul-smelling drainage with increased pain and redness. She has a report of a wound culture which was performed staph which is sensitive to vancomycin and cephalosporins. She is allergic to cephalosporins TRAVEL OUTSIDE OF THE [place] IN LAST 30 DAYS: No - Related Data Allergies/Adverse Reactions: adhesive Allergy (Verified 06/21/19 16:04) Cephalosporins Allergy (Verified 06/21/19 16:04) Iodine and Iodide Containing Produc Allergy (Verified 06/21/19 16:04) sulfamethoxazole [From Bactrim] Allergy (Verified 06/21/19 16:04) trimethoprim [From Bactrim] Allergy (Verified 06/21/19 16:04) Past Medical History - Social History Smoking Status: Never Smoker Family History: Hypertension Patient has suicidal ideation: No Patient has homicidal ideation: No - Past Medical History Cardiac Medical History: Reports: Hx DVT, Hx Hypertension, Hx Pulmonary Embolism - COUMADIN Denies: Hx Coronary Artery Disease, Hx Heart Attack Pulmonary Medical History: Reports: Hx Asthma, Hx Bronchitis Denies: Hx COPD, Hx Pneumonia Neurological Medical History: Denies: Hx Cerebrovascular Accident, Hx Seizures Endocrine Medical History: Reports: Hx Diabetes Mellitus Type 2 - Diet control led Renal/ Medical History: Denies: Hx Peritoneal Dialysis Musculoskeletal Medical History: Denies Hx Arthritis Skin Medical History: Reports Hx Cellulitis Psychiatric Medical History: Reports: Hx Depression Past Surgical History: Reports: Hx Section, Hx Cholecystectomy, Hx Orthopedic Surgery - foot, Hx Vascular Surgery - umbilical hernia, Other - Colonoscopy, EGD - Immunizations Hx Diphtheria, Pertussis, Tetanus Vaccination: Yes Review of Systems - Review of Systems Notes: Constitutional: Negative for fever. HENT: Negative for sore throat. Eyes: Negative for visual changes. Cardiovascular: Negative for chest pain. Respiratory: Negative for shortness of breath. Gastrointestinal: Negative for abdominal pain, vomiting or diarrhea. Genitourinary: Negative for dysuria. Musculoskeletal: + Right lower extremity with a chronic ulcer mucopurulent drainage Skin: Negative for rash. Neurological: Negative for headaches, weakness or numbness. 10 point ROS negative except as marked above and in HPI. Physical Exam - Vital signs Vitals: Temp Pulse Resp BP Pulse Ox 97.9 F 97 24 H 129/60 H 89 L 06/21/19 15:48 06/21/19 15:48 06/21/19 15:48 06/21/19 15:48 06/21/19 15:48 - Notes Notes: PHYSICAL EXAMINATION: Physical Exam: General: Morbidly obese 59-year-old woman in no acute distress HEENT: NC/AT, pupils equal round and reactive to light, MM moist,nares clear, oropharynx clear, airway patent Neck: supple, no adenopathy, no masses. Good range of motion Lungs: clear, no wheezing, no rales no rhonchi CVS: Regular rate and rhythm no murmur gallop or rub Abdomen: Soft, active, nontender, no masses, no hepatosplenomegaly Ext: Lower extremity with a area of chronic ulcer in the distal lower extremity with associated mucopurulent drainage there is surrounding cellulitis and foul-smelling material. Neuro: Alert and responsive, moving all 4 extremities on command, cranial nerves intact, no focal findings Skin: Intact no open lesions, no rash PSYCH: Normal mood, normal affect. Course - Re-evaluation Re-evalutation: 06/21/19 23:20 The patient's dressing was removed and a foul-smelling mucopurulent drainage noted from the area in the lower tibia. Open wound with chronic appearing ulcers and secondary cellulitis. Wound culture was obtained. Hospitalist Dr. Prescott was contacted and he will admit the patient to the hospital for further evaluation and treatment. Blood cultures x2 and vancomycin IV were begun in the emergency department. - Vital Signs Vital signs: Temp Pulse Resp BP Pulse Ox 97.9 F 97 24 H 129/60 H 89 L 06/21/19 15:48 06/21/19 15:48 06/21/19 15:48 06/21/19 15:48 06/21/19 15:48 - Laboratory Result Diagrams: 06/21/19 16:20 06/21/19 16:20 Laboratory results interpreted by me: 06/21/19 06/21/19 06/21/19 16:20 16:20 16:20 Hgb 10.9 L Hct 35.0 L MCH 25.9 L MCHC 31.1 L RDW 16.6 H Carbonic Acid ABG pCO2 ABG pO2 ABG HCO3 ABG Total CO2 ABG O2 Saturation Chloride 96 L Carbon Dioxide 37 H NT-Pro-B Natriuret Pep 165 H Total Protein 8.6 H 06/21/19 20:40 Hgb Hct MCH MCHC RDW Carbonic Acid 1.88 H ABG pCO2 62.6 H ABG pO2 55.1 L ABG HCO3 35.3 H ABG Total CO2 37.2 H ABG O2 Saturation 86.8 L Chloride Carbon Dioxide NT-Pro-B Natriuret Pep Total Protein 06/21/19 23:24 Review Discharge - Discharge Clinical Impression: Cellulitis of right lower extremity, Nonhealing ulcers rt lower leg, Morbid obesity Condition: Stable Disposition: ADMITTED INPATIENT Admitting Provider: Kenyon (Hospitalist) Unit Admitted: Medical Floor
[2019-06-21] MEDS ORDERED: VANCOMYCIN HCL INJ 1000 MG VIAL IV ONE (21:34)
[2019-06-21] MEDS ORDERED: ACETAMINOPHEN 325 MG TABLET PO PRN (22:24)
[2019-06-21] MEDS ORDERED: IPRATROPIUM/ALBUTEROL 0.5-2.5 MG/3 ML AMPUL NEB PRN (22:24)
[2019-06-21] MEDS ORDERED: MAGNESIUM HYDROXIDE SUSP 30 ML UDCUP PO PRN (22:24)
[2019-06-21] MEDS ORDERED: MAG HYDROX/AL HYDROX/SIMETH SUSP 30 ML UDCUP PO PRN (22:24)
--- NOTE | 2019-06-21 22:42 | PDOC CONSULTATION ---
Consultation Consult Date: 06/21/19 Attending physician:: NASEEM SOUZA Provider Consulted: LATANYA DYER Consult reason:: Right lower extremity venous stasis ulcer History of Present Illness Admission Date/PCP: BALDO WILDE History of Present Illness: CARLYLE SINHA is a 59 year old female morbidly obese presents with cellulitis and wounds to bilateral legs. She reports she has had the wounds for the past 2 years. She is treated by cardiac wound care. She reports that the wounds are getting worse smelling worse more drainage. She was instructed to come here by her primary care provider for IV antibiotics. She denies fever vomiting diarrhea. Patient O2 sat 89%. She reports she is always low. She denies history of COPD. Reports history of bronchitis. Patient speaking in a clear voice no shortness of breath. Past Medical History Cardiac Medical History: Reports: DVT, Hypertension, Pulmonary Embolism - COUMADIN Denies: Coronary Artery Disease, Myocardial Infarction Pulmonary Medical History: Reports: Asthma, Bronchitis Denies: Chronic Obstructive Pulmonary Disease (COPD), Pneumonia Neurological Medical History: Denies: Seizures Endocrine Medical History: Reports: Diabetes Mellitus Type 2 - Diet controlled Musculoskeltal Medical History: Denies: Arthritis Psychiatric Medical History: Reports: Depression Hematology: Denies: Anemia Past Surgical History Past Surgical History: Reports: Section, Cholecystectomy, Orthopedic Surgery - foot, Vascular Surgery - umbilical hernia, Other - Colonoscopy, EGD Social History Smoking Status: Never Smoker Frequency of Alcohol Use: None Hx Recreational Drug Use: No Drugs: None Hx Prescription Drug Abuse: No Family History Family History: Hypertension Parental Family History Reviewed: No Children Family History Reviewed: NA Sibling(s) Family History Reviewed.: NA Medication/Allergy Home Medications: Loratadine [Claritin 10 mg Tablet] 10 mg PO DAILY 11/15/17 Nystatin [Mycostatin Topical Powder 15 gm] 1 applic TOP BID 11/15/17 Tramadol HCl [Ultram 50 mg Tablet] 50 mg PO Q6HP PRN 11/15/17 Warfarin Sodium [Coumadin 4 mg Tablet] 8 mg PO QPM 11/15/17 Hydrocodone/Acetaminophen [[place] 5-325 mg Tablet] 1 tab PO PRN PRN 06/29/18 Hydroxyzine HCl [Atarax 50 mg Tablet] 50 mg PO PRN PRN 06/29/18 Naproxen Sodium 660 mg PO BID 06/29/18 Sertraline HCl [Zoloft] 100 mg PO DAILY 06/29/18 Acetaminophen [Tylenol 325 mg Tablet] 650 mg PO Q4HP PRN tablet 07/01/18 Allergies/Adverse Reactions: adhesive Allergy (Verified 06/21/19 16:04) Cephalosporins Allergy (Verified 06/21/19 16:04) Iodine and Iodide Containing Produc Allergy (Verified 06/21/19 16:04) sulfamethoxazole [From Bactrim] Allergy (Verified 06/21/19 16:04) trimethoprim [From Bactrim] Allergy (Verified 06/21/19 16:04) Review of Systems Constitutional: PRESENT: fatigue, weakness, weight gain Eyes: ABSENT: as per HPI, visual disturbances, other Ears: ABSENT: as per HPI, hearing changes, other Nose, Mouth, and Throat: ABSENT: as per HPI, headache(s), mouth pain, sore throat, vertigo, other Breasts: ABSENT: as per HPI, other Cardiovascular: ABSENT: as per HPI, chest pain, dyspnea on exertion, edema, orthropnea, palpitations, other Respiratory: PRESENT: dyspnea Genitourinary: ABSENT: as per HPI, difficulty urinating, dysuria, hematuria, nocturia, other Musculoskeletal: PRESENT: deformity, joint swelling Integumentary: PRESENT: wounds - Right lower extremity Neurological: ABSENT: as per HPI, abnormal gait, abnormal movements, abnormal speech, confusion, convulsions, dizziness, focal weakness, frequent falls, lack of coordination, memory loss, numbness, paresthesias, restless legs, syncope, tingling, tremor(s), vertigo, weakness, other Psychiatric: ABSENT: as per HPI, anxiety, depression, hallucinations, homidical ideation, suicidal ideation, other Endocrine: ABSENT: as per HPI, cold intolerance, flushing, heat intolerance, menstrual abnormalities, polydipsia, polyphagia, polyuria, other Hematologic/Lymphatic: ABSENT: as per HPI, easy bleeding, easy bruising, lymphadenopathy, other Allergic/Immunologic: ABSENT: as per HPI, seasonal rhinorrhea, other Physical Exam Vital Signs: Temp Pulse Resp BP Pulse Ox 97.9 F 97 24 H 129/60 H 89 L 06/21/19 15:48 06/21/19 15:48 06/21/19 15:48 06/21/19 15:48 06/21/19 15:48 Intake & Output 06/20/19 06/21/19 06/22/19 06:59 06:59 06:59 Weight 197.313 kg General appearance: PRESENT: mild distress, morbidly obese Head exam: PRESENT: normocephalic Eye exam: PRESENT: EOMI Ear exam: PRESENT: normal external ear exam Mouth exam: PRESENT: moist Teeth exam: PRESENT: poor dentation Respiratory exam: PRESENT: clear to auscultation tony Cardiovascular exam: PRESENT: RRR Pulses: PRESENT: +1 pedal pulses bilateral GI/Abdominal exam: PRESENT: soft, other - Obese with a large pannus overhanging both groin creases Rectal exam: PRESENT: deferred Extremities exam: PRESENT: pedal edema, +2 edema, other - There is a large approximately 14 cm lower extremity full skin ulceration stage III with with fibrinous exudate over the wound and some mild surrounding cellulitis in the lower calf there is no palpable or obvious deep abscess. Massive lymphedema bilateral lower extremities Neurological exam: PRESENT: alert Psychiatric exam: PRESENT: appropriate affect Skin exam: PRESENT: petechiae, skin tears, vesicles Results Laboratory Results: 06/21/19 16:20 06/21/19 16:20 06/21/19 06/21/19 06/21/19 16:20 16:20 20:40 WBC 6.9 RBC 4.21 Hgb 10.9 L Hct 35.0 L MCV 83 MCH 25.9 L MCHC 31.1 L RDW 16.6 H Plt Count 282 Seg Neutrophils % 72.6 Carbonic Acid 1.88 H HCO3/H2CO3 Ratio 18:1 ABG pH 7.37 ABG pCO2 62.6 H ABG pO2 55.1 L ABG HCO3 35.3 H ABG O2 Saturation 86.8 L ABG Base Excess 8.1 FiO2 ROOM AIR Sodium 139.1 Potassium 4.4 Chloride 96 L Carbon Dioxide 37 H Anion Gap 6 BUN 16 Creatinine 0.67 Est GFR ( Amer) > 60 Glucose 83 Calcium 8.6 Total Bilirubin 0.4 AST 31 Alkaline Phosphatase 85 Total Protein 8.6 H Albumin 3.6 06/21/19 16:20 NT-Pro-B Natriuret Pep 165 H Assessment & Plan - Plan Summary Plan Summary: Impression stage III venous stasis ulcers right lower extremity over the calf with massive lymphedema bilateral lower extremities It appears that the wound is been somewhat neglected with poor dressing changes with accumulation of fibrinous exudate and skin sloughing. Recommend aggressive wound care with at least 3 times a day wet-to-dry's Curlex gauze saline dressing changes. There is no obvious deep abscess or surgical indication for debridement at this time. Social service and/or discharge planning should be involved with the patient as she lives alone and is getting an adequate care of her lower extremity ulcers. Please contact surgery for any further issues.
[2019-06-22 00:03] LABS: HEMATOCRIT 35.4 % (36.0-47.0); HEMOGLOBIN 11.1 g/dL (12.0-15.5); MEAN CORPUSCULAR HEMOGLOBIN 25.9 pg (27.0-33.4); MEAN CORPUSCULAR HGB CONC 31.3 g/dL (32.0-36.0); MEAN CORPUSCULAR VOLUME 83 fl (80-97); PLATELET COUNT 272 10^3/uL (150-450); RED BLOOD COUNT 4.28 10^6/uL (3.72-5.28); RED CELL DISTRIBUTION WIDTH 16.9 % (11.5-14.0); WHITE BLOOD COUNT 8.3 10^3/uL (4.0-10.5)
[2019-06-22] MEDS ORDERED: INFLUENZA QUAD (6MOS+) 2019-20 VAC 0.5 ML SYR IM ONE (02:03)
[2019-06-22 02:28] LABS: APPEARANCE,URINE SLIGHTLY-CLOUDY; BILIRUBIN,URINE NEGATIVE (NEGATIVE); COLOR,URINE YELLOW; GLUCOSE, URINE NEGATIVE (NEGATIVE); KETONES,URINE NEGATIVE (NEGATIVE); LEUKOCYTE ESTERASE,URINE TRACE (NEGATIVE); NITRITE,URINE NEGATIVE (NEGATIVE); PROTEIN,URINE NEGATIVE (NEGATIVE); URINE SPECIFIC GRAVITY 1.018; UROBILINOGEN,URINE NEGATIVE mg/dL (<2.0)
[2019-06-22 02:34] LABS: ADD MANUAL MICROSCOPIC YES
[2019-06-22 02:35] LABS: WBC,URINE 0-1 /HPF
[2019-06-22] MEDS: KETOROLAC TROMETHAMINE INJ/PF 30 MG/1 ML SDV IV PRN ×2 (05:20→11:33)
--- NOTE | 2019-06-22 05:28 | PDOC H&P ---
History of Present Illness Admission Date/PCP: 06/21/19 22:58 BALDO WILDE Patient complains of: Right leg ulcer History of Present Illness: CARLYLE SINHA is a 59 year old female with a past medical history of morbid obesity with a BMI over 70, diabetes, DVT and pulmonary embolism on Coumadin, venous stasis and chronic right leg ulcer. She presents with malodorous neglected superficial, right leg ulcer without evidence of cellulitis or sepsis. Seen in the emergency department she admits dressing changes twice a week. Surgical consult obtained recommending wet-to-dry dressing 3 times daily. She has no resources and independent setting and is referred to the hospitalist for admission. She denies localized pain to this area. Past Medical History Cardiac Medical History: Reports: DVT, Hypertension, Pulmonary Embolism - COUMADIN Denies: Coronary Artery Disease, Myocardial Infarction Pulmonary Medical History: Reports: Asthma, Bronchitis, Chronic Obstructive Pulmonary Disease (COPD) Denies: Pneumonia Neurological Medical History: Denies: Seizures Endocrine Medical History: Reports: Diabetes Mellitus Type 2 - Diet controlled, Obesity Musculoskeltal Medical History: Denies: Arthritis Psychiatric Medical History: Reports: Depression Hematology: Reports: Anemia Past Surgical History Past Surgical History: Reports: Section, Cholecystectomy, Orthopedic Surgery - foot, Vascular Surgery - umbilical hernia, Other - Colonoscopy, EGD Social History Information Source: Patient, [facility] Lives with: Alone Smoking Status: Never Smoker Frequency of Alcohol Use: None Hx Recreational Drug Use: No Drugs: None Hx Prescription Drug Abuse: No - Advance Directive Resuscitation Status: Full Code Family History Family History: Hypertension Parental Family History Reviewed: Yes Children Family History Reviewed: Yes Sibling(s) Family History Reviewed.: Yes Medication/Allergy Home Medications: Loratadine [Claritin 10 mg Tablet] 10 mg PO DAILY 11/15/17 Nystatin [Mycostatin Topical Powder 15 gm] 1 applic TOP BID 11/15/17 Tramadol HCl [Ultram 50 mg Tablet] 50 mg PO Q6HP PRN 11/15/17 Warfarin Sodium [Coumadin 4 mg Tablet] 7 mg PO QPM 11/15/17 Hydrocodone/Acetaminophen [[place] 5-325 mg Tablet] 1 tab PO PRN PRN 06/29/18 Hydroxyzine HCl [Atarax 50 mg Tablet] 50 mg PO PRN PRN 06/29/18 Naproxen Sodium 660 mg PO BID 06/29/18 Sertraline HCl [Zoloft] 150 mg PO DAILY 06/29/18 Acetaminophen [Tylenol 325 mg Tablet] 650 mg PO Q4HP PRN tablet 07/01/18 Allergies/Adverse Reactions: adhesive Allergy (Verified 06/21/19 16:04) Cephalosporins Allergy (Verified 06/21/19 16:04) Iodine and Iodide Containing Produc Allergy (Verified 06/21/19 16:04) sulfamethoxazole [From Bactrim] Allergy (Verified 06/21/19 16:04) trimethoprim [From Bactrim] Allergy (Verified 06/21/19 16:04) Review of Systems Constitutional: ABSENT: chills, fever(s), headache(s), weight gain, weight loss Eyes: ABSENT: visual disturbances Ears: ABSENT: hearing changes Cardiovascular: ABSENT: chest pain, dyspnea on exertion, edema, orthropnea, palpitations Respiratory: ABSENT: cough, hemoptysis Gastrointestinal: ABSENT: abdominal pain, constipation, diarrhea, hematemesis, hematochezia, nausea, vomiting Genitourinary: ABSENT: dysuria, hematuria Musculoskeletal: ABSENT: joint swelling Integumentary: ABSENT: rash, wounds Neurological: ABSENT: abnormal gait, abnormal speech, confusion, dizziness, focal weakness, syncope Psychiatric: ABSENT: anxiety, depression, homidical ideation, suicidal ideation Endocrine: ABSENT: cold intolerance, heat intolerance, polydipsia, polyuria Hematologic/Lymphatic: ABSENT: easy bleeding, easy bruising Physical Exam Vital Signs: Temp Pulse Resp BP Pulse Ox 97.9 F 93 16 149/78 H 92 06/22/19 01:15 06/22/19 01:15 06/22/19 01:15 06/22/19 01:15 06/22/19 01:15 Intake & Output 06/20/19 06/21/19 06/22/19 11:59 11:59 11:59 Weight 200.6 kg General appearance: PRESENT: cooperative, disheveled, morbidly obese, well- developed Head exam: PRESENT: atraumatic, normocephalic Eye exam: PRESENT: conjunctiva pink, EOMI, PERRLA. ABSENT: scleral icterus Ear exam: PRESENT: normal external ear exam Mouth exam: PRESENT: moist, tongue midline Neck exam: ABSENT: carotid bruit, JVD, lymphadenopathy, thyromegaly Respiratory exam: PRESENT: clear to auscultation tony. ABSENT: rales, rhonchi, wheezes Cardiovascular exam: PRESENT: RRR. ABSENT: diastolic murmur, rubs, systolic murmur Pulses: PRESENT: normal dorsalis pedis pul, +1 pedal pulses bilateral Vascular exam: PRESENT: normal capillary refill GI/Abdominal exam: PRESENT: normal bowel sounds, soft. ABSENT: distended, guarding, mass, organolmegaly, rebound, tenderness Rectal exam: PRESENT: deferred Extremities exam: PRESENT: full ROM, pedal edema, +1 edema, other - 14 x 8 cm circumferential ulcer to the distal right leg with superficial fluctuant malodorous exudate. Massive bilateral lymphedema. ABSENT: calf tenderness, clubbing Neurological exam: PRESENT: alert, awake, oriented to person, oriented to place, oriented to time, oriented to situation, CN II-XII grossly intact. ABSENT: motor sensory deficit Psychiatric exam: PRESENT: appropriate affect, normal mood. ABSENT: homicidal ideation, suicidal ideation Skin exam: PRESENT: dry, intact, warm. ABSENT: cyanosis, rash Results Laboratory Results: 06/21/19 23:47 06/21/19 16:20 06/21/19 06/21/19 06/21/19 16:20 16:20 20:40 WBC 6.9 RBC 4.21 Hgb 10.9 L Hct 35.0 L MCV 83 MCH 25.9 L MCHC 31.1 L RDW 16.6 H Plt Count 282 Seg Neutrophils % 72.6 Carbonic Acid 1.88 H HCO3/H2CO3 Ratio 18:1 ABG pH 7.37 ABG pCO2 62.6 H ABG pO2 55.1 L ABG HCO3 35.3 H ABG O2 Saturation 86.8 L ABG Base Excess 8.1 FiO2 ROOM AIR Sodium 139.1 Potassium 4.4 Chloride 96 L Carbon Dioxide 37 H Anion Gap 6 BUN 16 Creatinine 0.67 Est GFR ( Amer) > 60 Glucose 83 Calcium 8.6 Total Bilirubin 0.4 AST 31 Alkaline Phosphatase 85 Total Protein 8.6 H Albumin 3.6 Urine Color Urine Appearance Urine pH Ur Specific [place] Urine Protein Urine Glucose (UA) Urine Ketones Urine Blood Urine Nitrite Ur Leukocyte Esterase 06/21/19 06/22/19 23:47 02:15 WBC 8.3 RBC 4.28 Hgb 11.1 L Hct 35.4 L MCV 83 MCH 25.9 L MCHC 31.3 L RDW 16.9 H Plt Count 272 Seg Neutrophils % Carbonic Acid HCO3/H2CO3 Ratio ABG pH ABG pCO2 ABG pO2 ABG HCO3 ABG O2 Saturation ABG Base Excess FiO2 Sodium Potassium Chloride Carbon Dioxide Anion Gap BUN Creatinine Est GFR ( Amer) Glucose Calcium Total Bilirubin AST Alkaline Phosphatase Total Protein Albumin Urine Color YELLOW Urine Appearance SLIGHTLY-CLOUDY Urine pH 6.0 Ur Specific [place] 1.018 Urine Protein NEGATIVE Urine Glucose (UA) NEGATIVE Urine Ketones NEGATIVE Urine Blood NEGATIVE Urine Nitrite NEGATIVE Ur Leukocyte Esterase TRACE H 06/21/19 16:20 NT-Pro-B Natriuret Pep 165 H Assessment and Plan - Diagnosis (1) Venous stasis ulcer Is this a current diagnosis for this admission?: Yes Plan: Polymicrobial by multiple previous cultures. Unremarkable CBC, afebrile, withhold antibiotics, wet-to-dry dressings 3 times daily, discharge planning consult (2) Morbid obesity with BMI of 70 and over, adult Is this a current diagnosis for this admission?: Yes Plan: Morbid obesity with multiple previous work-ups will not repeat evaluation for metabolic cause with evaluation of thyroid function and dietitian consultation - Time Time Spent with patient: 25-34 minutes
[2019-06-22 06:29] LABS: ABSOLUTE EOSINOPHILS # (AUTO) 0.4 10^3/uL (0.0-0.6); ABSOLUTE LYMPHOCYTES (AUTO) 1.1 10^3/uL (0.5-4.7); ABSOLUTE MONOCYTES (AUTO) 0.3 10^3/uL (0.1-1.4); ABSOLUTE NEUT (AUTO) 6.4 10^3/uL (1.7-8.2); BASOPHILS % (AUTO) 0.5 % (0-2); EOSINOPHILS % (AUTO) 5.3 % (0-6); HEMATOCRIT 37.1 % (36.0-47.0); HEMOGLOBIN 11.5 g/dL (12.0-15.5); LYMPHOCYTES % (AUTO) 13.1 % (13-45); MEAN CORPUSCULAR HEMOGLOBIN 25.8 pg (27.0-33.4); MEAN CORPUSCULAR HGB CONC 31.1 g/dL (32.0-36.0); MEAN CORPUSCULAR VOLUME 83 fl (80-97); MONOCYTES % (AUTO) 3.9 % (3-13); PLATELET COUNT 266 10^3/uL (150-450); RED BLOOD COUNT 4.47 10^6/uL (3.72-5.28); RED CELL DISTRIBUTION WIDTH 16.3 % (11.5-14.0); SEGMENTED NEUTROPHILS % (AUTO) 77.2 % (42-78); TOTAL CELLS COUNTED % (AUTO) 100 %; WHITE BLOOD COUNT 8.3 10^3/uL (4.0-10.5)
[2019-06-22 06:35] LABS: INTERNATIONAL RATION (INR) 1.86; PROTHROMBIN TIME 21.7 SEC (11.4-15.4)
[2019-06-22 06:49] LABS: ANION GAP 7 (5-19); BLOOD UREA NITROGEN 14 mg/dL (7-20); CALCIUM 8.9 mg/dL (8.4-10.2); CARBON DIOXIDE 37 mmol/L (22-30); CHLORIDE 97 mmol/L (98-107); GLUCOSE 112 mg/dL (75-110); POTASSIUM 4.1 mmol/L (3.6-5.0)
[2019-06-22] MEDS: DOCUSATE SODIUM 100 MG/10 ML UDC PO SCH ×2 (09:42→11:00)
--- NOTE | 2019-06-22 11:11 | PDOC PROGRESS REPORT ---
Subjective Progress Note for:: 06/22/19 Subjective:: Patient is doing okay today. Denies any shortness of breath. States her breathing is her baseline which is mostly shallow breaths. Patient was notably hypoxic this morning but refused to wear oxygen because she feels that her respiratory status has not changed. Patient states she is having difficulty with doing her wound dressings herself because of weight. Denies any difficulty ambulating, feels that she does not need to go to snf. Reason For Visit: ACUTE AND CHRONIC RIGHT LEG ULCER Physical Exam Vital Signs: Temp Pulse Resp BP Pulse Ox 97.6 F 93 16 143/83 H 84 L 06/22/19 07:47 06/22/19 07:47 06/22/19 01:15 06/22/19 07:47 06/22/19 07:47 Intake & Output 06/21/19 06/22/19 06/23/19 06:59 06:59 06:59 Intake Total 240 Output Total 100 Balance 140 Weight 200.6 kg General appearance: PRESENT: no acute distress, cooperative Neck exam: ABSENT: JVD Respiratory exam: PRESENT: clear to auscultation tony, unlabored. ABSENT: tachypnea, wheezes Cardiovascular exam: PRESENT: RRR, +S1, +S2. ABSENT: tachycardia GI/Abdominal exam: PRESENT: soft. ABSENT: ascites, rebound, rigid, tenderness Extremities exam: PRESENT: pedal edema, other - Venous stasis dermatitis, right ulcer in grier,. ABSENT: tenderness Neurological exam: PRESENT: alert, awake, oriented to person, oriented to place, oriented to time Psychiatric exam: ABSENT: agitated, anxious Results Laboratory Results: 06/22/19 05:34 06/22/19 05:34 06/21/19 06/21/19 06/21/19 16:20 16:20 20:40 WBC 6.9 RBC 4.21 Hgb 10.9 L Hct 35.0 L MCV 83 MCH 25.9 L MCHC 31.1 L RDW 16.6 H Plt Count 282 Seg Neutrophils % 72.6 Carbonic Acid 1.88 H HCO3/H2CO3 Ratio 18:1 ABG pH 7.37 ABG pCO2 62.6 H ABG pO2 55.1 L ABG HCO3 35.3 H ABG O2 Saturation 86.8 L ABG Base Excess 8.1 FiO2 ROOM AIR Sodium 139.1 Potassium 4.4 Chloride 96 L Carbon Dioxide 37 H Anion Gap 6 BUN 16 Creatinine 0.67 Est GFR ( Amer) > 60 Glucose 83 Calcium 8.6 Total Bilirubin 0.4 AST 31 Alkaline Phosphatase 85 Total Protein 8.6 H Albumin 3.6 Urine Color Urine Appearance Urine pH Ur Specific Brandeis Urine Protein Urine Glucose (UA) Urine Ketones Urine Blood Urine Nitrite Ur Leukocyte Esterase 06/21/19 06/22/19 06/22/19 23:47 02:15 05:34 WBC 8.3 8.3 RBC 4.28 4.47 Hgb 11.1 L 11.5 L Hct 35.4 L 37.1 MCV 83 83 MCH 25.9 L 25.8 L MCHC 31.3 L 31.1 L RDW 16.9 H 16.3 H Plt Count 272 266 Seg Neutrophils % 77.2 Carbonic Acid HCO3/H2CO3 Ratio ABG pH ABG pCO2 ABG pO2 ABG HCO3 ABG O2 Saturation ABG Base Excess FiO2 Sodium Potassium Chloride Carbon Dioxide Anion Gap BUN Creatinine Est GFR ( Amer) Glucose Calcium Total Bilirubin AST Alkaline Phosphatase Total Protein Albumin Urine Color YELLOW Urine Appearance SLIGHTLY-CLOUDY Urine pH 6.0 Ur Specific Brandeis 1.018 Urine Protein NEGATIVE Urine Glucose (UA) NEGATIVE Urine Ketones NEGATIVE Urine Blood NEGATIVE Urine Nitrite NEGATIVE Ur Leukocyte Esterase TRACE H 06/22/19 05:34 WBC RBC Hgb Hct MCV MCH MCHC RDW Plt Count Seg Neutrophils % Carbonic Acid HCO3/H2CO3 Ratio ABG pH ABG pCO2 ABG pO2 ABG HCO3 ABG O2 Saturation ABG Base Excess FiO2 Sodium 140.5 Potassium 4.1 Chloride 97 L Carbon Dioxide 37 H Anion Gap 7 BUN 14 Creatinine 0.69 Est GFR ( Amer) > 60 Glucose 112 H Calcium 8.9 Total Bilirubin AST Alkaline Phosphatase Total Protein Albumin Urine Color Urine Appearance Urine pH Ur Specific Brandeis Urine Protein Urine Glucose (UA) Urine Ketones Urine Blood Urine Nitrite Ur Leukocyte Esterase 06/21/19 16:20 NT-Pro-B Natriuret Pep 165 H Assessment and Plan - Diagnosis (1) Venous stasis ulcer Is this a current diagnosis for this admission?: Yes Plan: Polymicrobial by multiple previous cultures. Unremarkable CBC, afebrile, withhold antibiotics, wet-to-dry dressings 3 times daily recommended by surgery, discharge planning to arrange for home health aide if possible to help with wound dressing. (2) Hypoxia Is this a current diagnosis for this admission?: Yes Plan: Suspect that this is probably due to her morbid obesity causing her to have hypoventilation. Patient has refused oxygen at this geovani because she feels that her breathing is completely at baseline e and unchanged for her. We will check a chest x-ray to evaluate. (3) Morbid obesity with BMI of 70 and over, adult Is this a current diagnosis for this admission?: Yes Plan: Morbid obesity with multiple previous work-ups will not repeat evaluation for metabolic cause with evaluation of thyroid function and dietitian consultation - Time Time Spent with patient: Less than 15 minutes
[2019-06-22] MEDS ORDERED: TRAMADOL HCL 50 MG TABLET PO PRN (12:18)
[2019-06-22] MEDS ORDERED: ACETAMINOPHEN 325 MG TABLET PO PRN (12:30)
--- NOTE | 2019-06-22 14:27 | RADIOLOGY REPORT (SQ) ---
EXAM DESCRIPTION: CHEST 2 VIEWS COMPLETED DATE/TIME: 06/22/2019 1:23 pm REASON FOR STUDY: hypoxia, obesity COMPARISON: 12/08/2015 EXAM PARAMETERS: NUMBER OF VIEWS: two views TECHNIQUE: Digital Frontal and Lateral radiographic views of the chest acquired. RADIATION DOSE: NA LIMITATIONS: none FINDINGS: LUNGS AND PLEURA: Low lung volumes. Pulmonary vascular congestion likely accentuated by t hose low lung volumes. MEDIASTINUM AND HILAR STRUCTURES: No masses or contour abnormalities. HEART AND VASCULAR STRUCTURES: Borderline cardiomegaly. BONES: No acute findings. HARDWARE: None in the chest. OTHER: No other significant finding. IMPRESSION: Borderline cardiomegaly with pulmonary vascular congestion. Low lung volumes. No acute finding. TECHNICAL DOCUMENTATION: JOB ID: [id number] 2010 [employer]- All Rights Reserved Reading location - IP/workstation name: [email or web address]
[2019-06-22] MEDS ORDERED: HYDROXYZINE HCL INJ 50 MG/1 ML VIAL IM PRN (15:11)
[2019-06-22] MEDS ORDERED: ZOLPIDEM TARTRATE 5 MG TABLET PO PRN (15:11)
[2019-06-22] MEDS ORDERED: HYDROCODONE/ACETAMINOPHEN 5-325 MG TABLET PO PRN (15:11)
[2019-06-22] MEDS: DOCUSATE SODIUM 100 MG CAPSULE PO SCH (17:15)
[2019-06-22] MEDS: OXYBUTYNIN CHLORIDE 5 MG TABLET PO SCH (17:18)
[2019-06-22] MEDS: HYDROCODONE/ACETAMINOPHEN 5-325 MG TABLET PO PRN (17:19)
[2019-06-22] MEDS: NYSTATIN TOPICAL POWDER 15 GM TOP SCH (17:19)
[2019-06-22] MEDS ORDERED: FUROSEMIDE INJ/PF 40 MG/4 ML SDV IV ONE (17:34)
[2019-06-22 18:24] LABS: HEMATOCRIT 36.4 % (36.0-47.0); HEMOGLOBIN 11.3 g/dL (12.0-15.5); MEAN CORPUSCULAR HEMOGLOBIN 25.7 pg (27.0-33.4); MEAN CORPUSCULAR VOLUME 83 fl (80-97); PLATELET COUNT 277 10^3/uL (150-450); RED BLOOD COUNT 4.39 10^6/uL (3.72-5.28); RED CELL DISTRIBUTION WIDTH 16.1 % (11.5-14.0); WHITE BLOOD COUNT 8.1 10^3/uL (4.0-10.5)
[2019-06-22] MEDS ORDERED: WARFARIN SODIUM 2 MG TABLET PO SCH (22:00)
[2019-06-22] MEDS ORDERED: WARFARIN SODIUM 5 MG TABLET PO SCH (22:00)
[2019-06-23] MEDS: HYDROCODONE/ACETAMINOPHEN 5-325 MG TABLET PO PRN ×2 (00:13→06:16)
[2019-06-23 06:37] LABS: INTERNATIONAL RATION (INR) 1.78; PROTHROMBIN TIME 20.9 SEC (11.4-15.4)
[2019-06-23] MEDS ORDERED: LORATADINE 10 MG TABLET PO SCH (08:00)
[2019-06-23] MEDS: DOCUSATE SODIUM 100 MG CAPSULE PO SCH (09:53)
[2019-06-23] MEDS: OXYBUTYNIN CHLORIDE 5 MG TABLET PO SCH (09:57)
[2019-06-23] MEDS: NYSTATIN TOPICAL POWDER 15 GM TOP SCH (09:57)
[2019-06-23] MEDS ORDERED: SERTRALINE HCL 50 MG TABLET PO SCH (10:00)
--- NOTE | 2019-06-23 11:40 | PDOC DISCHARGE SUMMARY ---
Impression - Admit/DC Date/PCP Admission Date/Primary Care Provider: 06/21/19 22:58 BALDO WILDE Discharge Date: 06/23/19 - Discharge Diagnosis (1) Venous stasis ulcer Is this a current diagnosis for this admission?: Yes (2) Hypoxia Is this a current diagnosis for this admission?: Yes (3) Morbid obesity with BMI of 70 and over, adult Is this a current diagnosis for this admission?: Yes (4) Cellulitis of right lower extremity Is this a current diagnosis for this admission?: Yes - Additional Information Resuscitation Status: Full Code Discharge Diet: As Tolerated Discharge Activity: Activity As Tolerated Referrals: JENNIFER RODAS DO [NO LOCAL MD] - 07/04/19 11:00 am Prescriptions: Sulfamethoxazole/Trimethoprim [Bactrim Ds Tablet] 2 each PO BID 9 Days tablet Furosemide [Lasix 20 mg Tablet] 20 mg PO QAM #20 tablet Home Medications: Loratadine [Claritin 10 mg Tablet] 10 mg PO QAM 11/15/17 Nystatin [Mycostatin Topical Powder 15 gm] 1 applic TOP BID 11/15/17 Hydrocodone/Acetaminophen [Caspian 5-325 mg Tablet] 1 tab PO Q4HP PRN 06/29/18 Hydroxyzine HCl [Atarax 50 mg Tablet] 50 mg PO DAILYP PRN 06/29/18 Naproxen Sodium 660 mg PO BID 06/29/18 Sertraline HCl [Zoloft] 150 mg PO QAM 06/29/18 Oxybutynin Chloride [Ditropan Xl] 10 mg PO BID 06/22/19 Warfarin Sodium [Coumadin 2 mg Tablet] 2 mg PO QAM 06/22/19 Warfarin Sodium [Coumadin 5 mg Tablet] 5 mg PO QAM 06/22/19 Zolpidem Tartrate [Ambien 5 mg Tablet] 5 mg PO HSP PRN 06/22/19 Furosemide [Lasix 20 mg Tablet] 20 mg PO QAM #20 tablet 06/23/19 Sulfamethoxazole/Trimethoprim [Bactrim Ds Tablet] 2 each PO BID 9 Days tablet 06/23/19 History of Present Illiness History of Present Illness: CARLYLE SINHA is a 59 year old female with a past medical history of morbid obesity with a BMI over 70, diabetes, DVT and pulmonary embolism on Coumadin, venous stasis and chronic right leg ulcer. She presents with malodorous neglected superficial, right leg ulcer without evidence of cellulitis or sepsis. Seen in the emergency department she admits dressing changes twice a week. Surgical consult obtained recommending wet-to-dry dressing 3 times daily. She has no resources and independent setting and is referred to the hospitalist for admission. She denies localized pain to this area. Hospital Course Hospital Course: Patient presented for evaluation of her venous ulcer after being referred to the hospital from her wound clinic in [place]. Upon presentation patient's venostasis ulcer was evaluated by surgery who deemed that venous wound did not appear infected and recommended wet-to-dry dressings and no surgical interventions. Patient did have mild erythema surrounding wound especially involving her foot dorsum and as such has been placed on Bactrim for 9 days for possible underlying cellulitis. Patient has been instructed to check INR within 1 week of starting Bactrim given potential for INR to rise with concomitant use of Bactrim. Patient has been instructed to keep her legs elevated and use her compression stockings at all times to help with her chronic venous stasis. Patient was noted to have some episodes of hypoxia but refused to wear oxygen. Chest x-ray did show low lung volumes with only mild pulmonary vascular farrah estion. I believe patient's hypoxia is likely due to alveolar hypoventilation from her morbid obesity. I give patient a dose of Lasix and I am discharging patient on a small dose of p.o. Lasix. Hypoxia has resolved today. I also think patient would benefit from a sleep study and have recommended this to patient which she states that she will follow-up with her habilitation training specialist to get it done once her insurance kicks in. Patient is being discharged in stable conditions and encouraged to follow-up with her PCP, habilitation training specialist and the wound care clinic at [place] which patient goes to. Physical Exam Vital Signs: Temp Pulse Resp BP Pulse Ox 98.4 F 99 19 139/66 H 90 L 06/23/19 08:19 06/23/19 08:19 06/23/19 08:19 06/23/19 08:19 06/23/19 08:19 Intake & Output 06/22/19 06/23/19 06/24/19 06:59 06:59 06:59 Intake Total 240 2576 Output Total 100 590 Balance 140 1986 Weight 200.6 kg 200.1 kg General appearance: PRESENT: no acute distress, cooperative, morbidly obese Eye exam: ABSENT: EOMI Respiratory exam: PRESENT: clear to auscultation tony Neurological exam: PRESENT: alert, awake Results Laboratory Results: WBC 8.1 10^3/uL (4.0-10.5) 06/22/19 17:56 RBC 4.39 10^6/uL (3.72-5.28) 06/22/19 17:56 Hgb 11.3 g/dL (12.0-15.5) L 06/22/19 17:56 Hct 36.4 % (36.0-47.0) 06/22/19 17:56 MCV 83 fl (80-97) 06/22/19 17:56 MCH 25.7 pg (27.0-33.4) L 06/22/19 17:56 MCHC 31.0 g/dL (32.0-36.0) L 06/22/19 17:56 RDW 16.1 % (11.5-14.0) H 06/22/19 17:56 Plt Count 277 10^3/uL (150-450) 06/22/19 17:56 Lymph % (Auto) 13.1 % (13-45) 06/22/19 05:34 Dillon % (Auto) 3.9 % (3-13) 06/22/19 05:34 Eos % (Auto) 5.3 % (0-6) 06/22/19 05:34 Baso % (Auto) 0.5 % (0-2) 06/22/19 05:34 Absolute Neuts (auto) 6.4 10^3/uL (1.7-8.2) 06/22/19 05:34 Absolute Lymphs (auto) 1.1 10^3/uL (0.5-4.7) 06/22/19 05:34 Absolute Monos (auto) 0.3 10^3/uL (0.1-1.4) 06/22/19 05:34 Absolute Eos (auto) 0.4 10^3/uL (0.0-0.6) 06/22/19 05:34 Absolute Basos (auto) 0.0 10^3/uL (0.0-0.2) 06/22/19 05:34 Seg Neutrophils % 77.2 % (42-78) 06/22/19 05:34 PT 20.9 SEC (11.4-15.4) H 06/23/19 05:15 INR 1.78 06/23/19 05:15 Carbonic Acid 1.88 mmol/L (1.05-1.35) H 06/21/19 20:40 HCO3/H2CO3 Ratio 18:1 06/21/19 20:40 ABG pH 7.37 (7.35-7.45) 06/21/19 20:40 ABG pCO2 62.6 mmHg (35-45) H 06/21/19 20:40 ABG pO2 55.1 mmHg (80-100) L 06/21/19 20:40 ABG HCO3 35.3 mmol/L (20-24) H 06/21/19 20:40 ABG Total CO2 37.2 mmol/L (21-25) H 06/21/19 20:40 ABG O2 Saturation 86.8 % (94-98) L 06/21/19 20:40 ABG Base Excess 8.1 mmol/L 06/21/19 20:40 FiO2 ROOM AIR 06/21/19 20:40 Sodium 140.5 mmol/L (137-145) 06/22/19 05:34 Potassium 4.1 mmol/L (3.6-5.0) 06/22/19 05:34 Chloride 97 mmol/L (98-107) L 06/22/19 05:34 Carbon Dioxide 37 mmol/L (22-30) H 06/22/19 05:34 Anion Gap 7 (5-19) 06/22/19 05:34 BUN 14 mg/dL (7-20) 06/22/19 05:34 Creatinine 0.69 mg/dL (0.52-1.25) 06/22/19 05:34 Est GFR ( Amer) > 60 (>60) 06/22/19 05:34 Est GFR (MDRD) Non-Af > 60 (>60) 06/22/19 05:34 Glucose 112 mg/dL (75-110) H 06/22/19 05:34 Calcium 8.9 mg/dL (8.4-10.2) 06/22/19 05:34 Total Bilirubin 0.4 mg/dL (0.2-1.3) 06/21/19 16:20 Direct Bilirubin 0.3 mg/dL (0.0-0.4) 06/21/19 16:20 Neonat Total Bilirubin Not Reportable 06/21/19 16:20 Neonat Direct Bilirubin Not Reportable 06/21/19 16:20 Neonat Indirect Bili Not Reportable 06/21/19 16:20 AST 31 U/L (14-36) 06/21/19 16:20 ALT 16 U/L (<35) 06/21/19 16:20 Alkaline Phosphatase 85 U/L (38-126) 06/21/19 16:20 NT-Pro-B Natriuret Pep 133 pg/mL (<125) H 06/23/19 05:15 Total Protein 8.6 g/dL (6.3-8.2) H 06/21/19 16:20 Albumin 3.6 g/dL (3.5-5.0) 06/21/19 16:20 Urine Color YELLOW 06/22/19 02:15 Urine Appearance SLIGHTLY-CLOUDY 06/22/19 02:15 Urine pH 6.0 (5.0-9.0) 06/22/19 02:15 Ur Specific Gray 1.018 06/22/19 02:15 Urine Protein NEGATIVE mg/dL (NEGATIVE) 06/22/19 02:15 Urine Glucose (UA) NEGATIVE mg/dL (NEGATIVE) 06/22/19 02:15 Urine Ketones NEGATIVE mg/dL (NEGATIVE) 06/22/19 02:15 Urine Blood NEGATIVE (NEGATIVE) 06/22/19 02:15 Urine Nitrite NEGATIVE (NEGATIVE) 06/22/19 02:15 Urine Bilirubin NEGATIVE (NEGATIVE) 06/22/19 02:15 Urine Urobilinogen NEGATIVE mg/dL (<2.0) 06/22/19 02:15 Ur Leukocyte Esterase TRACE (NEGATIVE) H 06/22/19 02:15 Urine WBC 0-1 /HPF 06/22/19 02:15 Urine Mucus 2+ 06/22/19 02:15 Urine Ascorbic Acid NEGATIVE (NEGATIVE) 06/22/19 02:15 06/21/19 06/23/19 16:20 05:15 NT-Pro-B Natriuret Pep 165 H 133 H Impressions: Chest X-Ray 06/22/19 00:00 IMPRESSION: Borderline cardiomegaly with pulmonary vascular congestion. Low lung volumes. No acute finding. Plan Time Spent: Less than 30 Minutes Stroke Is this a Stroke Patient?: No Acute Heart Failure - Is this a Heart Failure Patient?: No
[2019-06-23 12:31] LABS: APPEARANCE,URINE CLEAR; BILIRUBIN,URINE NEGATIVE (NEGATIVE); COLOR,URINE YELLOW; GLUCOSE, URINE NEGATIVE (NEGATIVE); KETONES,URINE NEGATIVE (NEGATIVE); LEUKOCYTE ESTERASE,URINE NEGATIVE (NEGATIVE); NITRITE,URINE NEGATIVE (NEGATIVE); PROTEIN,URINE NEGATIVE (NEGATIVE); UROBILINOGEN,URINE NEGATIVE mg/dL (<2.0)
[2019-06-23 14:36] VITALS: BP 149/78
== END 2019-06-23 16:00 | disposition home or self-care (01) ==
LOC: ER 15:22 → EH 22:58 → 5 06-22 01:15
PROVIDERS: ADMIT Internal Medicine; ATTEND Internal Medicine
DX: I87.2 Venous insufficiency (chronic) (peripheral) (principal); L03.115 Cellulitis of right lower limb; E11.622 Type 2 diabetes mellitus with other skin ulcer; L97.218 Non-pressure chronic ulcer of right calf with other specified severity; L97.819 Non-pressure chronic ulcer of other part of right lower leg with unspecified severity; R09.02 Hypoxemia; E66.01 Morbid (severe) obesity due to excess calories; Z68.45 Body mass index [BMI] 70 or greater, adult; Z88.1 Allergy status to other antibiotic agents; L53.8 Other specified erythematous conditions; Z79.01 Long term (current) use of anticoagulants; Z86.718 Personal history of other venous thrombosis and embolism; Z86.711 Personal history of pulmonary embolism; Z23 Encounter for immunization; Z60.2 Problems related to living alone; Z88.2 Allergy status to sulfonamides; Z82.49 Family history of ischemic heart disease and other diseases of the circulatory system
CPT/HCPCS: 99284; 96365; 36415 ×3; 87040; 87070; 87205; 82803; 85025 ×2; 85610 ×2; 87077; 80048; 80053; 81001 ×2; 87186; 83880 ×2; 71046; 90686; G0378 ×4; J3490 ×3; J1885; J3370

== ENCOUNTER 2019-07-02 12:37 | Emergency (ER) | payer SELFPAY ==
--- NOTE | 2019-07-02 12:51 | ER Document Report ---
ED Medical Screen (RME) - General Chief Complaint: Leg Pain Stated Complaint: LEG PAIN Time Seen by Provider: 07/02/19 12:47 Primary Care Provider: CHI ADRIAN FNP [Primary Care Provider] - Follow up as needed Mode of Arrival: Wheelchair Information source: Patient Notes: 59-year-old female presents to ED for need of IV antibiotics. She was sent by her doctor to get IV antibiotics for her infected right leg. She states she was just seen here a week ago and they did admit her and she did get some antibiotics but the doctor said she needed more IV antibiotics. She is alert oriented respirations regular nonlabored she always has a O2 sat that is low it is fluctuating between 85 and 88 while in the pit area. Patient states this is her pre-her normal O2 sats. She states usually she runs but 77. If we used her left ring finger for her O2 sat none of the others reached at high. I have greeted and performed a rapid initial assessment of this patient. A comprehensive ED assessment and evaluation of the patient, analysis of test results and completion of medical decision making process will be conducted by an additional ED providers. TRAVEL OUTSIDE OF THE [place] IN LAST 30 DAYS: No - Related Data Allergies/Adverse Reactions: adhesive Allergy (Verified 06/21/19 16:04) Cephalosporins Allergy (Verified 06/21/19 16:04) Iodine and Iodide Containing Produc Allergy (Verified 06/21/19 16:04) silver Allergy (Verified 06/22/19 06:09) sulfamethoxazole [From Bactrim] Allergy (Verified 06/21/19 16:04) trimethoprim [From Bactrim] Allergy (Verified 06/21/19 16:04) Past Medical History - Social History Family history: None - Past Medical History Cardiac Medical History: Reports: Hx DVT, Hx Hypertension, Hx Pulmonary Embolism - COUMADIN Denies: Hx Coronary Artery Disease, Hx Heart Attack Pulmonary Medical History: Reports: Hx Asthma, Hx Bronchitis, Hx COPD Denies: Hx Pneumonia Neurological Medical History: Denies: Hx Cerebrovascular Accident, Hx Seizures Endocrine Medical History: Reports: Hx Diabetes Mellitus Type 2 - Diet controlled Renal/ Medical History: Denies: Hx Peritoneal Dialysis Musculoskeltal Medical History: Denies Hx Arthritis Skin Medical History: Reports Hx Cellulitis Psychiatric Medical History: Reports: Hx Depression Past Surgical History: Reports: Hx Section, Hx Cholecystectomy, Hx Orthopedic Surgery - foot, Hx Vascular Surgery - umbilical hernia, Other - Colonoscopy, EGD - Immunizations Hx Diphtheria, Pertussis, Tetanus Vaccination: Yes Physical Exam - Vital signs Vitals: Temp Pulse Resp BP Pulse Ox 98.3 F 104 H 24 H 172/60 H 80 L 07/02/19 12:43 07/02/19 12:43 07/02/19 12:43 07/02/19 12:43 07/02/19 12:43 Course - Vital Signs Vital signs: Temp Pulse Resp BP Pulse Ox 98.3 F 104 H 24 H 172/60 H 80 L 07/02/19 12:43 07/02/19 12:43 07/02/19 12:43 07/02/19 12:43 07/02/19 12:43 Doctor's Discharge - Discharge Referrals: CHI ADRIAN FNP [Primary Care Provider] - Follow up as needed
[2019-07-02] MEDS ORDERED: NORMAL SALINE 1000 ML 1,000 ML IV ONE (13:31)
[2019-07-02] MEDS ORDERED: MEROPENEM 1 GM VIAL IV ONE (13:33)
[2019-07-02] MEDS ORDERED: CLINDAMYCIN 900 MG/D5W RTU 900 MG/50 ML RTUPB IV ONE (13:34)
[2019-07-02 14:19] LABS: ABSOLUTE EOSINOPHILS # (AUTO) 0.5 10^3/uL (0.0-0.6); ABSOLUTE LYMPHOCYTES (AUTO) 1.3 10^3/uL (0.5-4.7); ABSOLUTE MONOCYTES (AUTO) 0.3 10^3/uL (0.1-1.4); ABSOLUTE NEUT (AUTO) 5.5 10^3/uL (1.7-8.2); BASOPHILS % (AUTO) 0.5 % (0-2); EOSINOPHILS % (AUTO) 6.6 % (0-6); HEMATOCRIT 36.2 % (36.0-47.0); HEMOGLOBIN 11.1 g/dL (12.0-15.5); LYMPHOCYTES % (AUTO) 16.9 % (13-45); MEAN CORPUSCULAR HEMOGLOBIN 25.4 pg (27.0-33.4); MEAN CORPUSCULAR HGB CONC 30.6 g/dL (32.0-36.0); MEAN CORPUSCULAR VOLUME 83 fl (80-97); MONOCYTES % (AUTO) 4.1 % (3-13); PLATELET COUNT 290 10^3/uL (150-450); RED BLOOD COUNT 4.35 10^6/uL (3.72-5.28); RED CELL DISTRIBUTION WIDTH 17.1 % (11.5-14.0); SEGMENTED NEUTROPHILS % (AUTO) 71.9 % (42-78); TOTAL CELLS COUNTED % (AUTO) 100 %; WHITE BLOOD COUNT 7.6 10^3/uL (4.0-10.5)
[2019-07-02 14:33] LABS: ALBUMIN 3.5 g/dL (3.5-5.0); ALKALINE PHOSPHATASE 89 U/L (38-126); ANION GAP 5 (5-19); ASPARTATE AMINO TRANSFERASE 30 U/L (14-36); BILIRUBIN,DIRECT 0.1 mg/dL (0.0-0.4); BILIRUBIN,TOTAL 0.4 mg/dL (0.2-1.3); BLOOD UREA NITROGEN 16 mg/dL (7-20); CALCIUM 8.4 mg/dL (8.4-10.2); GLUCOSE 88 mg/dL (75-110)
[2019-07-02 14:34] LABS: CARBON DIOXIDE 37 mmol/L (22-30); CHLORIDE 99 mmol/L (98-107)
--- NOTE | 2019-07-02 14:40 | RADIOLOGY REPORT (SQ) ---
EXAM DESCRIPTION: TIBIA FIBULA RIGHT COMPLETED DATE/TIME: 07/02/2019 1:15 pm REASON FOR STUDY: cellulitis lower leg COMPARISON: None. NUMBER OF VIEWS: Two views. TECHNIQUE: Two radiographic images acquired of the right tibia and fibula to include the knee and an kle in at least one projection. LIMITATIONS: None. FINDINGS: MINERALIZATION: Normal. BONES: No acute fracture or dislocation. No worrisome bone lesions. SOFT TISSUES: No obvious swelling or foreign body. OTHER: No other significant finding. IMPRESSION: NEGATIVE STUDY OF THE RIGHT TIBIA AND FIBULA. NO RADIOGRAPHIC EVIDENCE OF ACUTE INJURY. TECHNICAL DOCUMENTATION: JOB ID: [id number] 2010 [employer]- All Rights Reserved Reading location - IP/workstation name: [email or web address]
--- NOTE | 2019-07-02 14:41 | RADIOLOGY REPORT (SQ) ---
EXAM DESCRIPTION: CHEST SINGLE VIEW COMPLETED DATE/TIME: 07/02/2019 1:15 pm REASON FOR STUDY: chronic low 0xygen COMPARISON: 12/08/2015 EXAM PARAMETERS: NUMBER OF VIEWS: One view. TECHNIQUE: Single frontal radiographic view of the chest acquired. RADIATION DOSE: NA LIMITATIONS: None. FINDINGS: LUNGS AND PLEURA: No opacities, masses or pneumothorax. No pleural effusion. MEDIASTINUM AND HILAR STRUCTURES: No masses. Contour normal. HEART AND VASCULAR STRUCTURES: Heart normal in size. Normal vasculature. BONES: No acute findings. HARDWARE: None in the chest. OTHER: No other significant finding. IMPRESSION: NO ACUTE RADIOGRAPHIC FINDING IN THE CHEST. TECHNICAL DOCUMENTATION: JOB ID: [id number] 2010 [employer]- All Rights Reserved Reading location - IP/workstation name: [email or web address]
[2019-07-02] MEDS ORDERED: ONDANSETRON HCL INJ/PF 4 MG/2 ML SDV IV ONE (15:37)
[2019-07-02] MEDS ORDERED: MAG HYDROX/AL HYDROX/SIMETH SUSP 30 ML UDCUP PO ONE (15:39)
[2019-07-02] MEDS ORDERED: LIDOCAINE 2% VISCOUS SOLN 15 ML UDCUP PO ONE (15:39)
--- NOTE | 2019-07-02 16:24 | PDOC CONSULTATION ---
Consultation Consult Date: 07/02/19 Attending physician:: SOFIE MCCARTHY Provider Consulted: LISSETTE AKINS JR Consult reason:: cellulitis right leg History of Present Illness Admission Date/PCP: BALDO WILDE History of Present Illness: CARLYLE SINHA is a 59 year old female, morbidly obese who comes in for a wound of the right leg. Patient states on when she went to the wound care clinic at [place] she was told to come to the emergency room. Waited until today to come in. States that the wound is more foul-smelling than normal. Medical history is very important for this patient. Patient has entries into the computer for right lower extremity cellulitis and wound dating back to 2015. Beginning about 2017 there is an entry into the chart every month for wound care of the right lower extremity. Recently on June 20 she was seen here in [facility] ER for the same problem and at that time surgery did a consult recommended wet-to-dry dressings 3 times a day and follow-up at the wound clinic. He did not feel that the patient needed aggressive debridement, or surgical intervention. Patient was actually admitted to the hospital overnight, charged with a prescription for Bactrim for 9 days and told to follow-up with her primary care clinic as wound care clinic. Tells me she took 2 days worth of the Bactrim and then it caused her to have an upset stomach she stopped taking the medication. She had no vomiting but she had a GERD-like response with indigestion and nausea. When she was admitted on the her initial white count was 6.9 and when she was discharged on the it was 8.1. Today her white count is 7.6. Lactic acid level is 1.2. X-rays today of the tibia/fibula reveal no signs of worrisome lesions and there is no indication of osteomyelitis. I have had them take the dressing off of the leg and examined it today in the emergency room with the nurse present. She has received a dose of IV clindamycin and IV meropenem in the ER. Past Medical History Cardiac Medical History: Reports: DVT, Hypertension, Pulmonary Embolism - COUMADIN Denies: Coronary Artery Disease, Myocardial Infarction Pulmonary Medical History: Reports: Asthma, Bronchitis, Chronic Obstructive Pulmonary Disease (COPD) Denies: Pneumonia Neurological Medical History: Denies: Seizures Endocrine Medical History: Reports: Diabetes Mellitus Type 2 - Diet controlled Musculoskeltal Medical History: Denies: Arthritis Psychiatric Medical History: Reports: Depression Hematology: Reports: Anemia Past Surgical History Past Surgical History: Reports: Section, Cholecystectomy, Orthopedic Surgery - foot, Vascular Surgery - umbilical hernia, Other - Colonoscopy, EGD Social History Smoking Status: Never Smoker Frequency of Alcohol Use: None Hx Recreational Drug Use: No Drugs: None Hx Prescription Drug Abuse: No Family History Family History: Hypertension Parental Family History Reviewed: No Children Family History Reviewed: No Sibling(s) Family History Reviewed.: No Medication/Allergy Home Medications: Loratadine [Claritin 10 mg Tablet] 10 mg PO QAM 11/15/17 Sertraline HCl [Zoloft] 150 mg PO QAM 06/29/18 Oxybutynin Chloride [Ditropan Xl] 10 mg PO BID 06/22/19 Warfarin Sodium [Coumadin 2 mg Tablet] 2 mg PO QAM 06/22/19 Warfarin Sodium [Coumadin 5 mg Tablet] 5 mg PO QAM 06/22/19 Furosemide [Lasix 20 mg Tablet] 20 mg PO QAM #20 tablet 06/23/19 Sulfamethoxazole/Trimethoprim [Bactrim Ds Tablet] 2 each PO BID 9 Days tablet 06/23/19 Allergies/Adverse Reactions: adhesive Allergy (Verified 07/02/19 15:08) Cephalosporins Allergy (Verified 07/02/19 15:08) Iodine and Iodide Containing Produc Allergy (Verified 07/02/19 15:08) silver Allergy (Verified 07/02/19 15:08) sulfamethoxazole [From Bactrim] Allergy (Verified 07/02/19 15:08) trimethoprim [From Bactrim] Allergy (Verified 07/02/19 15:08) Review of Systems Constitutional: ABSENT: chills, fever(s), headache(s), weight gain, weight loss Respiratory: ABSENT: cough, hemoptysis Gastrointestinal: ABSENT: abdominal pain, constipation, diarrhea, hematemesis, hematochezia, nausea, vomiting Integumentary: PRESENT: erythema, lesions, wounds Neurological: ABSENT: abnormal gait, abnormal speech, confusion, dizziness, focal weakness, syncope Psychiatric: ABSENT: anxiety, depression, homidical ideation, suicidal ideation Physical Exam Vital Signs: Temp Pulse Resp BP Pulse Ox 98.3 F 104 H 24 H 172/60 H 88 L 07/02/19 12:43 07/02/19 12:43 07/02/19 12:43 07/02/19 12:43 07/02/19 12:57 Intake & Output 07/01/19 07/02/19 07/03/19 06:59 06:59 06:59 Weight 201.849 kg General appearance: PRESENT: no acute distress, morbidly obese, other Respiratory exam: PRESENT: clear to auscultation tony. ABSENT: rales, rhonchi, wheezes Cardiovascular exam: PRESENT: RRR. ABSENT: diastolic murmur, rubs, systolic murmur Extremities exam: PRESENT: pedal edema, tenderness, +2 edema Neurological exam: PRESENT: alert, awake, oriented to person, oriented to place, oriented to time, oriented to situation, CN II-XII grossly intact. ABSENT: motor sensory deficit Psychiatric exam: PRESENT: appropriate affect, normal mood. ABSENT: homicidal ideation, suicidal ideation Skin exam: PRESENT: erythema, vesicles, other - This is a circumferential infection involving the skin over the distal tibia fibula the right. Greenish- yellow drainage. No odor is present but not "foul" Results Laboratory Results: 07/02/19 13:48 07/02/19 13:48 07/02/19 07/02/19 07/02/19 13:48 13:48 13:50 WBC 7.6 RBC 4.35 Hgb 11.1 L Hct 36.2 MCV 83 MCH 25.4 L MCHC 30.6 L RDW 17.1 H Plt Count 290 Seg Neutrophils % 71.9 Sodium 140.7 Potassium 5.0 Chloride 99 Carbon Dioxide 37 H Anion Gap 5 BUN 16 Creatinine 0.60 Est GFR ( Amer) > 60 Glucose 88 Lactic Acid 1.2 Calcium 8.4 Total Bilirubin 0.4 AST 30 Alkaline Phosphatase 89 Total Protein 8.0 Albumin 3.5 Impressions: Tibia/Fibula X-Ray 07/02/19 13:36 IMPRESSION: NEGATIVE STUDY OF THE RIGHT TIBIA AND FIBULA. NO RADIOGRAPHIC EVIDENCE OF ACUTE INJURY. Chest X-Ray 07/02/19 13:38 IMPRESSION: NO ACUTE RADIOGRAPHIC FINDING IN THE CHEST. Assessment and Plan - Diagnosis (1) Patient noncompliance Is this a current diagnosis for this admission?: Yes (2) Abscess of right lower leg Is this a current diagnosis for this admission?: Yes (3) Cellulitis of right lower extremity Is this a current diagnosis for this admission?: Yes (4) Edema, lower extremity Is this a current diagnosis for this admission?: Yes (5) Morbid obesity with BMI of 70 and over, adult Is this a current diagnosis for this admission?: Yes (6) Nonhealing ulcers rt lower leg Is this a current diagnosis for this admission?: Yes (7) Venous stasis ulcer Is this a current diagnosis for this admission?: Yes - Plan Summary Summary: Multiple issues here. #1 the patient has just seen general surgery 8 days ago and he did not feel that this was a surgical situation. 2 patient does not have an allergy to sulfa she just has side effects, gastrointestinal, she chose to stop taking the antibiotic. #3 she was told on to go to the emergency room on for further evaluation and waited until Wednesday to come in. #4 this is an ongoing problem this been going on for 4 years or more. #5 I told patient she was going to lose her leg and have to have an amputation if this was not addressed properly. I told her she needs to be seen at a Medical Center where they have an aggressive wound care facility with surgeons that are trained in these sort of medical problems. Patient did receive 2 excellent antibiotics IV, clindamycin and meropenem in the ER. Going to call [facility] pharmacy and call in clindamycin 300 mg 3 times daily for 10 days. She is going to go to her appointment tomorrow at [place] [facility] and asked to be referred to [address] [facility] outpatient facilities, for their opinion. I told her she went to the emergency room but when those locations she might be seen and then referred for a later date or she might be seen and admitted. However with this viral pandemic she also may be sent away b ased on acuity. Patient seemed to understand the seriousness of this problem, I answered all of her questions. I will call the pharmacy for her clindamycin. - Time Time Spent with patient: 35 or more minutes
[2019-07-02 16:50] VITALS: BP 132/68
--- NOTE | 2019-07-03 16:53 | ER Document Report ---
Entered by CHRIS SUTTON SCRIBE 07/02/19 1328 Acting as scribe for:SOFIE MCCARTHY MD ED General - General Chief Complaint: Leg Pain Stated Complaint: LEG PAIN Time Seen by Provider: 07/02/19 12:47 Primary Care Provider: CHI ADRIAN FNP [Primary Care Provider] - Follow up as needed Mode of Arrival: Wheelchair Information source: Patient Notes: This 59 year old female patient presents to the emergency department today with pain and drainage from a open wound in her lower right leg. Patient states her doctor from the [place] wound [facility] told her to come to the emergency department for IV antibiotics. Patient states there is redness, green drainage and a strong odor from the wound. Patient states she was taking Bactrim but st opped x1 week ago because it upset her stomach. Patient states she visited the emergency department x1 week ago for her leg. Patient states she visits [place] x2 times each week to change the dressing on her wound, and last visited x4 days ago. Patient states out of antibiotics she has tried, Meropenem works best. TRAVEL OUTSIDE OF THE [place] IN LAST 30 DAYS: No - Related Data Allergies/Adverse Reactions: adhesive Allergy (Verified 07/02/19 15:08) Cephalosporins Allergy (Verified 07/02/19 15:08) Iodine and Iodide Containing Produc Allergy (Verified 07/02/19 15:08) silver Allergy (Verified 07/02/19 15:08) sulfamethoxazole [From Bactrim] Allergy (Verified 07/02/19 15:08) trimethoprim [From Bactrim] Allergy (Verified 07/02/19 15:08) Past Medical History - General Information source: Patient - Social History Smoking Status: Never Smoker Cigarette use (# per day): No Family History: Hypertension Patient has suicidal ideation: No Patient has homicidal ideation: No - Past Medical History Cardiac Medical History: Reports: Hx DVT, Hx Hypertension, Hx Pulmonary Embolism - COUMADIN Pulmonary Medical History: Reports: Hx Asthma, Hx Bronchitis, Hx COPD Endocrine Medical History: Reports: Hx Diabetes Mellitus Type 2 - Diet controlled Skin Medical History: Reports Hx Cellulitis Psychiatric Medical History: Reports: Hx Depression Past Surgical History: Reports: Hx Section, Hx Cholecystectomy, Hx Orthopedic Surgery - foot, Hx Vascular Surgery - umbilical hernia, Other - Colonoscopy, EGD - Immunizations Hx Diphtheria, Pertussis, Tetanus Vaccination: Yes Review of Systems - Review of Systems Constitutional: No symptoms reported EENT: No symptoms reported Cardiovascular: No symptoms reported Respiratory: No symptoms reported Gastrointestinal: No symptoms reported Genitourinary: No symptoms reported Female Genitourinary: No symptoms reported Musculoskeletal: No symptoms reported Skin: See HPI, Other - wound Hematologic/Lymphatic: No symptoms reported Neurological/Psychological: No symptoms reported -: Yes All other systems reviewed and negative Physical Exam - Vital signs Vitals: Temp Pulse Resp BP Pulse Ox 98.3 F 104 H 24 H 172/60 H 80 L 07/02/19 12:43 07/02/19 12:43 07/02/19 12:43 07/02/19 12:43 07/02/19 12:43 - General General appearance: Appears well, Alert - HEENT Head: Normocephalic, Atraumatic Eyes: Normal Pupils: PERRL - Respiratory Respiratory status: No respiratory distress Chest status: Nontender Chest palpation: Normal - Cardiovascular Rhythm: Regular Heart sounds: Normal auscultation Murmur: No - Abdominal Inspection: Morbidly Obese Distension: No distension Bowel sounds: Normal Tenderness: Nontender - Extremities General upper extremity: Normal inspection. No: Edema Calf: Tender, Other - Ulceration 20 cm length and width on lower right calf a karine the ankle. 90% cirucumferential. Weeping and malaodorous. Erythema. - Neurological Neuro grossly intact: Yes Cognition: Normal Orientation: AAOx4 - Psychological Associated symptoms: Normal affect, Normal mood - Skin Skin Temperature: Warm Skin Moisture: Dry Skin Color: Normal Course - Re-evaluation Re-evalutation: 07/02/19 16:19 Patient sitting in room receiving IV antibiotics at this time and dressing jon nge occurring. Patient shows no signs of distress at the moment. Patient is about to complete her clindamycin dosing at this time. Patient was consulted for admission to the hospital and hospitalist notes that patient was just discharged less than a week ago from inpatient care in our hospital. Surgeon consultation was made and it was determined that patient did not need to be an inpatient in the hospital to receive antibiotic therapy for her venous stasis ulcerations of her right leg. Patient 1 week later is returning to the hospital with the direction from her [place] wound care doctor that she needed to be in the hospital with IV antibiotics. Our hospitalist service team has consulted with the patient and has directed her to return back to her wound care clinic tomorrow at [place] [facility] and request a referral to a tertiary care facility such as Psychiatric hospital or [facility] for further evaluation and management of her wounds. - Vital Signs Vital signs: Temp Pulse Resp BP Pulse Ox 98 F 107 H 22 H 132/68 H 80 L 07/02/19 16:46 07/02/19 16:46 07/02/19 16:46 07/02/19 16:46 07/02/19 16:46 - Laboratory Result Diagrams: 07/02/19 13:48 07/02/19 13:48 Laboratory results interpreted by me: 07/02/19 07/02/19 13:48 13:48 Hgb 11.1 L MCH 25.4 L MCHC 30.6 L RDW 17.1 H Eos % (Auto) 6.6 H Carbon Dioxide 37 H Laboratories within range. No acute process noted patient has a chronic CO2 retention with a carbon dioxide 37 a anemia with a hemoglobin 11.1. Otherwise labs within normal limits. - Diagnostic Test Radiology reviewed: Image reviewed, Reports reviewed Radiology results interpreted by me: 07/02/19 16:22 X-rays of no acute process to bones or soft tissue noted on right tib-fib x-ray. Discharge - Discharge Clinical Impression: Cellulitis of right lower extremity, Nonhealing ulcers rt lower leg Condition: Good Disposition: HOME, SELF-CARE Additional Instructions: Cellulitis You have an infection of your skin and underlying soft tissues called cellulitis. This is due to bacteria, which can enter through any break in the skin, or even through an irritated hair follicle. Untreated, cellulitis will usually worsen. Antibiotics are required. Usually, warm packs or warm soaks, and elevation of the infected area are recommended. You should start getting better within 24 to 36 hours. Most infections respond quickly to the right medication. Follow-up care is important, however, to check for abscess (boil) formation, unsuspected foreign body, or resistant infection. If you develop fever, chills, or if the area of infection is becoming rapidly more swollen or painful, call the doctor at once. As discussed earlier from the hospitalist team who is recommending that you follow-up with your [place] wound care clinic doctor and requested he refer you to be evaluated at the wound clinic [facility] or [facility] Prescriptions: Clindamycin HCl 300 mg PO TID #30 capsule Ondansetron [Zofran Odt 4 mg Tablet] 1 - 2 tab PO Q4H PRN #15 tab.rapdis PRN Reason: For Nausea/Vomiting Referrals: CHI ADRIAN, SOL[employer] DESIGNER/INSTALLER [Primary Care Provider] - Follow up as needed I personally performed the services described in the documentation, reviewed and edited the documentation which was dictated to the scribe in my presence, and it accurately records my words and actions.
== END 2019-07-02 16:45 | disposition home or self-care (01) ==
LOC: ER 12:37
DX: L03.115 Cellulitis of right lower limb (principal); I87.2 Venous insufficiency (chronic) (peripheral); E11.9 Type 2 diabetes mellitus without complications; D64.9 Anemia, unspecified; I10 Essential (primary) hypertension; J44.9 Chronic obstructive pulmonary disease, unspecified; Z91.048 Other nonmedicinal substance allergy status; Z88.1 Allergy status to other antibiotic agents
CPT/HCPCS: 99283; 96375; 96365; 96367; 36415; 87040; 87070; 87205; 83605; 85025; 87077; 80053; 87186; 71045; 73590; J3490 ×2; J2405; J7030; J2185